=== PATIENT | female | born 1940 | race Caucasian/White ===

== ENCOUNTER → 2019-08-14 09:17 | Outpatient (BNVA) | payer MEDICARE, OTHER, SELFPAY | PROVIDERS: Family Provider Nurse Practitioner Family; PCP Nurse Practitioner; Visit Provider Nurse Practitioner | DX: I10 Essential (primary) hypertension (principal); E11.9 Type 2 diabetes mellitus without complications | CPT/HCPCS: 80053; 80061; 81000; 83036; 84443 ==

== ENCOUNTER 2019-10-26 10:35 | Outpatient (CLI) | payer MEDICARE, OTHER, SELFPAY ==
--- NOTE | 2019-10-26 10:43 | MM_ITS ---
WS: [id number] BILATERAL DIAGNOSTIC DIGITAL MAMMOGRAM WITH CAD HISTORY: HX OF BREAST CA COMPARISON: 10/24/2018 and 08/14/2017 Bilateral CC and MLO views submitted. Computer aided detection analyzed. Breast composition: There are scattered areas of fibroglandular density. Mild volume loss in the RIGH T breast from prior surgery. Distortion at the axillary tail is stable from the prior surgery. Benign calcifications in each breast. MM/[place] [id number] IMPRESSION: BI-RADS: 2-Benign FOLLOW UP: 1 Year Follow-up
[2019-10-26 11:23] LABS: Basophils # 0.1 10^3/uL (0.0-0.1); Eosinophils # 0.4 10^3/uL (0.0-0.8); Eosinophils % 4.5 %; Hematocrit 41.9 % (37.0-47.0); Hemoglobin 13.5 g/dL (11.5-15.3); Lymphocytes # 2.9 10^3/uL (0.8-4.8); Mean Corpuscular HGB Conc 32.2 g/dL (30.0-36.0); Mean Corpuscular Hemoglobin 28.4 pg (28.0-34.0); Mean Platelet Volume 10.6 fL (7.4-10.4); Monocytes # 0.7 10^3/uL (0.2-0.9); Monocytes % 8.5 %; Neutrophils # 4.1 10^3/uL (1.8-7.7); Neutrophils % 49.6 %; Nucleated Red Blood Cells % 0 %; Platelet Count 282 10^3/cmm (130-400); Red Blood Count 4.76 10^6/uL (4.1-5.3); White Blood Count 8.2 10^3/uL (4.0-10.0)
[2019-10-26 12:01] LABS: 25 Hydroxy Vitamin D 52 ng/mL (30-100); Alanine Aminotransferase 19 U/L (0-33); Albumin Level 4.3 g/dL (3.5-5.2); Alkaline Phosphatase 95 IU/L (35-105); Anion Gap 20.3 (5-19); Aspartate Amino Transferase 21 U/L (0-32); Blood Urea Nitrogen 10 mg/dL (8-23); Calcium 10.8 mg/dL (8.5-10.5); Carbon Dioxide 23 mmol/L (22-29); Chloride 97 mmol/L (98-107); Globulin 3.5 g/dL (1.3-4.6); Glucose 314 mg/dL (65-115); Osmolality Calculated 290 mOsm/kg (285-295); Potassium 4.3 mmol/L (3.5-5.1); Sodium 136 mmol/L (136-145); Total Bilirubin 0.2 mg/dL (0.15-1.2); Total Protein 7.8 g/dL (6.6-8.7)
[2019-10-26 12:29] LABS: Estmated Average Glucose 217; Hemoglobin A1C 9.2 % (4.0-6.0)
--- NOTE | 2019-11-02 09:25 | ONC FU_ITS ---
Dr. 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 She first became aware of a right breast lump in the summer of 2011. On 01/10/2012 her mammogram showed a 2.5 cm right breast mass at 12 o'clock position corresponding to 1.76 cm on ultrasound. On 02/08/2012 she underwent an excisional biopsy. The pathology revealed a 2.2 cm poorly differentiated invasive ductal carcinoma with irregular extensions into the stromal connective tissue. Microscopically, an invasive carcinoma came within 0.5 mm of the posterior margin. The associated DCIS was less than 1 mm from the inferior margin. Prognostic markers included ER positive at 96%and MS positive at99%. HER-2/jennifer was nonamplified, 1+ by IHC, FISH at 1.0. On 03/03/2012 she underwent re-excision of the breast and axillary sentinel lymph node biopsy. Surgical pathology showed a residual microscopic focus of DCIS measuring 2 mm, with negative margins. Two sentinel lymph nodes were negative for metastatic disease. Her chest x-ray on 04/08/12 had no evidence of metastatic disease. Her Oncotype DX score was 10, low risk, corresponding to 7% chance of distant recurrence following hormonal treatment. She completed 60.4 Gy of adjuvant radiation therapy on 06/12/2012. Adjuvant hormonal therapy with anastrozole 1 mg daily started on 08/14/2012. DEXA scan on 08/21/2012 showed severe osteopenia, T score -2.1 in lumbar spine. I had seen her for a followup visit on 02/13/2017. At that point her joint pain seemed to be getting worse, and I did have her stop the anastrozole. As of her follow-up visit in July 2017 she was feeling better, though at that point she had also stopped gabapentin. As she had completed 4-1/2 years of treatment, I opted not to attempt any further adjuvant hormonal therapy. Her other medical illnesses include hypertension, type II diabetes, GERD, hypothyroidism, degenerative arthritis, gout, obstructive sleep apnea, and chronic anxiety. In February 2018 she was admitted to the hospital with diastolic congestive heart failure. Her echocardiogram at that point showed normal left ventricular ejection fraction at 62%. There was no significant valvular disease reported. She also has peripheral arterial disease. Her surgical history also includes hysterectomy bilateral salpingo-oophorectomy in 1991. She is a nonsmoker. She is seen for a follow-up visit. She has been feeling pretty good generally, though she says she does not have much energy. She thinks some of that may just be related to depression, which she attributes [place]. Her ECOG score is 1. She has good appetite. She has not had fever or hot flashes. She does have sweating with the hot weather. She has occasional cough. She does not complain of shortness of breath. She reports occasional aching in the left chest. She has no GI complaints other than occasional heartburn, which she manages with medication as needed. Bowel function has been okay. She says she lost control of her bladder a long time ago. She has generalized joint pain, particularly in the hands. She thinks it is getting a little worse. She occasionally has headache. She does not have good balance. She does not have any focal neurologic symptoms. She does complain that she is getting pain in her calf muscles when she is walking. The pain is relieved by rest. Medications: AmLODIPine Besylate 1 (10 mg) Tablet Oral daily, Aspirin 1 (81 mg) Tablet Oral daily, Cholecalciferol 1 (2000 Units) Capsule Oral daily, Furosemide 1 (20 mg) Tablet Oral daily PRN, GlipiZIDE 1 (10 mg) Tablet SR 24 HR Oral b.i.d., hydrALAZINE HCl 1 Tablet (of 10 mg) Oral t.i.d., Ibuprofen 200 mg - Take 2 - 3 Tablet Oral at bedtime, Janumet XR Tablet SR 24 HR Oral daily, Levothroid 1 (88 mcg) Tablet Oral daily, Losartan Potassium 1 Tablet (of 25 mg) Oral daily, MetFORMIN HCl 1 Tablet (of 500 mg) Oral b.i.d., Metoprolol Tartrate 1 (50 mg) Tablet Oral b.i.d., Micro-K 1 (10 meq) Capsule, controlled release Oral daily PRN, PriLOSEC OTC Tablet, enteric coated Oral PRN, Valsartan-Hydrochlorothiazide 1 (320-12.5 mg) Tablet Oral daily, Venlafaxine HCl ER 1 Tablet (of 37.5 mg) Tablet SR 24 HR Oral daily Allergies: Adhesive, Narcotics, and Steri Strips. Review of Systems: Constitutional - She does not have much energy, but some of that she attributes to depression. Appetite is good and weight is stable. No fever or hot flashes. She has a lot of sweating with the hot weather. ECOG score is 1, ENMT - No sinus congestion/drainage. No mouth sores. No sore throat or difficulty swallowing, Hematologic/Lymphatic - She has easy bruising, Respiratory - No shortness of breath. She occasionally has cough. No pleuritic pain or hemoptysis, Cardiovascular - She has occasionally aching in the left chest. No palpitations, Gastrointestinal - No nausea or vomiting. She occasionally has heartburn. No diarrhea or constipation. No blood in the stool or black stools, Genitourinary (F) - No dysuria or hematuria. She has chronic bladder incontinence, Musculoskeletal - She has pain in all her joints, especially her hands. She says it is a little worse, Integumentary - No skin rash, Neurologic - She occasionally has headache. Balance is not good. No numbness or tingling. No other focal neurologic symptoms, Psychiatric - She has depression. Much of that is attributable to [place]. She has difficulty sleeping. Vital Signs: Performed on Oct 26, 2019 12:23 Height - 59.00 in Weight - 169.0 lbs (LOW) BSA - 1.72 sq.m BMI - 34.13 (HIGH) Temperature - 98.0 F (LOW) Pulse - 71 /min Respiration - 24 /min BP - 167/63 mm(hg) (HIGH) O2 Sat - 97 % Pain - 2 Physical Examination: Constitutional - She looks pretty good generally, Eyes - Sclerae nonicteric. Conjunctivae clear, ENMT - No lesions noted in the oral cavity, Hematologic/Lymphatic - No cervical or clavicular adenopathy, Respiratory - Lungs sound clear, Cardiovascular - Heart rhythm is regular. There is a II/ systolic murmur. There is no gallop or rub noted, Breasts - There is mild induration at the lumpectomy site in the right breast. There are no breast masses noted. There is no axillary adenopathy, Abdomen - Moderately distended. Liver and spleen are not enlarged. There is no abdominal mass or ascites noted and there is no inguinal adenopathy, Extremities - There is currently no edema. I am not able to palpate pedal pulses, but both feet are warm to touch, Neurologic - No focal neurologic deficits noted. Lab/Imaging: Test performed on Oct 26, 2019 10:52 Sodium 136 mmol/L TSH 0.30 uIU/mL Vitamin D (25-Hydroxy), Total 52 ng/mL Potassium 4.3 mmol/L Chloride 97 mmol/L CO2 23 mmol/L Anion Gap 20.3 BUN 10 mg/dL Creatinine 0.9 mg/dL Cr Clearance (Est) 63.35 mL/min Glucose 314 mg/dL Calcium 10.8 mg/dL Protein, Total 7.8 g/dL Albumin 4.3 g/dL Globulin 3.5 g/dL Bilirubin, Total 0.2 mg/dL ALT (SGPT) 19 U/L AST (SGOT) 21 U/L Alkaline Phosphatase 95 IU/L Hemoglobin A1C % 9.2 % WBC 8.2 10 3/uL RBC 4.76 10 6/uL HGB 13.5 g/dL HCT 41.9 % MCV 88.0 fL MCH 28.4 pg MCHC 32.2 g/dL RDW 13.0 % Platelet Count 282 10 3/cmm MPV 10.6 fL Neutrophils 4.1 10 3/uL Lymphocytes 2.9 10 3/uL Monocytes 0.7 10 3/uL Eosinophils 0.4 10 3/uL Basophils 0.1 10 3/uL Neutrophil % 49.6 % Lymphocyte % 36.0 % Monocyte % 8.5 % Eosinophil % 4.5 % Basophils % 1.0 % NRBC 0.0 /100WBC NRBC % 0 % Impression: 1. Patient with grade 3 invasive ductal carcinoma of the right breast, stage IIa, ER/MS positive and HER-2/jennifer nonamplified. 2. Her treatment included excisional biopsy in January 2012 followed by reexcision lumpectomy/axillary sentinel lymph node biopsy in February 2012. Her Oncotype DX score was 10, low risk. Adjuvant chemotherapy was not recommended. 3. She was given radiation to the right breast, completed on 06/12/2012 to a total dose of 6040 cGy. 4. Adjuvant hormonal therapy with anastrozole 1 mg daily began on 08/14/2012. Her other medical illnesses include: 5. Hypertension. 6. Type II diabetes. 7. Diastolic congestive heart failure. 8. Peripheral arterial disease. 9. Hypothyroidism. 10. GERD. 11. Degenerative arthritis. 12. Gout. 13. Obstructive sleep apnea. 12. Osteoporosis. 13. Chronic anxiety. As of her followup visit in January 2017 she was having significant fatigue and her musculoskeletal pain seemed to be getting worse. I did have her stop the anastrozole. As of her follow-up visit in July 2017 she was feeling better, though at that point she had also stopped taking gabapentin. As she had completed 4 years of treatment, I opted not to attempt any further adjuvant hormonal therapy. In February 2018 she had been admitted to the hospital with diastolic congestive heart failure. Since then she has continued to have somewhat marginal performance status, but there has been no evidence of recurrence of the breast cancer. Plan: She remains on observation/expectant management for her breast cancer. She will be scheduled for a followup visit with Dr. Mena for the claudication pain. She will be scheduled for a follow-up visit here in one year. Signed By: Humphrey Zuniga M.D. <<Signature on File>>
== END 2019-10-26 10:36 | disposition home or self-care (01) ==
LOC: RADSHAW 10:41
PROVIDERS: PCP Nurse Practitioner; Visit Provider Internal Medicine Medical Oncology
DX: Z08 Encounter for follow-up examination after completed treatment for malignant neoplasm (principal); Z85.3 Personal history of malignant neoplasm of breast; M81.0 Age-related osteoporosis without current pathological fracture; E11.51 Type 2 diabetes mellitus with diabetic peripheral angiopathy without gangrene; I11.0 Hypertensive heart disease with heart failure; I50.30 Unspecified diastolic (congestive) heart failure; E03.9 Hypothyroidism, unspecified; K21.9 Gastro-esophageal reflux disease without esophagitis; M19.90 Unspecified osteoarthritis, unspecified site; G47.33 Obstructive sleep apnea (adult) (pediatric); F41.9 Anxiety disorder, unspecified; M10.9 Gout, unspecified; Z79.84 Long term (current) use of oral hypoglycemic drugs
CPT/HCPCS: 36415; 77066; 80053; 82306; 83036; 84443; 85025; 99214

== ENCOUNTER → 2019-12-30 09:39 | Outpatient (BNVA) | payer MEDICARE, OTHER, SELFPAY | PROVIDERS: PCP Nurse Practitioner; Visit Provider Nurse Practitioner | DX: E11.65 Type 2 diabetes mellitus with hyperglycemia (principal); I10 Essential (primary) hypertension | CPT/HCPCS: 80053; 80061; 81000; 83036; 84443 ==

== ENCOUNTER → 2020-01-14 10:46 | Outpatient (BNVA) | payer MEDICARE, OTHER, SELFPAY | PROVIDERS: PCP Nurse Practitioner; Visit Provider Nurse Practitioner | DX: I10 Essential (primary) hypertension (principal); I50.9 Heart failure, unspecified; E11.65 Type 2 diabetes mellitus with hyperglycemia; E55.9 Vitamin D deficiency, unspecified | CPT/HCPCS: 80048 ==

== ENCOUNTER → 2020-03-07 14:51 | Outpatient (BNVA) | payer MEDICARE, OTHER, SELFPAY | PROVIDERS: PCP Nurse Practitioner; Visit Provider Nurse Practitioner | DX: I10 Essential (primary) hypertension (principal); E55.9 Vitamin D deficiency, unspecified | CPT/HCPCS: 80053 ==

== ENCOUNTER 2020-03-16 07:55 | Outpatient (CLI) | payer MEDICARE, OTHER, SELFPAY ==
--- NOTE | 2020-03-16 08:30 | CT_ITS ---
WS: [id number] CT HEAD TECHNIQUE: Noncontrast CT of the head obtained from the skullbase to the vertex. CLINICAL INFORMATION: headache and dizzy COMPARISON: CT 11 DLP: 925.[address] scans at [facility] use at least one of these dose optimization techniques: automat ed exposure control; mA and/or kV adjustment per patient size (includes targeted exams where dose is matched to clinical indication); or iterative reconstruction. FINDINGS: No evidence of intracranial hemorrhage or mass effect. Ventricular system and basal cisterns are harley nt. Mild small vessel changes with mild parenchymal volume loss. No extra-axial fluid collections. No evidence of mass or mass effect. Normal chery-white differentiation. Fluid within the left sphenoid sinus. Paranasal sinuses are otherwise well aerated. Mastoid air cells are well aerated. Normal visualized soft tissues. CT/CT head wo con* [id number] IMPRESSION: 1. No evidence of intracranial hemorrhage or mass effect. 2. Mild small vessel changes. Mild right volume loss. 3. Chronic lacunar infarct left basal ganglia. 4. Left sphenoid sinusitis 5. No acute intracranial findings.
== END 2020-03-16 07:56 | disposition home or self-care (01) ==
LOC: RADWPI 08:00
PROVIDERS: Family Provider Nurse Practitioner; PCP Nurse Practitioner; Visit Provider Nurse Practitioner
DX: R51.9 Headache, unspecified (principal); R42 Dizziness and giddiness; J32.3 Chronic sphenoidal sinusitis; I63.81 Other cerebral infarction due to occlusion or stenosis of small artery
CPT/HCPCS: 70450

== ENCOUNTER → 2020-05-16 14:59 | Outpatient (BNVA) | payer MEDICARE, OTHER, SELFPAY | PROVIDERS: Family Provider Nurse Practitioner; PCP Nurse Practitioner; Visit Provider Nurse Practitioner Family | DX: I50.9 Heart failure, unspecified (principal); I10 Essential (primary) hypertension | CPT/HCPCS: 80053; 83880; 85025 ==

== ENCOUNTER 2020-05-17 15:43 | Inpatient (IN) | payer MEDICARE, OTHER, SELFPAY ==
[2020-05-17] VITALS (9 sets, daily range): BP systolic 150–192; BP diastolic 75–92; PULSE 72–104; RESP 18–25; TEMP 36.8–36.9; O2SAT 87–100; BMI 33.1
--- NOTE | 2020-05-17 16:06 | ECG_ITS ---
[facility] Test Date: 2020-05-17 Pat Name: Raine Glover Department: Room: Gender: Female Under Trimmer: : 1940 Requested By: Wilber Kelley Order Number: [id number] Hakeem MD: Cecelia Araya M.D. Measurements Intervals [place] Rate: 91 P: 53 GA: 187 QRS: 99 QRSD: 105 T: -19 QT: 364 QTc: 449 Interpretive Statements SINUS RHYTHM BORDERLINE RIGHT AXIS DEVIATION [QRS AXIS > 90] ST DEVIATION AND MODERATE T-WAVE ABNORMALITY, CONSIDER LATERAL ISCHEMIA [-0.1+ mV T WAVE IN I/aVL/V5/V6]& inferior wall ischemia Compared to ECG 03/03/2018 23:53:05 Possible ischemia now present Sinus arrhythmia no longer present T-wave abnormality still present Electronically Signed On 05-17-2020 23:52:41 [employer] by Cecelia Araya M.D. [id number] f
--- NOTE | 2020-05-17 16:06 | XR_ITS ---
WS: [id number] Exam: XR chest 1V portable [id number] Date/Time of Exam: 05/17/2020 4:32 PM Reason For Exam: chest pain Comparison 03/03/2018 and 04/08/2012. Chronic interstitial changes are noted bilaterally. No consolidating infiltrates or pneumothorax. No pleural effusions. Normal cardiomediastinal structures and bony elements. Monitoring leads superimpos e the chest. XR/XR chest 1V portable [id number] IMPRESSION: 1. Chronic interstitial changes. No acute process noted.
[2020-05-17 16:44] LABS: Basophils # 0.1 10^3/uL (0.0-0.1); Basophils % 0.7 %; Eosinophils # 0.2 10^3/uL (0.0-0.8); Eosinophils % 2.2 %; Hematocrit 40.7 % (37.0-47.0); Hemoglobin 13.2 g/dL (11.5-15.3); Lymphocytes # 1.5 10^3/uL (0.8-4.8); Lymphocytes % 20.8 %; Mean Corpuscular HGB Conc 32.4 g/dL (30.0-36.0); Mean Corpuscular Hemoglobin 27.4 pg (28.0-34.0); Mean Corpuscular Volume 84.4 fL (81-99); Mean Platelet Volume 11.1 fL (7.4-10.4); Monocytes # 0.4 10^3/uL (0.2-0.9); Monocytes % 6.1 %; Neutrophils % 69.9 %; Nucleated Red Blood Cells % 0 %; Platelet Count 223 10^3/cmm (130-400); Red Blood Count 4.82 10^6/uL (4.1-5.3); Red Cell Distribution Width 13.5 % (12.1-15.1); White Blood Count 7.2 10^3/uL (4.0-10.0)
[2020-05-17 16:58] LABS: INR 1.02 (0.8-1.2)
[2020-05-17 17:01] LABS: D Dimer 1.32 ug/mIFEU (0-0.59)
[2020-05-17 17:12] LABS: Add Urine Microscopic? YES; Bilirubin Urine Neg (Negative); Blood Urine Neg (Negative); Glucose Urine UA 4+ (Normal); Ketones Urine Negative (Negative); Leukocyte Esterase Urine Negative (Negative); Nitrate Urine Negative (Negative); Protein Urine 2+ (Negative); Urine Appearance Clear (CLEAR); Urine Color Yellow (Yellow); Urobilinogen Urine 1 mg/dL (Negative)
[2020-05-17 17:12] LABS: Alanine Aminotransferase 21 U/L (0-33); Albumin Level 3.7 g/dL (3.5-5.2); Alkaline Phosphatase 93 IU/L (35-105); Aspartate Amino Transferase 24 U/L (0-32); Blood Urea Nitrogen 9 mg/dL (8-23); Calcium 9.5 mg/dL (8.5-10.5); Carbon Dioxide 30 mmol/L (22-29); Chloride 97 mmol/L (98-107); Globulin 2.4 g/dL (1.3-4.6); Glucose 330 mg/dL (65-115); NT Pro B Type Natriuretic Pept 1550 pg/mL (0-450); Osmolality Calculated 298 mOsm/kg (285-295); Sodium 138 mmol/L (136-145); Total Bilirubin 0.7 mg/dL (0.15-1.2); Total Protein 6.1 g/dL (6.6-8.7); Troponin(5th) Baseline 43 ng/L (0-10)
[2020-05-17 17:13] LABS: Anion Gap 13.9 (5-19)
[2020-05-17 17:14] LABS: Add Urine Culture? No; Bacteria Urine TRACE /hpf; RBC Urine 0-4 /hpf (0-2); Squamous Epithelial Cell Urine 0-4 /hpf (0-5); WBC Urine 0-4 /hpf (0-5)
[2020-05-17 17:16] LABS: Potassium 2.9 mmol/L (3.5-5.1)
--- NOTE | 2020-05-17 18:03 | CTR_ITS ---
PROCEDURE INFORMATION: Exam: CT Angiography Chest With Contrast Exam date and time: 05/17/2020 6:38 PM Age: 79 years old Clinical indication: Abnormal findings; Abnormal diagnostic tests; Elevated d-dimer; Shortness of breath; Prior surgery; Surgery type: RT lumpectomy; Additional info: Chest pain/dyspnea. Elevated d dimer. R/O pe TECHNIQUE: Imaging protocol: Computed tomographic angiography of the chest with intravenous contrast. 3D rendering (Not supervised by radiologist): MIP and/or 3D reconstructed images were created by the technologist. Radiation optimization: All CT scans at this facility use at least one of these dose optimization techniques: automated exposure control; mA and/or kV adjustment per patient size (includes targeted exams where dose is matched to clinical indication); or iterative reconstruction. Contrast material: OMNI 350; Contrast volume: 73 ml; Contrast route: INTRAVENOUS (IV); COMPARISON: CTA Chest-Pulmonary Emb [id number] 03/03/2018 6:34 PM RADIATION DOSE METRICS: Total DLP (mGy-cm): 522.32 FINDINGS: Pulmonary arteries: There is no pulmonary embolus. Aorta: Unremarkable. No aortic aneurysm. No aortic dissection. Lungs: There is diffuse interstitial and ground-glass opacity in the lungs compatible with pneumonitis versus CHF. More prominent bibasilar opacity is present, consistent with superimposed atelectasis, edema, or pneumonia. There is unchanged rounded ground-glass opacity right upper lobe measuring 11 mm in size series 3, image 15. No new or enlarging pulmonary nodule. Pleural space: There are small bilateral pleural effusions. Heart: The heart is enlarged. There is a small pericardial fluid collection present. Mediastinal space: A small hiatal hernia is present. Lymph nodes: Unremarkable. No enlarged lymph nodes. Spleen: The spleen is normal. An accessory splenule is present. Bones/joints: Old rib fracture deformities are noted. No acute bony abnormality is identified. Soft tissues: Unremarkable. CT/CT angio chest PE protcl [id number] IMPRESSION: 1. There is no pulmonary embolus. 2. There is diffuse interstitial and ground-glass opacity in the lungs compatible with pneumonitis versus CHF. 3. More prominent bibasilar opacity is present, consistent with superimposed atelectasis, edema, or pneumonia. Radiation Dose CTDIVOL = (mGy): DLP = 522.32 (mGy-cm)
--- NOTE | 2020-05-17 18:06 | ECG_ITS ---
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 Measurements Intervals [facility] Rate: 67 P: 20 WA: 162 QRS: 96 QRSD: 102 T: 251 QT: 402 QTc: 427 Interpretive Statements SINUS RHYTHM BORDERLINE RIGHT AXIS DEVIATION [QRS AXIS > 90] ST DEVIATION AND MODERATE T-WAVE ABNORMALITY, CONSIDER LATERAL ISCHEMIA [-0.1+ mV T WAVE IN I/aVL/V5/V6] ST DEVIATION AND MODERATE T-WAVE ABNORMALITY, CONSIDER INFERIOR ISCHEMIA [-0.1+ mV T WAVE IN II/aVF] Compared to ECG 05/17/2020 16:50:22 No significant changes Electronically Signed On 05-18-2020 0:11:38 [employer] by Cecelia Araya M.D. [id number]
[2020-05-17] MEDS: potassium chloride ER 20 mEq Tablet 40 MEQ PO (18:12)
--- NOTE | 2020-05-17 19:02 | ED_ITS ---
HPI - Chest Pain General: Chief Complaint: Chest Pain Stated Complaint: CHEST PAIN Time Seen by Provider: 05/17/20 16:06 History of Present Illness: HPI narrative: The patient is a 79-year-old female with past medical history CHF, diabetes, hypertension, XIOMARA. She comes to the ER after she felt midsternal chest pain at home. EMS arrived and gave her aspirin and sublingual nitroglycerin. She says the pain was worse with exertion but relieved itself after 10 minutes after taking the nitroglycerin sublingually. She has never had an WI she knows of but says she has been told she probably has had 1 and missed it. Denies any symptoms in the ER at present MD complaint: chest pain and chest heaviness Pertinent past history: prior WI Onset: during exertion Pain location: substernal Pain radiation: none Severity: moderate Quality: heaviness Associated symptoms: Reports no associated symptoms; Deny abdominal pain, dyspnea or palpitations Treatment prior to arrival: aspirin, nitroglycerin and oxygen Review of Systems General: Reports: 10 or more systems reviewed and unremarkable except in HPI and below Const: Denies: fatigue Eyes: Denies: change in vision, blurry vision or eye redness ENMT: Denies: throat pain, swelling of lips/tongue, ear or mastoid pain or nasal congestion Card: Reports: chest pain (Since resolved); Denies: palpitations, irregular heart rhythm, edema, dyspnea on exertion or orthopnea Resp: Denies: dyspnea, productive cough or non-productive cough GI: Denies: abdominal pain, diarrhea or GI cramping : Denies: flank pain, difficulty voiding, urinary frequency or urinary urgency Musc: Denies: neck pain, back pain, extremity pain, joint pain, joint redness, limited range of motion or muscle weakness Skin/Breast: Denies: rash, pruritus, erythema, skin pain or skin tenderness Neuro: Denies: headache(s), numbness in extremities, weakness in extremities, sensory changes, difficulty walking, dizziness, confusion or Slurred speech present Psych: Denies: anxiety or depression Endo: Denies: polyuria All/Imm: Denies: urticaria, throat swelling or tongue swelling PFSH ED PFSH: Medical History (Updated 05/17/20 @ 22:57 by Wilber Kelley MD) Adult onset hypothyroidism CHF (congestive heart failure) Controlled diabetes mellitus with hyperglycemia GERD (gastroesophageal reflux disease) Gout Hearing loss right ear History of breast cancer HTN (hypertension) Non compliance w medication regimen XIOMARA (obstructive sleep apnea) PAD (peripheral artery disease) Status post angioplasty of lower extremities bilaterally as per the patient Urinary bladder disorder wears attends Vitamin D deficiency Surgical History S/P cataract extraction S/P hysterectomy S/P lumpectomy of breast Right Family History Grandmother Cancer BREAST Social History Smoking and tobacco status: never smoked Second hand smoke exposure: No Smoking risk assessment/counseling performed?: No Alcohol intake: never Desire information about alcohol rehabilitation?: No Counseling given: No Desire information about substance/drug rehabilitation?: No Counseling given: No Adopted: No Caregiver/support person: No Lives independently: Yes Household members: none Housing: House Marital status: / Number of children: 1 Number of grandchildren: 1 Highest education level completed: High School Graduate service: No Current occupational status: retired Pets and animals: Yes Pets & animals: dog(s) History of recent travel: No Current gender identity: Female Special sydnie needs: No Physical Exam Const: COMMON NORMALS: no acute distress, average body habitus, patient oriented x3, no limitations, healthy appearing, alert and well nourished GENERAL APPEARANCE: cooperative, comfortable, well kempt and well developed ORIENTATION/CONSCIOUSNESS: Yes awake, Yes oriented to person, Yes oriented to place and Yes oriented to time HENMT: COMMON NORMALS: normocephalic, external ears normal and Normal external nose present HEAD & SCALP: normal to inspection and normocephalic NOSE: Normal external nose present EXTERNAL EAR: Yes external ears normal MOUTH: Normal oral and palatal mucosa present THROAT: posterior oropharynx normal Eye: COMMON NORMALS: Equal, round and reactive pupils present and EOMs intact bilaterally GENERAL EYE: appearance normal, both eyes and all related structures PUPIL: Yes Equal, round and reactive pupils present Neck/C-Spine: COMMON NORMALS: full ROM, no lymphadenopathy, no meningeal signs and no JVD GENERAL: Yes normal visual inspection Lymph: LYMPHATIC: no lymphadenopathy noted Chest: COMMONS NORMALS: normal inspection of the chest and normal palpation of entire chest wall Resp: COMMON NORMALS: normal respiratory effort, No retractions, No use of accessory muscles, clear to auscultation bilaterally and percussion normal EF FORT & INSPECTION: Yes able to speak in complete sentences AUSCULTATION: clear to auscultation bilaterally PERCUSSION: percussion normal Cardio: COMMON NORMALS: no JVD, regular rate, regular rhythm, S1 normal heart sound present, S2 normal heart sound present and Peripheral pulses 2+ throughout RATE: regular rate RHYTHM: regular rhythm HEART SOUNDS: S1 normal heart sound present and S2 normal heart sound present PERIPHERAL PULSES: Peripheral pulses 2+ throughout GI: COMMON NORMALS: Normal to inspection, nondistended, normoactive bowel sounds present, Soft to palpation, non-tender and no masses INSPECTION: Yes normal to inspection PALPATION: Yes Soft to palpation : COMMON NORMALS: Yes no CVA tenderness BLADDER/KIDNEY EXAM: Yes no CVA tenderness Back/Pelvis: COMMON NORMALS: no CVA tenderness, thoracic and lumbar spine normal to inspection, no thoracic nor lumbar tenderness and thoraco-lumbar ROM normal Extremity: COMMON NORMALS: normal to inspection, full ROM, capillary refill normal, no joint enlargement and no pedal edema GENERAL: Yes normal exam except as noted Neuro: COMMON NORMALS: patient oriented x3, CN's II-XII intact bilaterally, moves all extremities, no focal motor deficits, no sensory deficits noted and gait normal SENSORIUM/ORIENTATION: Yes alert, Yes oriented to person, Yes oriented to place and Yes oriented to time MENINGEAL SIGNS: Yes no meningeal signs Psych: COMMON NORMALS: mental status grossly normal, Normal thought process present, cooperative, normal affect and speech normal APPEARANCE: Yes well kempt ATTITUDE: Yes calm SPEECH: Yes normal speech THOUGHT PROCESS: Normal thought process present Skin: COMMON NORMALS: no rashes or lesions noted GENERAL SKIN EXAM: no rashes or lesions noted Course Vital Signs: Vital signs: Vital Signs Temperature 98.3 F 05/17/20 15:48 Pulse Rate 77 05/17/20 21:45 Respiratory Rate 25 H 05/17/20 21:45 Blood Pressure 154/82 05/17/20 20:42 Pulse Oximetry 100 05/17/20 21:45 MDM - Chest Pain MDM Narrative: Medical decision making narrative: The patient came in for midsternal chest pain suspicious for true angina. Symptoms were relieved by nitroglycerin in the field and she was also given aspirin in the field. She did not have any more chest pain in the ER. Her first troponin was relatively normal however her delta troponin in 2 hours was increased 40. This is suspicious and discussed with Dr. Chatman who recommended diagnosis NSTEMI and that she be admitted. Discussed with Dr. Nicole who accepts to inpatient. Lab Data: Labs: Lab Results 05/17/20 05/17/20 05/17/20 Range/Units 16:20 16:20 16:20 WBC 7.2 (4.0-10.0) 10^3/ uL RBC 4.82 (4.1-5.3) 10^6/u L Hgb 13.2 (11.5-15.3) g/dL Hct 40.7 (37.0-47.0) % MCV 84.4 (81-99) fL MCH 27.4 L (28.0-34.0) pg MCHC 32.4 (30.0-36.0) g/dL RDW 13.5 (12.1-15.1) % Plt Count 223 (130-400) 10^3/c mm MPV 11.1 H (7.4-10.4) fL Neut % (Auto) 69.9 % Lymph % (Auto) 20.8 % [place] % (Auto) 6.1 % Eos % (Auto) 2.2 % Baso % (Auto) 0.7 % Neut # (Auto) 5.00 (1.8-7.7) 10^3/u L Lymph # (Auto) 1.5 (0.8-4.8) 10^3/u L [place] # (Auto) 0.4 (0.2-0.9) 10^3/u L Eos # (Auto) 0.2 (0.0-0.8) 10^3/u L Baso # (Auto) 0.1 (0.0-0.1) 10^3/u L Nucleated RBC % (a uto) 0 % Nucleated RBCs # 0.0 /100WBC PT 13.70 (12.1-14.9) SECO NDS INR 1.02 (0.8-1.2) D-Dimer 1.32 H (0-0.59) ug/mIFE U Sodium 138 (136-145) mmol/L Potassium 2.9 L (3.5-5.1) mmol/L Chloride 97 L (98-107) mmol/L Carbon Dioxide 30 H (22-29) mmol/L Anion Gap 13.9 (5-19) BUN 9 (8-23) mg/dL Creatinine 0.6 (0.5-0.9) mg/dL GFR Calculation Not Reportable Glucose 330 H (65-115) mg/dL Calculated Osmolal ity 298 H (285-295) mOsm/k g Calcium 9.5 (8.5-10.5) mg/dL Total Bilirubin 0.7 (0.15-1.2) mg/dL AST 24 (0-32) U/L ALT 21 (0-33) U/L Alkaline Phosphata se 93 (35-105) IU/L Troponin T Baselin e (0-10) ng/L Troponin T 120 Min kolton (0-10) ng/L Delta Troponin T (0-10) ABS# NT-Pro-B Natriuret Pep 1550 H (0-450) pg/mL Total Protein 6.1 L (6.6-8.7) g/dL Albumin 3.7 (3.5-5.2) g/dL Globulin 2.4 (1.3-4.6) g/dL Urine Color (Yellow) Urine Appearance (CLEAR) Urine pH (5-7) Ur Specific Gravit y (1.005-1.030) Urine Protein (Negative) Urine Glucose (UA) (Normal) Urine Ketones (Negative) Urine Blood (Negative) Urine Nitrate (Negative) Urine Bilirubin (Negative) Urine Urobilinogen (Negative) mg/dL Ur Leukocyte Jocelyn ase (Negative) Urine RBC (0-2) /hpf Urine WBC (0-5) /hpf Ur Squamous Epith Cells (0-5) /hpf Amorphous Sediment Urine Bacteria (NONE) /hpf 05/17/20 05/17/20 05/17/20 Range/Units 16:20 16:42 18:40 WBC (4.0-10.0) 10^3/ uL RBC (4.1-5.3) 10^6/u L Hgb (11.5-15.3) g/dL Hct (37.0-47.0) % MCV (81-99) fL MCH (28.0-34.0) pg MCHC (30.0-36.0) g/dL RDW (12.1-15.1) % Plt Count (130-400) 10^3/c mm MPV (7.4-10.4) fL Neut % (Auto) % Lymph % (Auto) % [place] % (Auto) % Eos % (Auto) % Baso % (Auto) % Neut # (Auto) (1.8-7.7) 10^3/u L Lymph # (Auto) (0.8-4.8) 10^3/u L [place] # (Auto) (0.2-0.9) 10^3/u L Eos # (Auto) (0.0-0.8) 10^3/u L Baso # (Auto) (0.0-0.1) 10^3/u L Nucleated RBC % (a uto) % Nucleated RBCs # /100WBC PT (12.1-14.9) SECO NDS INR (0.8-1.2) D-Dimer (0-0.59) ug/mIFE U Sodium (136-145) mmol/L Potassium (3.5-5.1) mmol/L Chloride (98-107) mmol/L Carbon Dioxide (22-29) mmol/L Anion Gap (5-19) BUN (8-23) mg/dL Creatinine (0.5-0.9) mg/dL GFR Calculation Glucose (65-115) mg/dL Calculated Osmolal ity (285-295) mOsm/k g Calcium (8.5-10.5) mg/dL Total Bilirubin (0.15-1.2) mg/dL AST (0-32) U/L ALT (0-33) U/L Alkaline Phosphata se (35-105) IU/L Troponin T Baselin e 43 H (0-10) ng/L Troponin T 120 Min [place] 86.15 H (0-10) ng/L Delta Troponin T 43.15 H* (0-10) ABS# NT-Pro-B Natriuret Pep (0-450) pg/mL Total Protein (6.6-8.7) g/dL Albumin (3.5-5.2) g/dL Globulin (1.3-4.6) g/dL Urine Color Yellow (Yellow) Urine Appearance Clear (CLEAR) Urine pH 7.0 (5-7) Ur Specific Gravit y 1.010 (1.005-1.030) Urine Protein 2+ H (Negative) Urine Glucose (UA) 4+ H (Normal) Urine Ketones Negative (Negative) Urine Blood Neg (Negative) Urine Nitrate Negative (Negative) Urine Bilirubin Neg (Negative) Urine Urobilinogen 1 H (Negative) mg/dL Ur Leukocyte Jocelyn ase Negative (Negative) Urine RBC 0-4 H (0-2) /hpf Urine WBC 0-4 H (0-5) /hpf Ur Squamous Epith Cells 0-4 H (0-5) /hpf Amorphous Sediment Not Reportable Urine Bacteria Trace (NONE) /hpf Discharge Plan Discharge Patient Disposition: Admitted As Inpatient Admit Provider: Anabela Nicole Clinical Impression: NSTEMI (non-ST elevated myocardial infarction) Condition: Stable Coding Level of Care Code ED Auto Roller for g Fwd Exam Comprehensive
[2020-05-17 19:04] LABS: Troponin 5 2HR 86.15 ng/L (0-10)
[2020-05-17 19:18] LABS: Troponin 5 2HR Delta 43.15 ABS# (0-10)
--- NOTE | 2020-05-17 19:45 | PM.HP ---
Providers/Chief Complaint Primary Care Provider: Jamie Brock, METER READER INSPECTOR-C Chief Complaint: CHEST PAIN History of Present Illness Raine Glover is a 79 year old female no known previous history of coronary artery disease presented today with chief complaint of midsternal chest pain. Patient is stating that for last 3 to 4 days she has been having shortness of breath on exertion, she was seen at [facility] for similar complaint and was recommended to go to the hospital for further evaluation but she was holding off. She went for grocery shopping at [facility] today and when she was unloading her shopping cart in her car she started experiencing substernal chest heaviness, her friend took her to the clinic, time where EKG was obtained it showed some concerning changes she was told that he was having a mini heart attack hence was directed towards our ER. Patient is stating that her chest pain persisted until she received aspirin and sublingual nitroglycerin which was given by EMS. She is describing this pain as heaviness nonradiating not associated with nausea or vomiting or diaphoresis. No recent orthopnea or PND she has been compliant with her Lasix for congestive heart failure. She is endorsing losing 5 to 10 pounds. Patient is stating that about 3 to 4 years ago she underwent balloon angioplasty of bilateral lower extremities which significantly improved her leg pains. She is also endorsing a fall after tripping over her dog but she was told to get carotid Doppler for a possible TIA. At the time of my evaluation she was hypertensive no active chest pain sinus rhythm, was saturating well on room air. Significant delta troponin noted ST depression 1 mm V4 V5 V6, inferior lateral T wave inversions Chest x-ray did not reveal any pneumonia, potassium 2.9, glucose 330 without signs of DKA, D-dimer 1.3 CT chest did not reveal PE findings consistent with CHF She has been given therapeutic dose of Lovenox in the ER Dr. Chatman has been notified as well. Review of Systems Const: Reports: fatigue and malaise; Denies: fever(s), chills or body aches Eyes: Denies: change in vision ENMT: Denies: throat pain Card: Reports: chest pain and dyspnea on exertion; Denies: orthopnea or leg pain with exertion Resp: Reports: dyspnea GI: Denies: abdominal pain : Denies: flank pain or urinary frequency Musc: Denies: neck pain or extremity swelling Skin/Breast: Reports: lesions; Denies: rash or new lesions Neuro: Denies: headache(s) Psych: Denies: anxiety Endo: Denies: polyuria Kade/Lymph: Denies: easy bruising All/Imm: Denies: urticaria Medications/Allergies Home Medications Medication Instructions Recorded Confirmed Last Taken Type amlodipine 10 mg tablet 10 mg PO DAILY 07/17/19 05/17/20 Unknown History hydralazine 10 mg tablet 10 mg PO BID tab 07/21/19 05/17/20 Unknown History aspirin 81 mg tablet,delayed 81 mg PO DAILY 01/01/20 05/17/20 Unknown History release cholecalciferol (vitamin D3) 125 125 mcg PO DAILY #90 cap 01/01/20 05/17/20 Unknown Rx mcg (5,000 unit) capsule omeprazole 20 mg capsule,delayed 20 mg PO DAILY PRN 01/01/20 05/17/20 Unknown History release walker #1 each 03/07/20 05/17/20 Unknown Rx meclizine 25 mg tablet 25 mg PO .at bedtime #30 tab 03/10/20 05/17/20 Unknown Rx insulin detemir U-100 100 unit/mL 20 unit SUBCUT DAILY #15 ml 03/29/20 05/17/20 Unknown Rx (3 mL) subcutaneous pen liraglutide 0.6 mg/0.1 mL (18 mg/3 1.2 mg SUBCUT DAILY #9 ml 03/29/20 05/17/20 Unknown Rx mL) subcutaneous pen injector pen needle, diabetic 33 gauge x #100 ea 03/29/20 05/17/20 Unknown Rx /32 atorvastatin 20 mg tablet 20 mg PO DAILY #90 tab 04/13/20 05/17/20 Unknown Rx glipizide 10 mg tablet 10 mg PO BID #180 tab 04/13/20 05/17/20 Unknown Rx levothyroxine 88 mcg tablet 88 mcg PO DAILY #90 tab 04/13/20 05/17/20 Unknown Rx losartan 100 mg tablet 100 mg PO DAILY #90 tab 04/13/20 05/17/20 Unknown Rx metformin 500 mg tablet,extended 500 mg PO BID #180 tab 04/13/20 05/17/20 Unknown Rx release 24 hr metoprolol tartrate 50 mg tablet 50 mg PO BID #180 tab 04/13/20 05/17/20 Unknown Rx potassium citrate 5 mEq (540 mg) 5 meq PO BID #180 tab 04/13/20 05/17/20 Unknown Rx tablet,extended release venlafaxine 37.5 mg 37.5 mg PO DAILY #90 cap 04/13/20 05/17/20 Unknown Rx capsule,extended release 24 hr amoxicillin 875 mg-potassium 1 tab PO BID 10 Days #20 tab 05/16/20 05/17/20 Unknown Rx clavulanate 125 mg tablet furosemide 20 mg tablet See Rx Instructions PO DAILY 30 05/16/20 05/17/20 Unknown Rx Days #33 tab nystatin 100,000 unit/gram topical 1 applic TOPICAL TID 30 Days #60 g 05/16/20 05/17/20 Unknown Rx powder Allergies Allergy/AdvReac Type Severity Reaction Status Date / Time adhesive tape Allergy Unknown ALGY-Rash Verified 05/17/20 09:38 codeine Allergy Unknown ALGY-Rash Verified 05/17/20 09:38 morphine Allergy Unknown Verified 05/17/20 09:38 acetaminophen AdvReac Unknown ADR-Nausea Verified 05/17/20 09:38 propoxyphene AdvReac Unknown ADR-Nausea Verified 05/17/20 09:38 PFSH Acute PFSH: Medical History (Updated 05/17/20 @ 21:31 by Anabela Nicole MD) Adult onset hypothyroidism CHF (congestive heart failure) Controlled diabetes mellitus with hyperglycemia GERD (gastroesophageal reflux disease) Gout Hearing loss right ear History of breast cancer HTN (hypertension) Non compliance w medication regimen XIOMAAR (obstructive sleep apnea) PAD (peripheral artery disease) Status post angioplasty of lower extremities bilaterally as per the patient Urinary bladder disorder wears attends Vitamin D deficiency Surgical History S/P cataract extraction S/P hysterectomy S/P lumpectomy of breast Right Family History Grandmother Cancer BREAST Social History Smoking and tobacco status: never smoked Second hand smoke exposure: No Smoking risk assessment/counseling performed?: No Alcohol intake: never Desire information about alcohol rehabilitation?: No Counseling given: No Desire information about substance/drug rehabilitation?: No Counseling given: No Adopted: No Caregiver/support person: No Lives independently: Yes Household members: none Housing: House Marital status: / Number of children: 1 Number of grandchildren: 1 Highest education level completed: High School Graduate service: No Current occupational status: retired Pets and animals: Yes Pets & animals: dog(s) History of recent travel: No Current gender identity: Female Special sydnie needs: No Vitals/I&O/Wt Last Vital Signs Temp 98.3 F 05/17/20 15:48 Pulse 82 05/17/20 19:10 Resp 19 H 05/17/20 19:10 BP 150/92 05/17/20 18:06 Pulse Ox 100 05/17/20 19:10 Weight last 48 hrs Weight 74.389 kg Physical Exam Narrative: EXAM NARRATIVE: This is a very pleasant elderly female who is currently sitting comfortably in semi-Franco position saturating well on room air Not complaining of active chest pain or acute respite distress Appears stated age S1, S2 no tachycardia or signs of heart failure, systolic murmur right second intercostal space grade 2/6 No carotid bruit noted Abdomen soft nontender bowel sound present Lower extremity no edema noted Awake alert oriented x3 GCS 15 No neurological deficit Bilateral breath sounds without adventitious rhonchi or wheezing, findings would be consistent with CHF bibasilar crackles Appropriate mood and affect Patient endorsing joint pain but no active swelling or redness Appropriate mood and affect Data : 05/17/20 16:20 05/17/20 16:20 A&P Assessment and plan (1) NSTEMI (non-ST elevated myocardial infarction): Status: Acute (2) Hyperglycemia: Status: Acute (3) Hypokalemia: Status: Acute Additional A&P Information NSTEMI Typical chest pain relieved with nitro lasting more than 30 minutes Significant delta troponin with ischemic changes in inferior lateral leads Dr. Deras consulted Started aspirin Plavix loading dose, start ACS protocol therapeutic dose of Lovenox initiated in the ER No active chest pain, CTA rule out PE Serial troponin and EKG Echo in the morning She has history of peripheral vascular disease status post balloon angioplasty no active exacerbation of pain, most likely she will benefit from an angiogram Hyperglycemia without DKA: I will keep her on consistent carb moderate sliding scale and reduce her detemir to Lantus 15 units for now Hypokalemia most likely secondary to Lasix use No active vomiting or diarrhea Check magnesium level, potassium repleted She is euvolemic Congestive heart failure without acute exacerbation Patient looks euvolemic Hold her Lasix for tonight replete potassium Hypothyroidism: Check TSH, continue levothyroxine Full code Consistent carb cardiac diet DVT prophylaxis therapeutic Lovenox Attestations Medical Necessity Statement*: Anticipating stay cross more than 2 midnights for management for NSTEMI and hyperglycemia Time Spent in Patient Care: (>than 50% of time spent in counselling and/or direct pt care on unit). 50mins Coding Level of Care Code Acute Cost And Risk Analysis Manager for Kenny Dominguezd Diagnoses NSTEMI (non-ST elevated myocardial infarction) I21.4 Hyperglycemia R73.9 Hypokalemia E87.6
[2020-05-17] MEDS: enoxaparin 80 mg/0.8 mL Syringe 70 MG SUBCUT (19:55)
--- NOTE | 2020-05-17 22:06 | ECG_ITS ---
[facility] Test Date: 2020-05-17 Pat Name: Raine Glover Department: Room: 279 Gender: Female Portal Administrator: : 1940 Requested By: Wilber Kelley Order Number: [id number] Hakeem MD: Cecelia Araya M.D. Measurements Intervals [place] Rate: 80 P: 41 WV: 170 QRS: 70 QRSD: 106 T: 210 QT: 361 QTc: 419 Interpretive Statements SINUS RHYTHM ST DEVIATION AND MODERATE T-WAVE ABNORMALITY, CONSIDER LATERAL ISCHEMIA [-0.1+ mV T WAVE IN I/aVL/V5/V6] Compared to ECG 05/17/2020 18:40:20 No significant changes Electronically Signed On 05-18-2020 0:14:27 FIRE WATCHER by Cecelia Araya M.D. [id number]
[2020-05-17 23:10] LABS: Troponin 5 6HR 135.5 ng/L (0-10)
[2020-05-17 23:11] LABS: Troponin 5 6HR Delta 92.5 ng/L (0-12)
[2020-05-18] VITALS (12 sets, daily range): BP systolic 163–192; BP diastolic 60–83; PULSE 71–93; RESP 11–23; TEMP 36.6–37.2; O2SAT 92–97
[2020-05-18] MEDS: aspirin 325 mg EC Tablet PO (00:07)
[2020-05-18] MEDS: clopidogrel 300 mg Tablet PO (00:08)
[2020-05-18] MEDS: metoprolol tartrate 25 mg Tablet 12.5 MG PO (00:09)
[2020-05-18] MEDS: hyDRALAzine 10 mg Tablet PO ×2 (00:09→10:02)
[2020-05-18 05:25] LABS: Basophils % 0.6 %; Eosinophils # 0.3 10^3/uL (0.0-0.8); Eosinophils % 4.8 %; Hematocrit 37.3 % (37.0-47.0); Hemoglobin 11.7 g/dL (11.5-15.3); Lymphocytes # 2.1 10^3/uL (0.8-4.8); Lymphocytes % 30.7 %; Mean Corpuscular HGB Conc 31.4 g/dL (30.0-36.0); Mean Corpuscular Hemoglobin 27.7 pg (28.0-34.0); Mean Corpuscular Volume 88.4 fL (81-99); Mean Platelet Volume 11.4 fL (7.4-10.4); Monocytes # 0.5 10^3/uL (0.2-0.9); Monocytes % 7.5 %; Neutrophils # 3.77 10^3/uL (1.8-7.7); Neutrophils % 56.1 %; Nucleated Red Blood Cells % 0 %; Platelet Count 194 10^3/cmm (130-400); Red Blood Count 4.22 10^6/uL (4.1-5.3); Red Cell Distribution Width 13.7 % (12.1-15.1); White Blood Count 6.7 10^3/uL (4.0-10.0)
[2020-05-18 06:14] LABS: Glucose Point of Care 289 mg/dL (70-110)
[2020-05-18 06:38] LABS: Anion Gap 14.9 (5-19); Blood Urea Nitrogen 10 mg/dL (8-23); Calcium 10.1 mg/dL (8.5-10.5); Carbon Dioxide 30 mmol/L (22-29); Chloride 99 mmol/L (98-107); Glucose 297 mg/dL (65-115); Osmolality Calculated 302 mOsm/kg (285-295); Sodium 141 mmol/L (136-145)
[2020-05-18 06:45] LABS: Potassium 2.9 mmol/L (3.5-5.1)
--- NOTE | 2020-05-18 09:10 | PC.CHAP ---
Pastoral Care Encounter/Spiritual Assessment Type of Contact [] Declined civil preparedness coordinator visit [] Patient/Family/Request visit [] Outpatient visit [] Follow-up visit [] Physician referral [] Code/Alert [X] Routine visit [] Staff referral [] Actively dying [] Patient sleeping [] Family support [] [] Out of room [] Palliative care [] [] Receiving care in room [] Pre-surgical visit [] Trauma [] Long length of stay [] ICU visit [] Other: Relational/Emotional Strength [] Patient feels connected with others/family/visitors/staff [] Distress [] Loneliness/isolation [] Abandonment Spirituality of Patient [] Person of Katelynn [] Attends Mormon of their Katelynn [] Believes in Prayer [] Reads Bible or Quaker materials [] There are Spiritual issues to be addressed Director Of Land Interventions [] Prayer [] Active listening [] Non-anxious presence [] Spiritual/emotional support [] Crisis/trauma care [] Spiritual counseling [] Bereavement support [] Provided bereavement packet [] Provided Bible/devotional materials [] Provided toy/stuffed animal, coloring book to patient or family member [] Provided Communion [] Anointing/[facility] [] Salvation [] Completed spiritual assessment [] Other: Impact on Illness or Injury [] Angry [] Fearful [] Anxious [] Often cries [] Exhaustion [] Unable to work [] Unable to attend zoroastrianism [] Unable to walk/stand [] Unable to read [] Unable to drive [] Unable to eat/drink [] Unable to sleep [] Unable to be with family [] Patient intubated [] Other: Summary Time spent with patient
[2020-05-18] MEDS: amlodipine 10 mg Tablet PO (10:00)
[2020-05-18] MEDS: metoprolol succinate ER (24 HR) 25 mg Tablet 12.5 MG PO (10:01)
[2020-05-18] MEDS: atorvastatin 40 mg Tablet 80 MG PO (10:02)
[2020-05-18] MEDS: levothyroxine 88 mcg Tablet PO (10:02)
[2020-05-18] MEDS: losartan 50 mg Tablet 100 MG PO (10:02)
[2020-05-18] MEDS: aspirin 81 mg EC Tablet PO (10:03)
--- NOTE | 2020-05-18 10:23 | XACV_ITS ---
Exam Room: Pending sale to [facility] Ht: 150 cm Wt: 74 kg BSA: 1.79 m2 Gender: Female : 1940 Any Known Allergies: Other Exam Priority: Routine Procedure(s): Procedure Description: Diagnostic procedure Procedure Description: Coronary Angiography Procedure Description: Pressure Wire Diagnostic Cath Status: Urgent Diagnostic Findings * mLAD to dLAD: Moderate 60% stenosis, ABEL: 3 flow. Apical LAD supplies collateral flow to distal RCA.. * Proximal to mid circumflex Coronary Artery: Moderate 50% stenosis, ABEL: 3 flow. * There is a subtotal occlusion of * ostial RCA. pRCA: Severe 99% stenosis, ABEL: 3 flow. RCA has chronic total occlusion. This territory supplied by collaterals from apical LAD.. * LM has 0% stenosis. * dRCA: Severe 100% stenosis, ABEL: 3 flow. * Coronary angiography shows right dominance. 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 A JR4 guide catheter was used to engage the RCA. A 0.014 run-through guidewire was used initially to cross the ostial RCA lesion and then attempted to cross chronic total occlusion of distal RCA. After several attempts, this was unsuccessful. As patient had collaterals from LAD, we stopped further attempts. Then we engaged left main artery using XB guide catheter. Pressure wire was used to perform FFR of proximal to mid left circumflex artery. FFR value of 0.95 was obtained. This was nonischemic. At this time pressure wire was removed. Final angiogram was performed and guide catheter was removed. Patient left the Health Unit Supervisor in stable condition.. Conclusions 1. Severe ostial RCA subtotal occlusion 2. and distal RCA chronic total occlusion. 3. RCA territory supplied via collaterals from LAD. Mid LAD has moderate stenosis. Left circumflex artery has proximal to mid moderate stenosis. FFR was nonischemic. Attempt at revascularization of chronic total occlusion of RCA was unsuccessful. Medical therapy will be advised as patient is asymptomatic now and has good collaterals supplied from LAD. Recommendations * Aggressive medical management. * Continue aspirin and Plavix for at least 1 year. * High intensity statin therapy. * Continue metoprolol. Add Imdur. * In case patient continues having chest pain as outpatient, will consider stress test to rule out ischemia in LAD territory. Interventional RX Recommendation: medical therapy and/or counseling Diagnostic RX Recommendation: medical therapy and/or counseling Pressures Phase:Rest AO : 174 / 71 ( 105 ) @ 10:13:00 AM 179 / 66 ( 103 ) @ 10:24:00 AM Clinical Evaluation EBL: 5mL-10mL Procedural Details Procedure Consent Obtained. Pre-Procedure Time Out. Identified patient by full name and date of as verbalized by the patient/guarantor. Does the consent match the physician's order: Yes. Accurate & Complete Informed Consent: Yes. Inpatient/Outpatient History & Physical on Chart: Yes. If H&P is completed, is and addenduem needed: No; If yes, is the addendum complete: N/A. Visualize and Verify Site with Patient/Guarantor: N/A. Relevant Radiology Images available: N/A. Pre-op teaching completed and patient verbalized understanding. The risks, benefits, and alternatives of sedation and/or procedure were discussed by physician. The patient agrees to continue. Procedure started. [facility] Clinical Fraility Score: 4: Vulnerable. Health Unit Supervisor Indications: ACS <= 24 hours. Chest Pain Symptom Assessment: Typical Angina Symptoms. Cardiovascular Instability: No. Correct patient, site and procedure confirmed by cath team. PERRLA. 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 Lungs clear x 5 lobes. IV Site on Arrival: 20 gauge in the left forearm. IV Fluids: 0.9% NaCl at KVO. 0 mL infused prior to medical laboratory technologist. Pre Procedural Pulses: bilateral dorsalis pedis was Doppled. Pre Procedural Pulses: bilateral posterior tibial was Doppled. Pre Procedural Pulses: bilateral radial was 3+. Oxygen started at 2liters/min via nasal canula. bilateral groins was prepped with chloroprep then draped in the usual sterile fashion. Physician arrived. Equipment: 6F - Radial. Cardiac Cath Pack. ACIST Manifold Kit Model BT 2000. Heparinized Saline (2 units/mL), 1000 mL bag. Baseline sample Acquired. HR: 72 BPM. Physician scrubbed in. Immediate Pre-Procedure Time Out. Correct Patient: Yes; Correct Procedure: Yes; Correct Site: Yes; Correct Patient Position: Yes; Correct Supplies: Yes; Dried Flammable Prep: Yes; Blood Products Available: N/A;. Lidocaine 1% infiltrated to the right radial. Arterial access obtained. A 5 belgian TIG catheter in over wire. Catheter redirected to the RCA. Catheter out. Inventory is TR 180cm Runthrough NS extra floppy 0.014 wire. Inventory is CRD 6FR JR 4 GUIDE 100cm. 6 belgian JR 4 guide catheter was inserted over the wire. Runthrough guidewire was advanced through the guide catheter to lesion in the prox RCA. Wire out. Guide catheter out. Inventory is CRD 6 FR XB 3.5 GUIDE. 6 belgian XB 3.5 guide catheter was inserted over the wire. Guide catheter out. 6 belgian XB 3 guide catheter was inserted over the wire. Inventory is CRD 6FR XB 3 GUIDE. FFR guidewire was advanced through the guide catheter to lesion in the mid Circ. An FFR value of 0.95 was obtained for a lesion located at Prox CX. Wire out. Guide catheter out. Physician scrubbed out. A TR Band was successful obtaining hemostatsis at the Right Radial artery insertion site. TR band placed. Hemostasis obtained. Post Procedure: Pulses reassessed and unchanged. PERRLA. 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 No VTE prophylaxis required. Medication's Wasted: Lidocaine 1% = 18 mL. Medication's Wasted: Heparin = 1000 units. Medication's Wasted: Nitro = 49.6 mg. Medication's Wasted: Other = adenosine 69 mg. Medication's Wasted: Other = fentanyl 50 mcg. Medication's Wasted: Other = versed 1 mg. Total IV fluids: 75 mL. Contrast type used: Omnipaque 300 mgI/mL, 500 mL bottle. Post-op diagnosis: moderate CAD. Complications: none. Estimated blood loss: 5mL-10mL. Procedure completed. Patient transferred by wheelchair to 1st floor. Vital chart was stopped. Access Site Site: Right Radial artery Sheath Size: 6 Fr Hemostasis Method: TR Band Hemostasis Success: Successful Procedure Medications Start: 3:57 PM Stop: 3:57 PM Medication: Versed Amount: 1 mg Route: I.V. Start: 3:57 PM Stop: 3:57 PM Medication: Fentanyl Amount: 50 mcg Route: I.V. Start: 4:10 PM Stop: 4:10 PM Medication: Nitrogylcerin Amount: 200 mcg Route: I.A. Start: 4:49 PM Stop: 4:49 PM Medication: Hydralazine Amount: 10 mg Route: I.V. Start: 4:50 PM Stop: 4:50 PM Medication: Nitrogylcerin Amount: 200 mcg Route: I.C. Start: 5:01 PM Stop: 5:01 PM Medication: Hydralazine Amount: 10 mg Route: I.V. I, the attending physician, have reviewed and verified all procedure medications. Yes, all medications given per verbal order History/Risk Factors Hypertension: Yes Dyslipidemia: Yes Peripheral Arterial Disease (PAD): Yes Myocardial Infarction ([place]): No Obesity: No Renal Disease: No Tobacco Use: Never Prior Interventions PCI: No CABG: No Valve Surgery: No Report Signatures Finalized by Compa Conley MD on 05/28/2020 05:51 PM
--- NOTE | 2020-05-18 10:45 | PM.CONSULT ---
Providers/Reason For Consult Consulting Physican/Specialty*: Dr. 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 Zuniga). She also has degenerative arthritis, gout, gastroesophageal reflux disease hypothyroidism and history of anxiety she presented for evaluation of shortness of breath and chest pain. She has been having shortness of breath on laying down as well as with exertion for last couple of days. Yesterday she was at a grocery store and later on developed chest heaviness that lasted for some time about 20-30 minutes and then got relieved. On her way back from the store she went back to her primary care physician an EKG was performed and eventually she was sent to the ER for further evaluation by EMS she denies having any lower extremity swelling, fever, chills, diarrhea nausea or vomiting. She has been pain-free overnight and this morning. Chest x-ray did not show any acute abnormality. CT scan did not show any findings of PE. EKG with ST depression and T wave inversion in 1 aVL and V4 to V6. Some ST depression also noted in inferior leads. She received aspirin and therapeutic Lovenox in the ER and was admitted to the floor for further management. Labs showed baseline troponin T of 43, at 120 minutes of 86 and at 6 hours of 136. She denies having any fever, chills or contact with any known Covid positive patients. She lives by herself and her grandson lives in [place]. She used to follow-up with Dr. Mena and last saw him back in October. EKG on arrival showed sinus rhythm borderline right axis deviation, ST depression and T wave inversion in lead II, III, aVF,V5 to V6 with ST depression in V4. Follow-up EKG with more than new ST depression and T wave inversion in inferior leads. ST depression noted in V3 and V4 with more pronounced ST depression and T wave inversion V5 and V6. Third EKG with ST depression T wave inversion in 1 aVL V4 to V6. And ST depression in inferior leads. When compared to old EKG from February 2018 ST T wave changes seems to be more pronounced in inferolateral leads. Review of Systems Const: Reports: fatigue and malaise; Denies: fever(s), chills or body aches Eyes: Denies: change in vision ENMT: Denies: throat pain or epistaxis Card: Reports: chest pain and dyspnea on exertion; Denies: orthopnea or leg pain with exertion Resp: Reports: dyspnea; Denies: productive cough, non-productive cough or wheezing GI: Denies: abdominal pain, hematochezia or melena : Denies: flank pain, urinary frequency or hematuria Musc: Reports: extremity pain; Denies: neck pain or extremity swelling Skin/Breast: Reports: lesions; Denies: rash or new lesions Neuro: Denies: headache(s) Psych: Denies: anxiety Endo: Denies: polyuria Kade/Lymph: Denies: easy bruising All/Imm: Denies: urticaria Meds/Allergies Home Medications and Allergies Home Medications Medication Instructions Recorded Confirmed Last Taken Type hydralazine 10 mg tablet 10 mg PO BID tab 07/21/19 05/18/20 Unknown History cholecalciferol (vitamin D3) 125 125 mcg PO DAILY #90 cap 01/01/20 05/18/20 Unknown Rx mcg (5,000 unit) capsule omeprazole 20 mg capsule,delayed 20 mg PO DAILY PRN 01/01/20 05/18/20 Unknown History release meclizine 25 mg tablet 25 mg PO .at bedtime #30 tab 03/10/20 05/18/20 Unknown Rx atorvastatin 20 mg tablet 20 mg PO DAILY #90 tab 04/13/20 05/18/20 Unknown Rx glipizide 10 mg tablet 10 mg PO BID #180 tab 04/13/20 05/18/20 Unknown Rx levothyroxine 88 mcg tablet 88 mcg PO DAILY #90 tab 04/13/20 05/18/20 Unknown Rx losartan 100 mg tablet 100 mg PO DAILY #90 tab 04/13/20 05/18/20 Unknown Rx metoprolol tartrate 50 mg tablet 50 mg PO BID #180 tab 04/13/20 05/18/20 Unknown Rx venlafaxine 37.5 mg 37.5 mg PO DAILY #90 cap 04/13/20 05/18/20 Unknown Rx capsule,extended release 24 hr amoxicillin 875 mg-potassium 1 tab PO BID 10 Days #20 tab 05/16/20 05/18/20 Unknown Rx clavulanate 125 mg tablet furosemide 20 mg tablet See Rx Instructions PO DAILY 30 05/16/20 05/18/20 Unknown Rx Days #33 tab nystatin 100,000 unit/gram topical 1 applic TOPICAL TID 30 Days #60 g 05/16/20 05/18/20 Unknown Rx powder aspirin 81 mg PO DAILY 05/18/20 05/18/20 Unknown History potassium chloride 10 meq PO DAILY 05/18/20 05/18/20 Unknown History Allergies Allergy/AdvReac Type Severity Reaction Status Date / Time adhesive tape Allergy Unknown ALGY-Rash Verified 05/17/20 09:38 codeine Allergy Unknown ALGY-Rash Verified 05/17/20 09:38 morphine Allergy Unknown Verified 05/17/20 09:38 acetaminophen AdvReac Unknown ADR-Nausea Verified 05/17/20 09:38 propoxyphene AdvReac Unknown ADR-Nausea Verified 05/17/20 09:38 Current Medications Current Medications Generic Name Dose Route Start Last Admin Trade Name Freq PRN Reason Stop Dose Admin Amlodipine Besylate 10 mg 05/18/20 09:00 05/18/20 10:00 Amlodipine 10 Mg Tablet PO 10 mg DAILY ALEJANDRA Administration Aspirin 81 mg 05/18/20 09:00 05/18/20 10:03 Aspirin 81 Mg Ec Tablet PO 81 mg DAILY ALEJANDRA Administration Atorvastatin Calcium 80 mg 05/18/20 09:00 05/18/20 10:02 Atorvastatin 40 Mg Tablet PO 80 mg DAILY ALEJANDRA Administration Hydralazine HCl 10 mg 05/18/20 09:00 05/18/20 10:02 Hydralazine 10 Mg Tablet PO 10 mg BID ALEJANDRA Administration Insulin Aspart 0 unit 05/18/20 08:00 05/18/20 10:00 Insulin Aspart 100 Unit/1 Ml SUBCUT 10 unit WM&BEDTIME ALEJANDRA Administration Protocol Levothyroxine Sodium 88 mcg 05/18/20 09:00 05/18/20 10:02 Levothyroxine 88 Mcg Tablet PO 88 mcg DAILY ALEJANDRA Administration Losartan Potassium 100 mg 05/18/20 09:00 05/18/20 10:02 Losartan 50 Mg Tablet PO 100 mg DAILY ALEJANDRA Administration PFSH Acute PFSH: Medical History Adult onset hypothyroidism CHF (congestive heart failure) Controlled diabetes mellitus with hyperglycemia GERD (gastroesophageal reflux disease) Gout Hearing loss right ear History of breast cancer HTN (hypertension) Non compliance w medication regimen XIOMARA (obstructive sleep apnea) PAD (peripheral artery disease) Status post angioplasty of lower extremities bilaterally as per the patient Urinary bladder disorder wears attends Vitamin D deficiency Surgical History S/P cataract extraction S/P hysterectomy S/P lumpectomy of breast Right Family History Grandmother Cancer BREAST Social History Smoking and tobacco status: never smoked Second hand smoke exposure: No Smoking risk assessment/counseling performed?: No Alcohol intake: never Desire information about alcohol rehabilitation?: No Counseling given: No Desire information about substance/drug rehabilitation?: No Counseling given: No Adopted: No Caregiver/support person: No Lives independently: Yes Household members: none Housing: House Marital status: / Number of children: 1 Number of grandchildren: 1 Highest education level completed: High School Graduate service: No Current occupational status: retired Pets and animals: Yes Pets & animals: dog(s) History of recent travel: No Current gender identity: Female Special sydnie needs: No Vitals/I&O/Wt Last Vital Signs Temp 98.9 F 05/18/20 08:00 Pulse 72 05/18/20 08:00 Resp 20 H 05/18/20 08:00 BP 185/73 05/18/20 10:02 Pulse Ox 97 05/18/20 04:00 05/17/20 05/18/20 05/18/20 22:59 06:59 14:59 Intake Total 200 / 200 Balance 200 / 200 Weight last 48 hrs Weight 164 lb Physical Exam Const: COMMON NORMALS: no acute distress, patient oriented x3 and alert GENERAL APPEARANCE: cooperative, comfortable, well kempt and well hydrated NUTRITIONAL APPEARANCE: obese HENMT: COMMON NORMALS: normocephalic, atraumatic, hearing grossly normal bilaterally, external ears normal and Normal external nose present HEAD & SCALP: normocephalic and atraumatic FACE & SINUS: normal facial exam NOSE: Normal external nose present; no Epistaxis present EXTERNAL EAR: Yes external ears normal MOUTH: lip normal and tongue normal; no drooling Eye: COMMON NORMALS: Equal, round and reactive pupils present, EOMs intact bilaterally, conjunctivae normal and no scleral icterus GENERAL EYE: appearance normal, both eyes and all related structures ALIGNMENT: Yes alignment normal PERIORBITAL: periorbital findings normal EYELID: eyelids normal CONJUNCTIVA: Yes conjunctivae normal SCLERA: sclerae normal PUPIL: Yes Equal, round and reactive pupils present Neck/C-Spine: COMMON NORMALS: no lymphadenopathy, supple, no JVD and Thyroid normal GENERAL: Yes normal visual inspection, Yes trachea midline and No Mass present (neck) THYROID: Thyroid normal CAROTIDS: Yes normal carotid upstroke CERVICAL SPINE: Yes cervical ROM normal Chest: COMMONS NORMALS: normal inspection of the chest and normal palpation of entire chest wall CHEST: Yes Symmetrical chest wall rise, No mass, No tenderness, No Surgical scars present (Chest) and No rash Resp: COMMON NORMALS: clear to auscultation bilaterally EFFORT & INSPECTION: Yes able to speak in complete sentences and No respiratory distress AUSCULTATION: clear to auscultation bilaterally, no crackles, no rales, no rhonchi, no wheezes and vesicular breath sounds Cardio: COMMON NORMALS: no JVD, regular rate, regular rhythm, S1 normal heart sound present, S2 normal heart sound present and Peripheral pulses 2+ throughout PALPATION: normal PMI RATE: regular rate RHYTHM: regular rhythm HEART SOUNDS: S1 normal heart sound present, S2 normal heart sound present, no gallops and Murmur heart sound present systolic Location: right sternal border Radiation: to the neck Intensity: III/ Characteristics: harsh Timing: early BRUITS: no carotid bruits and no femoral bruits PERIPHERAL PULSES: Peripheral pulses 2+ throughout, radial pulses present, posterior tibial pulses present and dorsalis pedis present GI: COMMON NORMALS: Soft to palpation AUSCULTATION: Yes normoactive bowel sounds PALPATION: Yes Soft to palpation, No Tenderness to palpation present (GI), No Guarding due to palpation present (GI), No Rigid due to palpation and No Ascites present Extremity: GENERAL: No calf tenderness, No clubbing, No cyanosis, Yes edema and No pallor Neuro: COMMON NORMALS: patient oriented x3, CN's II-XII intact bilaterally, no focal motor deficits, no sensory deficits noted and gait normal SENSORIUM/ORIENTATION: Yes alert Psych: COMMON NORMALS: Normal thought process present and speech normal APPEARANCE: Yes well kempt SPEECH: Yes normal speech MOOD & AFFECT: Yes euthymic mood THOUGHT PROCESS: Normal thought process present THOUGHT CONTENT: Yes Normal thought content present Skin: HAIR: normal NAILS: normal and no clubbing Data Imaging^: Other Imaging: I personally reviewed and interpreted this imaging study as follows: My impression: # TTE 02/2018 CONCLUSIONS Normal left ventricular size and systolic function, EF 62 %. No regional wall motion abnormalities. Features of the aortic valve sclerosis. Thickened aortic and mitral valves. Mildly increased left atrial size. There is no pericardial effusion. There are no intracardiac masses. Compared to the study from 04/29/2013, there may not be a significant change # TTE (05/18/20)\ CONCLUSIONS 1. Normal left ventricular cavity size. Moderate concentric left ventricular hypertrophy. Left ventricular ejection fraction is estimated at 55-60 %. There is possibly mild hypokinesis of entire anteroseptal, inferoseptal and anterior velez. Grade 2 diastolic dysfunction with mildly elevated filling pressure. 2. Mildly increased left atrial size. 3. Moderate aortic valve stenosis, peak velocity 2.9 m/s, peak gradient 32 mmHg, mean gradient 19.5 mmHg, AVELINO 1.3 cm squared (LVOT=20 mm). 4. Normal pulmonary artery pressure. 5. When compared to previous echocardiogram dated 03/04/2018, there is moderate aortic valve stenosis and possibly some regional wall motion abnormality as well. Radiologist's impression: Perpheral angiogram (09/2016) Peripheral Cath Diagnostic Procedure:Abdominal aortic angiography, Lower extremities' angiography Conclusions Peripheral Procedure Description Patient with symptoms classic for claudication. Noninvasive study and CT angiogram were abnormal suggesting popliteal disease and infrapopliteal disease. The patient is [place] grade I, category 3; Krish stage II. Procedure Summary Lower abdominal angiography and bilateral lower extremity angiography were performed from the right common femoral artery. There is very minimal aneurysmal dilatation of the distal abdominal aorta. Pelvic vessels are essentially normal bilaterally. The proximal aspect of the femoral vessels are also normal. The distal superficial femoral arteries bilaterally contain mild to moderate diffuse disease but no significant stenoses. The popliteal arteries are likewise mildly diffusely diseased. There is two-vessel runoff below both knees. Both posterior tibial arteries are occluded. Patient has small vessel disease especially below the knees. No intervention is possible or necessary. Recommendations Optimize medical management is the recommended treatment at this time. One could consider adding cilostazol if symptoms persist. Angiographic Findings Peripheral Arteries and Lesion Findings Aorta: Diffuse irregularity and Aneurismal.There is very minimal aneurysmal dilatation of the distal abdominal aorta. Common Iliac, Left: Normal. Common Iliac, Right: Normal. Internal Iliac, Left: Normal. Internal Iliac, Right: Normal. External Iliac, Left: Normal. External Iliac, Right: Normal. Femoral, Left: Normal. Femoral, Right: Normal. Common Femoral, Left: Normal. Common Femoral, Right: Normal. Profunda FA, Left: Diffuse irregularity. Superficial Femoral, Left: Diffuse irregularity. Popliteal, Left: Diffuse irregularity. Anterior Tibial, Left: Diffuse irregularity. Tibial Peroneal Trunk, Left: Diffuse irregularity. Posterior Tibial, Left: Chronic occlusion. Peroneal, Left: Diffuse irregularity. Profunda FA, Right: Normal. Superficial Femoral, Right: Diffuse irregularity.Mild to moderate diffuse irregularities especially distally Popliteal, Right: Diffuse irregularity. Anterior Tibial, Right: Diffuse irregularity. Tibial Peroneal Trunk, Right: Diffuse irregularity. Posterior Tibial, Right: Chronic occlusion. Peroneal, Right: Diffuse irregularity. A&P Assessment and plan (1) NSTEMI (non-ST elevated myocardial infarction): Aspirin and Lovenox as well as loading dose of Plavix. -Continue aspirin Plavix, statin (changed to high intensity statin on admission). I will increase her dose of metoprolol tartrate to 25 mg twice a day. She was on metoprolol tartrate 50 mg twice a day at home plan to uptitrate as tolerated. -Case was discussed with Dr. Conley and decision was made to proceed with coronary angiogram given her EKG changes and troponin elevation. -Risks and benefits were discussed with the patients. Alternate management options were discussed with the patient as well. Possible complications were reviewed with the patient as well. Plan is to proceed for the procedure at the earliest likely later this afternoon. Status: Acute (2) HTN (hypertension): Blood pressure elevated. Continue to monitor blood pressure and heart rate closely. Status: Chronic Qualifiers: Hypertension type: essential hypertension Qualified Code(s): I10 - Essential (primary) hypertension (3) CHF (congestive heart failure): Status: Acute Qualifiers: Heart failure chronicity: chronic Heart failure type: unspecified Qualified Code(s): I50.9 - Heart failure, unspecified (4) PAD (peripheral artery disease): Monophasic Doppler pulses right DP and PT and biphasic left DP and PT. Difficult to palpate pulses bilaterally. -Continue to manage medically. Status: Acute (5) Controlled diabetes mellitus with hyperglycemia: poorly controlled with last A1c of >10. Status: Chronic Qualifiers: Diabetes mellitus predatory animal exterminator insulin use: without retirement use Diabetes mellitus type: type 2 Qualified Code(s): E11.65 - Type 2 diabetes mellitus with hyperglycemia Additional A&P Information Moderate aortic stenosis Hypokalemia : Currently being replaced Mixed hyperlipidemia: Lipid panel from December 2019 with total cholesterol 214, triglyceride 217, LDL 130 and HDL 41. Agree with increasing Lipitor dose. Thank you for allowing me to participate in patient's care. Please feel free to call with questions or concerns. Consult Attestations Medical Necessity Statement: Patient needs hospital stay for management of non-ST elevation WA Time Spent in Patient Care: Greater than 35 minutes (>than 50% of time spent in counselling and/or direct pt care on unit). Coding Level of Care Code New Pt Acute [facility] Nurse for [facility]ley Patient Type New History Comprehensive Exam Comprehensive Medical Decision Making Moderate Complexity Diagnoses NSTEMI (non-ST elevated myocardial infarction) I21.4 HTN (hypertension) I10 Hypertension type: essential hypertension CHF (congestive heart failure) I50.9 Heart failure chronicity: chronic Heart failure type: unspecified PAD (peripheral artery disease) I73.9 Controlled diabetes mellitus with hyperglycemia E11.65 Diabetes mellitus retirement insulin use: without predatory animal exterminator use Diabetes mellitus type: type 2 Time Spent (min) 40
[2020-05-18 11:09] LABS: Glucose Point of Care 275 mg/dL (70-110)
[2020-05-18] MEDS: enoxaparin 80 mg/0.8 mL Syringe 70 MG SUBCUT (11:37)
[2020-05-18] MEDS: metoprolol tartrate 25 mg Tablet PO ×2 (11:38→21:50)
[2020-05-18] MEDS: clopidogrel 75 mg Tablet PO (11:39)
[2020-05-18] MEDS: sodium chloride 0.9% 1,000 ML 50 ML IV (11:40)
[2020-05-18] MEDS: lidocaine 1% 5 ML in potassium chloride premix 100 ML 25 ML IV (11:49)
[2020-05-18 12:48] LABS: SARS Covid-2 Antigen Negative (Negative)
--- NOTE | 2020-05-18 13:40 | P.PN_ITS ---
Subjective Subjective: Interval history: Overnight labs and H&P reviewed. Patient is planned for angiogram today. Medications: Reviewed: Yes Vitals/I&O/Wt Last Vital Signs Temp 98.0 F 05/18/20 11:41 Pulse 77 05/18/20 11:41 Resp 18 05/18/20 11:41 BP 185/73 05/18/20 10:02 Pulse Ox 93 05/18/20 11:41 05/17/20 05/18/20 05/18/20 22:59 06:59 14:59 Intake Total 200 / 200 Balance 200 / 200 Weight last 48 hrs Weight 74.389 kg Physical Exam Narrative: EXAM NARRATIVE: GEN: Awake, alert and oriented, no acute distress CVS: S1S2 N RS: CTA B/L Abd: Soft, nt/nd , bs+ INFORMATION SECURITY CONSULTANT: no focal neuro deficits Data : 05/18/20 04:33 05/18/20 04:33 A&P Assessment and plan (1) NSTEMI (non-ST elevated myocardial infarction): Status: Acute (2) Hyperglycemia: Status: Acute (3) Hypokalemia: Status: Acute Additional A&P Information NSTEMI Significant delta troponin with ischemic changes in inferior lateral leads Apprecaite cardiology recommendations, planned for cath today continue ASA, plavix, metoprolol, losartan Echo with Left ventricular ejection fraction is estimated at 55-60 %. There is possibly mild hypokinesis of entire anteroseptal, inferoseptal and anterior velez. Grade 2 diastolic dysfunction Hyperglycemia without DKA: insulin lantus 15 U and insulin sliding scale Hypokalemia : repleted overnight Congestive heart failure, diastolic : lasix on hold currently Hypothyroidism: continue levothyroxine 88mcg daily Full code Consistent carb cardiac diet DVT prophylaxis therapeutic Lovenox Attestations Medical Necessity Statement*: cardiac cath planned for today Coding Level of Care Code Acute Exchange Administrator for Chg Fwd Diagnoses NSTEMI (non-ST elevated myocardial infarction) I21.4 Hyperglycemia R73.9 Hypokalemia E87.6
--- NOTE | 2020-05-18 16:01 | W.PM.OPSUD ---
Surgery/Procedure H&P Update DATE OF PROCEDURE: May 18, 2020 DATE H&P PERFORMED: 05/18/20 H&P UPDATE INFORMATION: I have reviewed H&P completed within last 30 days, I have examined patient prior to procedure and No changes to prior documentation PREOP DIAGNOSIS: NSTEMI PRIMARY INDICATION FOR PROCEDURE: NSTEMI PLANNED PROCEDURE: Left heart/coronary angiography/ Possible percutaneous coronary intervention PATIENT REASSESSED PRIOR TO SEDATION, WITH NO CHANGE NOTED: Yes PHYSICAL EXAM: alert, oriented x 3 and clear to auscultation bilaterally AIRWAY EVAL/ANESTHESIA PLAN: normal airway, see other exam findings, ASA III, Risks, benefits & alternatives of sedation and/or procedure discussed and Patient agrees to continue as planned
--- NOTE | 2020-05-18 16:36 | PC.NURSE ---
Patient report called to Eugenia DAILEY in [facility]
--- NOTE | 2020-05-18 19:29 | PC.NURSE ---
PT IS RESTING IN BED. PT DENIES PAIN AT THIS TIME. PULSE IS PALPABLE DISTAL TO TR BAND. BOOK CRITIC NURSE REMOVING AIR FROM TR BAND. WILL CONTINUE TO MONITOR.
[2020-05-18 21:29] LABS: Glucose Point of Care 219 mg/dL (70-110)
[2020-05-18] MEDS: insulin glargine 100 units/1 mL 15 UNIT SUBCUT (21:47)
--- NOTE | 2020-05-18 22:59 | USCV_ITS ---
Raine Glover Age: 79 Gender: F : 1940 Exam Date: 05/18/2020 05:53 Ordering Phys: Anabela Nicole MD Technologist: Linda Carter Exam Location: [facility] [place] Indication: NSTEMI BP: 192 / 83 HR: 71 Rhythm: Sinus Technical Quality: Adequate MEASUREMENTS (Male / Female) Normal Values 2D ECHO LV Diastolic Diameter PLAX 4.7 cm 4.2 - 5.9 / 3.9 - 5.3 cm LV Systolic Diameter PLAX 2.7 cm LV Chamber Size 4.8 cm IVS Diastolic Thickness 1.8 cm 0.6 - 1.0 / 0.6 - 0.9 cm IVS Systolic Thickness 2.2 cm LVPW Diastolic Thickness 1.7 cm 0.6 - 1.0 / 0.6 - 0.9 cm LVPW Systolic Thickness 1.8 cm RV Chamber Size 3.2 cm LVOT Diameter 2.0 cm LV Ejection Fraction 2D Teich 74.0 % LV Ejection Fraction MOD 2C 42.8 % LV Ejection Fraction 2C AL 44.9 % LA Diameter 3.4 cm LA Width 3.6 cm LA Height 4.4 cm RA Width 3.7 cm RA Height 3.8 cm Aorta at Sinotubular Diameter 2.1 cm M-MODE LV Diastolic Diameter MM 5.3 cm 4.2 - 5.9 / 3.9 - 5.3 cm LV Systolic Diameter MM 3.4 cm LV Ejection Fraction MM Teich 65.2 % IVS Diastolic Thickness MM 1.4 cm 0.6 - 1.0 / 0.6 - 0.9 cm IVS Systolic Thickness MM 2.1 cm LVPW Diastolic Thickness MM 1.4 cm 0.6 - 1.0 / 0.6 - 0.9 cm LVPW Systolic Thickness MM 2.0 cm Aortic Annulus Diameter 2.6 cm LA Ao Ratio MM 1.3 MV E Point Septal Separation 0.9 cm DOPPLER AV Peak Velocity 285.0 cm/s LVOT Peak Velocity 116.0 cm/s AV Area Cont Eq vti 1.3 cm squared AV Area Cont Eq pk 1.3 cm squared MV Area PHT 3.7 cm squared Mitral E to A Ratio 0.8 MV E' Velocity 51.5 cm/s Mitral E to MV E' Ratio 11.7 Mitral E to LV E' Lateral Ratio 12.2 Mitral E to LV E' Septal Ratio 11.3 TR Peak Velocity 212.8 cm/s TR Peak Gradient 18.1 mmHg TR Mean Velocity 163.3 cm/s TR Mean Gradient 10.8 mmHg TR Velocity Time Integral 49.0 cm TV Peak E Velocity 74.0 cm/s Right Atrial Pressure 3.0 mmHg Pulmonary Artery Systolic Pressu 21.1 mmHg PV Peak Velocity 106.0 cm/s RV Acceleration Time 0.1 s RV Ejection Time 0.4 s RV AcT/ET 0.2 FINDINGS Left Ventricle Normal left ventricular cavity size. Increased left ventricular wall thickness. Moderate concentric left ventricular hypertrophy. Left ventricular ejection fraction is estimated at 55-60 %. There is possibly mild hypokinesis of anteroseptal, inferoseptal and anterior velez. Grade 2 diastolic dysfunction with mildly elevated filling pressure. Right Ventricle Normal right ventricular size and systolic function, RVSP 26 mmHg. Right Atrium Normal right atrial size. Right atrial pressure estimated at 3 mmHg. Left Atrium Mildly increased left atrial size. Mitral Valve Mild mitral annular calcification. Structurally normal mitral valve. No mitral valve stenosis. No mitral valve regurgitation. Aortic Valve Moderately thickened and calcified aortic valve. Moderate aortic valve stenosis, peak velocity 2.9 m/s, peak gradient 32 mmHg, mean gradient 19.5 mmHg, AVELINO 1.3 cm squared (LVOT=20 mm). Tricuspid Valve Structurally normal tricuspid valve. No tricuspid valve stenosis. Trace tricuspid valve regurgitation. Pulmonic Valve Pulmonic valve not well visualized. No pulmonary valve stenosis. Trace pulmonary valve regurgitation. Pericardium No pericardial effusion. Aorta Normal size aortic root and proximal ascending aorta. Normal- sized inferior vena cava with normal respiratory variation. CONCLUSIONS 1. Normal left ventricular cavity size. Moderate concentric left ventricular hypertrophy. Left ventricular ejection fraction is estimated at 55-60 %. There is possibly mild hypokinesis of entire anteroseptal, inferoseptal and anterior velez. Grade 2 diastolic dysfunction with mildly elevated filling pressure. 2. Mildly increased left atrial size. 3. Moderate aortic valve stenosis, peak velocity 2.9 m/s, peak gradient 32 mmHg, mean gradient 19.5 mmHg, AVELINO 1.3 cm squared (LVOT=20 mm). 4. Normal pulmonary artery pressure. 5. When compared to previous echocardiogram dated 03/04/2018, there is moderate aortic valve stenosis and possibly some regional wall motion abnormality as well. Meliza Chatman MD (Electronically Signed) Final Date: 18 May 2020 12:23 S
--- NOTE | 2020-05-18 23:14 | PC.NURSE ---
PT IS RESTING IN BED. RN NURSE REMOVED AIR OUT OF TR BAND. PRESSURE DRESSING IN PLACE. PT DENIES PAIN. PT AMBULATED TO BATHROOM. BED LINEN WERE REPLACED. WILL CONTINUE TO MONITOR.
[2020-05-19 05:50] VITALS: PULSE 70
[2020-05-19 06:37] LABS: Glucose Point of Care 156 mg/dL (70-110)
[2020-05-19 07:53] VITALS: BP 121/81; PULSE 83; RESP 22; TEMP 36; O2SAT 94
[2020-05-19] MEDS: aspirin 81 mg EC Tablet PO (09:49)
[2020-05-19] MEDS: levothyroxine 88 mcg Tablet PO (09:49)
[2020-05-19] MEDS: amlodipine 10 mg Tablet PO (09:49)
[2020-05-19 09:50] VITALS: BP 121/81
[2020-05-19] MEDS: losartan 50 mg Tablet 100 MG PO (09:50)
[2020-05-19] MEDS: clopidogrel 75 mg Tablet PO (09:50)
[2020-05-19] MEDS: atorvastatin 40 mg Tablet 80 MG PO (09:50)
[2020-05-19] MEDS: hyDRALAzine 10 mg Tablet PO (09:50)
[2020-05-19] MEDS: metoprolol tartrate 25 mg Tablet PO (09:55)
--- NOTE | 2020-05-19 09:57 | P.PN_ITS ---
Subjective Subjective: Interval history: Patient is doing well. She denies any chest pain, shortness of breath or palpitations. 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 There is subtotal occlusion of ostial RCA. Proximal LCx has moderate 50% stenosis (FFR non ischemic). Mid LAD has a moderate 50-60%. 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 Wire cross the ostial RCA stenosis but wire could not cross the distal RCA total occlusion and as patient is chest pain free without any significant wall motion abnormalities, we aborted further attempts. Vitals/I&O/Wt Last Vital Signs Temp 96.8 F L 05/19/20 07:53 Pulse 83 05/19/20 07:53 Resp 22 H 05/19/20 07:53 BP 121/81 05/19/20 09:50 Pulse Ox 94 05/19/20 07:53 05/18/20 05/19/20 05/19/20 22:59 06:59 14:59 Intake Total 120 / 120 956.667 / 1076.667 360 / 360 Output Total 150 / 150 Balance -30 / -30 956.667 / 926.667 360 / 360 Weight last 48 hrs Weight 164 lb Physical Exam Const: COMMON NORMALS: no acute distress, patient oriented x3 and alert GENERAL APPEARANCE: cooperative, comfortable, well kempt and well hydrated NUTRITIONAL APPEARANCE: obese HENMT: COMMON NORMALS: normocephalic, atraumatic, hearing grossly normal bilaterally, external ears normal and Normal external nose present HEAD & SCALP: normocephalic and atraumatic FACE & SINUS: normal facial exam NOSE: Normal external nose present; no Epistaxis present EXTERNAL EAR: Yes external ears normal MOUTH: lip normal and tongue normal; no drooling Eye: COMMON NORMALS: Equal, round and reactive pupils present, EOMs intact bilaterally, conjunctivae normal and no scleral icterus GENERAL EYE: appearance normal, both eyes and all related structures ALIGNMENT: Yes alignment normal PERIORBITAL: periorbital findings normal EYELID: eyelids normal CONJUNCTIVA: Yes conjunctivae normal SCLERA: sclerae normal PUPIL: Yes Equal, round and reactive pupils present Neck/C-Spine: COMMON NORMALS: no lymphadenopathy, supple, no JVD and Thyroid normal GENERAL: Yes normal visual inspection, Yes trachea midline and No Mass present (neck) THYROID: Thyroid normal CAROTIDS: Yes normal carotid upstroke CERVICAL SPINE: Yes cervical ROM normal Chest: COMMONS NORMALS: normal inspection of the chest and normal palpation of entire chest wall CHEST: Yes Symmetrical chest wall rise, No mass, No tenderness, No Surgical scars present (Chest) and No rash Resp: COMMON NORMALS: clear to auscultation bilaterally EFFORT & INSPECTION: Yes able to speak in complete sentences and No respiratory distress AUSCULTATION: clear to auscultation bilaterally, no crackles, no rales, no rhonchi, no wheezes and vesicular breath sounds Cardio: COMMON NORMALS: no JVD, regular rate, regular rhythm, S1 normal heart sound present, S2 normal heart sound present and Peripheral pulses 2+ throughout PALPATION: normal PMI RATE: regular rate RHYTHM: regular rhythm HEART SOUNDS: S1 normal heart sound present, S2 normal heart sound present, no gallops and Murmur heart sound present systolic Location: right sternal border Radiation: to the neck Intensity: III/ Characteristics: harsh Timing: early BRUITS: no carotid bruits and no femoral bruits PERIPHERAL PULSES: Peripheral pulses 2+ throughout, radial pulses present, posterior tibial pulses present and dorsalis pedis present GI: COMMON NORMALS: Soft to palpation AUSCULTATION: Yes normoactive bowel sounds PALPATION: Yes Soft to palpation, No Tenderness to palpation present (GI), No Guarding due to palpation present (GI), No Rigid due to palpation and No Ascites present Extremity: GENERAL: No calf tenderness, No clubbing, No cyanosis, Yes edema and No pallor Neuro: COMMON NORMALS: patient oriented x3, CN's II-XII intact bilaterally, no focal motor deficits, no sensory deficits noted and gait normal SENSORIUM/ORIENTATION: Yes alert Psych: COMMON NORMALS: Normal thought process present and speech normal APPEARANCE: Yes well kempt SPEECH: Yes normal speech MOOD & AFFECT: Yes euthymic mood THOUGHT PROCESS: Normal thought process present THOUGHT CONTENT: Yes Normal thought content present Skin: HAIR: normal NAILS: normal and no clubbing Data : 05/18/20 04:33 05/18/20 04:33 A&P Assessment and plan (1) NSTEMI (non-ST elevated myocardial infarction): Patient has GUM ROLLING MACHINE TENDER of the RCA, attempt for PCI unsuccessful. Patient had FFR of moderate LCx stenosis that did not show ischemia. In case patient continues having chest pain as outpatient, will consider stress test to rule out ischemia in the LAD territory which also has a moderate stenosis and proceed with PCI if abnormal. Continue Aspirin and Plavix High intensity statin/metoprolol. Add Imdur EF is preserved. Patient is OK to be discharged from cardiology standpoint. Follow Up with cardiology office in 4 weeks. Status: Acute (2) HTN (hypertension): Blood pressure elevated. Continue to monitor blood pressure and heart rate closely. Status: Chronic Qualifiers: Hypertension type: essential hypertension Qualified Code(s): I10 - Essential (primary) hypertension (3) CHF (congestive heart failure): Status: Acute Qualifiers: Heart failure type: unspecified Heart failure chronicity: chronic Qualified Code(s): I50.9 - Heart failure, unspecified (4) PAD (peripheral artery disease): Monophasic Doppler pulses right DP and PT and biphasic left DP and PT. Difficult to palpate pulses bilaterally. -Continue to manage medically. Status: Acute (5) Controlled diabetes mellitus with hyperglycemia: poorly controlled with last A1c of >10. Status: Chronic Qualifiers: Diabetes mellitus type: type 2 Diabetes mellitus alf insulin use: without terminal carman use Qualified Code(s): E11.65 - Type 2 diabetes mellitus with hyperglycemia Additional A&P Information Moderate aortic stenosis Hypokalemia : Currently being replaced Mixed hyperlipidemia: Lipid panel from December 2019 with total cholesterol 214, triglyceride 217, LDL 130 and HDL 41. Agree with increasing Lipitor dose. Thank you for allowing me to participate in patient's care. Please feel free to call with questions or concerns. Attestations Medical Necessity Statement*: Care expected to cross 2 midnights. 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
[2020-05-19 11:46] VITALS: BP 169/72; PULSE 74; RESP 18; TEMP 36; O2SAT 96
[2020-05-19 11:56] LABS: Glucose Point of Care 314 mg/dL (70-110)
[2020-05-19 12:43] VITALS: BP 169/72; PULSE 74; RESP 18; TEMP 36; O2SAT 96
[2020-05-19 15:55] VITALS: BP 166/83; PULSE 75; RESP 18; TEMP 36.4; O2SAT 98
--- NOTE | 2020-05-28 16:40 | P.DS_ITS ---
Discharge Providers Date of Admission: 05/17/20 19:48 Date of Discharge: 05/19/202020 Attending Provider at Admission: Anabela Nicole MD Attending Provider at Discharge: Padma Wasserman MD Primary Care Provider: ALEJANDRO Vera Diagnoses at Discharge Discharge Diagnosis (1) NSTEMI (non-ST elevated myocardial infarction): Status: Acute (2) HTN (hypertension): Status: Chronic Qualifiers: Hypertension type: essential hypertension Qualified Code(s): I10 - Essential (primary) hypertension (3) CHF (congestive heart failure): Status: Acute Qualifiers: Heart failure type: unspecified Heart failure chronicity: chronic Qualified Code(s): I50.9 - Heart failure, unspecified (4) PAD (peripheral artery disease): Status: Acute Permanent problem details: Status post angioplasty of lower extremities bilaterally as per the patient (5) Controlled diabetes mellitus with hyperglycemia: Status: Chronic Qualifiers: Diabetes mellitus type: type 2 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 Echo with Left ventricular ejection fraction is estimated at 55-60 %. There is possibly mild hypokinesis of entire anteroseptal, inferoseptal and anterior velez. Grade 2 diastolic dysfunction. 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 There is subtotal occlusion of ostial RCA. Proximal LCx has moderate 50% stenosis (FFR non ischemic). Mid LAD has a moderate 50-60%. RCA HYDROPULPER PCI was attempted. Wire cross the ostial RCA stenosis but wire could not cross the distal RCA total occlusion and as patient is chest pain free without any significant wall motion abnormalities, further attempts were aborted. She is being medically managed. She was discharged on ASA, Plavix, b blockers and statins. 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: no focal neuro deficits Discharge Data 2 Data Completed and Pending: Completed Studies During Hospitalization Category Date Time Status CT angio chest PE protcl [id number] Urge nt Cat Scan 05/17/20 18:03 Completed XR chest 1V jordan ble [id number] Stat Exams 05/17/20 16:06 Completed CV echo complete* [id number] Routine Ultrasound 05/18/20 22:59 Completed Pending at discharge Category Date Time Status COMB WINDER request for service Routin e Exams 05/18/20 10:23 Taken Vitals: Last Vital Signs Temp 97.6 F 05/19/20 15:55 Pulse 75 05/19/20 15:55 Resp 18 05/19/20 15:55 BP 166/83 05/19/20 15:55 Pulse Ox 98 05/19/20 15:55 Discharge Plan Discharge Patient Disposition: Home Condition: Stable Prescriptions: New atorvastatin 40 mg Tablet 80 mg PO DAILY 30 Days Qty: 30 RF: 0 clopidogrel 75 mg Tablet 75 mg PO DAILY 30 Days Qty: 30 RF: 0 isosorbide mononitrate 30 mg tablet extended release 24 hr 15 mg PO DAILY 30 Days Qty: 30 RF: 0 nitroglycerin 0.4 mg Tablet, Sublingual 0.4 mg sublingual Q5M PRN (Reason: Chest Pain) 30 Days Qty: 30 RF: 0 Continued omeprazole 20 mg capsule,delayed release(DR/EC) 20 mg PO DAILY PRN (Reason: Heartburn) RF: 0 cholecalciferol (vitamin D3) 125 mcg (5,000 unit) capsule 125 mcg PO DAILY Qty: 90 RF: 0 nystatin 100,000 unit/gram powder 1 applic topical TID 30 Days Qty: 60 RF: 5 meclizine 25 mg tablet 25 mg PO .at bedtime Qty: 30 RF: 0 aspirin 81 mg Tablet,Chewable 81 mg PO DAILY RF: 0 Changed metoprolol tartrate 50 mg tablet 25 mg PO BID Qty: 180 RF: 0 Discontinued amoxicillin-pot clavulanate [Augmentin] 875-125 mg tablet 1 tab PO BID 10 Days Qty: 20 RF: 0 hydralazine 10 mg tablet 10 mg PO BID RF: 0 atorvastatin [Lipitor] 20 mg tablet 20 mg PO DAILY Qty: 90 RF: 0 No Action venlafaxine 37.5 mg capsule,extended release 24hr 37.5 mg PO DAILY Qty: 90 RF: 0 potassium chloride 10 mEq tablet,ER particles/crystals 10 meq PO DAILY Qty: 90 RF: 0 losartan 100 mg tablet 100 mg PO DAILY Qty: 90 RF: 0 levothyroxine 88 mcg tablet 88 mcg PO DAILY Qty: 90 RF: 0 glipizide 10 mg tablet 10 mg PO BID Qty: 180 RF: 0 furosemide 20 mg tablet See Rx Instructions PO DAILY 90 Days Qty: 100 RF: 0 hydralazine 10 mg tablet 10 mg PO BID Qty: 180 RF: 0 Discharge Orders: Discharge Order (Routine); Ordered 05/19/20 Ordered By: Padma Wasserman Referrals: Compa Conley M.D [Physician] - 1 month (YOU WILL HAVE AN APPOINTMENT WITH DR. CONLEY ON SaturdayJUNE 15 AT 2:00 PM AT THE [facility]. IF YOU HAVE ANY QUESTIONS PLEASE CALL [phone]. ) Alley Richards FNP [Nurse Practitioner] - 7-10 days (YOU WILL HAVE AN APPOINTMENT WITH ANKUR VALIENTE AT THE [facility] ON SaturdayMAY 25 AT 1:45 PM. ) Discharge Diet: Usual diet, Cardiac and Diabetic Discharge Activity: Resume usual activity Patient Instructions: Amlodipine (By mouth), Nitroglycerin, Rapid Release (By mouth), Isosorbide Mononitrate (By mouth), Atorvastatin (By mouth), Clopidogrel (By mouth), Left Heart Catheterization (DC) Discharge Attestations Time Spent in Discharge Care*: greater than 30 min Specific Discharge Activities: educating patient, documenting/other paperwork and evaluating patient/reviewing data Quality Metrics Clinical Quality Measures During this hospital stay, did patient experience: AMI Clinical Trial Participant: No Contraindication to aspirin (AMI): Aspirin given Contraindication to statin: Statin prescribed Contraindication to PCI: PCI performed Coding Level of Care Code Acute 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
== END 2020-05-19 16:25 | disposition home or self-care (01) | DRG 281 ==
LOC: ER 16:37 → MEDSURG 22:57 → CSU 05-18 17:54
PROVIDERS: Internal Medicine; Internal Medicine Cardiovascular Disease; Admitting Provider Internal Medicine; Emergency Provider Family Medicine; PCP Nurse Practitioner; Visit Provider Student in an Organized Health Care Education/Training Program
PROC: B2111ZZ Fluoroscopy of Multiple Coronary Arteries using Low Osmolar Contrast (ICD-10-PCS; principal; 2020-05-18 15:00)
DX: I21.4 Non-ST elevation (NSTEMI) myocardial infarction (principal); I50.32 Chronic diastolic (congestive) heart failure; I25.10 Atherosclerotic heart disease of native coronary artery without angina pectoris; I73.9 Peripheral vascular disease, unspecified; Z98.62 Peripheral vascular angioplasty status; I11.0 Hypertensive heart disease with heart failure; E03.9 Hypothyroidism, unspecified; E11.65 Type 2 diabetes mellitus with hyperglycemia; K21.9 Gastro-esophageal reflux disease without esophagitis; M10.9 Gout, unspecified; H91.91 Unspecified hearing loss, right ear; Z85.3 Personal history of malignant neoplasm of breast; G47.33 Obstructive sleep apnea (adult) (pediatric); E55.9 Vitamin D deficiency, unspecified; E87.6 Hypokalemia; Z92.3 Personal history of irradiation; Z92.23 Personal history of estrogen therapy; M19.90 Unspecified osteoarthritis, unspecified site; I35.0 Nonrheumatic aortic (valve) stenosis; E78.2 Mixed hyperlipidemia; Z79.82 Long term (current) use of aspirin
CPT/HCPCS: 12345; 36415; 36416; 71045; 71275; 80048; 80053; 81001; 82962; 83735; 83880; 84484; 85025; 85378; 85610; 87426; 93005; 93306; 93454; 93571; 96372; 99283; C1769; C1887; C1894; J0153; J0360; J1644; J1650; J1815 ×2; J2250; J3010; J3480; J3490; J7030; Q9967

== ENCOUNTER → 2020-05-27 10:35 | Outpatient (BNVA) | payer MEDICARE, OTHER, SELFPAY | PROVIDERS: PCP Nurse Practitioner; Visit Provider Nurse Practitioner | DX: E11.65 Type 2 diabetes mellitus with hyperglycemia (principal); I50.9 Heart failure, unspecified; F41.1 Generalized anxiety disorder; I10 Essential (primary) hypertension; E03.8 Other specified hypothyroidism | CPT/HCPCS: 80053; 83036 ==

== ENCOUNTER → 2020-06-06 10:08 | Outpatient (BNVA) | payer MEDICARE, OTHER, SELFPAY | PROVIDERS: PCP Nurse Practitioner; Visit Provider Nurse Practitioner | DX: E87.6 Hypokalemia (principal) | CPT/HCPCS: 80048 ==

== ENCOUNTER → 2020-07-15 10:58 | Outpatient (BNVA) | payer MEDICARE, OTHER, SELFPAY | PROVIDERS: PCP Nurse Practitioner; Visit Provider Nurse Practitioner | DX: E87.6 Hypokalemia (principal); E11.65 Type 2 diabetes mellitus with hyperglycemia; E03.8 Other specified hypothyroidism | CPT/HCPCS: 80048; 80061; 83036; 84443 ==

== ENCOUNTER → 2020-08-25 10:09 | Outpatient (BNVA) | payer MEDICARE, OTHER, SELFPAY | PROVIDERS: PCP Nurse Practitioner; Visit Provider Nurse Practitioner | DX: E87.6 Hypokalemia (principal) | CPT/HCPCS: 80048 ==

== ENCOUNTER → 2020-10-11 09:24 | Outpatient (BNVA) | payer MEDICARE, OTHER, SELFPAY | PROVIDERS: PCP Nurse Practitioner; Visit Provider Nurse Practitioner | DX: E11.65 Type 2 diabetes mellitus with hyperglycemia (principal); I10 Essential (primary) hypertension; I50.9 Heart failure, unspecified; E03.8 Other specified hypothyroidism; F41.1 Generalized anxiety disorder | CPT/HCPCS: 71046 ==

== ENCOUNTER → 2020-10-12 09:27 | Outpatient (BNVA) | payer MEDICARE, OTHER, SELFPAY | PROVIDERS: PCP Nurse Practitioner; Visit Provider Nurse Practitioner | DX: E11.65 Type 2 diabetes mellitus with hyperglycemia (principal); E03.8 Other specified hypothyroidism; E55.9 Vitamin D deficiency, unspecified; I10 Essential (primary) hypertension | CPT/HCPCS: 80053; 82043; 83036; 85025 ==

== ENCOUNTER 2020-10-26 09:25 | Outpatient (CLI) | payer MEDICARE, OTHER, SELFPAY ==
--- NOTE | 2020-10-26 09:32 | MM_ITS ---
WS: [id number] BILATERAL DIGITAL DIAGNOSTIC MAMMOGRAM MAMMOGRAPHY WITH CAD CLINICAL INFORMATION: HX OF BREAST CA COMPARISON: October 26, 2019 TECHNIQUE: Bilateral CC, MLO, and ML views. FINDINGS: Scattered fibroglandular densities bilaterally. Punctate and lucent centered calcifications. Vascular calcification. Clustered calcifications. Mild volume loss right breast from prior lumpectomy. Increa sed benign appearing punctate calcifications upper outer left breast. No suspicious focal mass, asymmetry, calcifications, or architectural distortion. No evidence of sharmin gnancy. MM/[place] [id number] IMPRESSION: BI-RADS: 2-Benign FOLLOW UP: 1 Year Follow-up Recommend return to annual diagnostic mammography.
[2020-10-26 10:26] LABS: Basophils # 0.1 10^3/uL (0.0-0.1); Basophils % 0.8 %; Eosinophils # 0.3 10^3/uL (0.0-0.8); Eosinophils % 3.6 %; Hematocrit 48.7 % (37.0-47.0); Hemoglobin 15.7 g/dL (11.5-15.3); Lymphocytes # 2.6 10^3/uL (0.8-4.8); Lymphocytes % 34.4 %; Mean Corpuscular HGB Conc 32.2 g/dL (30.0-36.0); Mean Corpuscular Hemoglobin 26.9 pg (28.0-34.0); Mean Corpuscular Volume 83.5 fL (81-99); Mean Platelet Volume 10.9 fL (7.4-10.4); Monocytes # 0.6 10^3/uL (0.2-0.9); Monocytes % 7.4 %; Neutrophils # 3.98 10^3/uL (1.8-7.7); Neutrophils % 53.5 %; Nucleated Red Blood Cells % 0 %; Platelet Count 194 10^3/cmm (130-400); Red Blood Count 5.83 10^6/uL (4.1-5.3); Red Cell Distribution Width 14.9 % (12.1-15.1); White Blood Count 7.4 10^3/uL (4.0-10.0)
[2020-10-26 10:49] LABS: Alanine Aminotransferase 11 U/L (0-33); Alkaline Phosphatase 84 IU/L (35-105); Anion Gap 12.6 (5-19); Aspartate Amino Transferase 18 U/L (0-32); Blood Urea Nitrogen 11 mg/dL (8-23); Calcium 9.5 mg/dL (8.5-10.5); Carbon Dioxide 29 mmol/L (22-29); Chloride 97 mmol/L (98-107); Globulin 3.6 g/dL (1.3-4.6); Glucose 258 mg/dL (65-115); Osmolality Calculated 286 mOsm/kg (285-295); Potassium 4.6 mmol/L (3.5-5.1); Sodium 134 mmol/L (136-145); Total Bilirubin 0.4 mg/dL (0.15-1.2); Total Protein 7.6 g/dL (6.6-8.7)
--- NOTE | 2020-10-28 15:42 | ONC FU_ITS ---
Dr. 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 She first became aware of a right breast lump in the summer of 2011. On 01/10/2012 her mammogram showed a 2.5 cm right breast mass at 12 o'clock position corresponding to 1.76 cm on ultrasound. On 02/08/2012 she underwent an excisional biopsy. The pathology revealed a 2.2 cm poorly differentiated invasive ductal carcinoma with irregular extensions into the stromal connective tissue. Microscopically, an invasive carcinoma came within 0.5 mm of the posterior margin. The associated DCIS was less than 1 mm from the inferior margin. Prognostic markers included ER positive at 96%and MD positive at99%. HER-2/jennifer was nonamplified, 1+ by IHC, FISH at 1.0. On 03/03/2012 she underwent re-excision of the breast and axillary sentinel lymph node biopsy. Surgical pathology showed a residual microscopic focus of DCIS measuring 2 mm, with negative margins. Two sentinel lymph nodes were negative for metastatic disease. Her chest x-ray on 04/08/12 had no evidence of metastatic disease. Her Oncotype DX score was 10, low risk, corresponding to 7% chance of distant recurrence following hormonal treatment. She completed 60.4 Gy of adjuvant radiation therapy on 06/12/2012. Adjuvant hormonal therapy with anastrozole 1 mg daily started on 08/14/2012. DEXA scan on 08/21/2012 showed severe osteopenia, T score -2.1 in lumbar spine. I had seen her for a followup visit on 02/13/2017. At that point her joint pain seemed to be getting worse, and I did have her stop the anastrozole. As of her follow-up visit in July 2017 she was feeling better, though at that point she had also stopped gabapentin. As she had completed 4-1/2 years of treatment, I opted not to attempt any further adjuvant hormonal therapy. Her other medical illnesses include hypertension, type II diabetes, GERD, hypothyroidism, degenerative arthritis, gout, obstructive sleep apnea, and chronic anxiety. In February 2018 she was admitted to the hospital with diastolic congestive heart failure. Her echocardiogram at that point showed normal left ventricular ejection fraction at 62%. There was no significant valvular disease reported. She also has peripheral arterial disease. Her surgical history also includes hysterectomy bilateral salpingo-oophorectomy in 1991. She is a nonsmoker. She is seen for a follow-up visit. She says her energy is not good and that she has been sleeping more. She is still doing light housework. ECOG score is 1. She has good appetite. She admits to drinking too many Pepsi's. In fact, she describes her self as a Pepsi-holic. She has not been checking her blood sugars. She does not have fever, night sweats, or hot flashes. She has just occasional cough. She is not having shortness of breath or chest pain, but she says she had a mini heart attack in April. She has no GI complaints other than constipation, which is chronic. She has urinary frequency and some bladder incontinence. She has chronic joint pain, which she attributes to gouty arthritis. She does not complain of headache. She says she is always dizzy/off balance. She complains that her left hand and left foot are always cold. She sometimes has depression. She has been taking venlafaxine 37.5 mg twice daily. Medications: Aspirin 1 (81 mg) Tablet Oral daily, Cholecalciferol 1 (2000 Units) Capsule Oral daily, Furosemide 1 (20 mg) Tablet Oral daily PRN, GlipiZIDE 1 (10 mg) Tablet SR 24 HR Oral b.i.d., hydrALAZINE HCl 1 Tablet (of 10 mg) Oral t.i.d., Ibuprofen 200 mg - Take 2 - 3 Tablet Oral at bedtime, Levothroid 1 (88 mcg) Tablet Oral daily, Losartan Potassium 1 Tablet (of 25 mg) Oral daily, Metoprolol Tartrate 1 (50 mg) Tablet Oral b.i.d., Micro-K 1 (10 meq) Capsule, controlled release Oral daily PRN, Valsartan-Hydrochlorothiazide 1 (320-12.5 mg) Tablet Oral daily, Venlafaxine HCl ER 1 Tablet (of 37.5 mg) Tablet SR 24 HR Oral daily Allergies: Adhesive, Narcotics, and Steri Strips. Vital Signs: Performed on Oct 26, 2020 10:50 Height - 59.00 in Weight - 151 lbs (LOW) BSA - 1.64 sq.m BMI - 30.50 (HIGH) Temperature - 98.1 F (LOW) Pulse - 70 /min Respiration - 18 /min BP - 224/82 mm(hg) (HIGH) O2 Sat - 98 % Pain - 3 Physical Examination: Constitutional - She looks pretty good generally, Eyes - Sclerae nonicteric. Conjunctivae clear, ENMT - No lesions noted in the oral cavity, Hematologic/Lymphatic - No cervical or clavicular adenopathy, Respiratory - Lungs sound clear, Cardiovascular - Heart rhythm is regular. There is a II/ systolic murmur. There is no gallop or rub noted, Breasts - There is mild induration at the lumpectomy site in the right breast. There are no breast masses noted. There is no axillary adenopathy, Abdomen - Moderately distended. Liver and spleen are not enlarged. There is no abdominal mass or ascites noted and there is no inguinal adenopathy, Extremities - Slight edema, which appears chronic, Integumentary - There is a small actinic lesion on the left cheek, Neurologic - No focal neurologic deficits noted. Lab/Imaging: Test performed on Oct 26, 2020 10:05 Sodium 134 mmol/L Potassium 4.6 mmol/L Chloride 97 mmol/L CO2 29 mmol/L Anion Gap 12.6 BUN 11 mg/dL Creatinine 0.7 mg/dL Cr Clearance (Est) 71.62 mL/min Glucose 258 mg/dL Osmolality - Calculated 286 mOsm/kg Calcium 9.5 mg/dL Protein, Total 7.6 g/dL Albumin 4.0 g/dL Globulin 3.6 g/dL Bilirubin, Total 0.4 mg/dL ALT (SGPT) 11 U/L AST (SGOT) 18 U/L Alkaline Phosphatase 84 IU/L WBC 7.4 10 3/uL RBC 5.83 10 6/uL HGB 15.7 g/dL HCT 48.7 % MCV 83.5 fL MCH 26.9 pg MCHC 32.2 g/dL RDW 14.9 % Platelet Count 194 10 3/cmm MPV 10.9 fL Neutrophils 3.98 10 3/uL Lymphocytes 2.6 10 3/uL Monocytes 0.6 10 3/uL Eosinophils 0.3 10 3/uL Basophils 0.1 10 3/uL Neutrophil % 53.5 % Lymphocyte % 34.4 % Monocyte % 7.4 % Eosinophil % 3.6 % Basophils % 0.8 % NRBC % 0 % Problem List: 1. Grade 3 invasive ductal carcinoma of the right breast, stage IB, ER/MD positive and HER-2/jennifer nonamplified. Her treatment included excisional biopsy in January 2012 followed by reexcision lumpectomy/axillary sentinel lymph node biopsy in February 2012. Her Oncotype DX score was 10, low risk. Adjuvant chemotherapy was not recommended. 2. Hypertension. 3. Type II diabetes. 4. Diastolic congestive heart failure. 5. Peripheral arterial disease. 6. Hypothyroidism. 7. GERD. 8. Degenerative arthritis. 9. Gout. 10. Obstructive sleep apnea. 11. Osteoporosis. 12. Anxiety/depression. 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 Her treatment included excisional biopsy in January 2012 followed by reexcision lumpectomy/axillary sentinel lymph node biopsy in February 2012. Her Oncotype DX score was 10, low risk, and adjuvant chemotherapy was not recommended. She was given radiation to the right breast, completed on 06/12/2012 to a total dose of 6040 cGy. Adjuvant hormonal therapy with anastrozole 1 mg daily began on 08/14/2012. As of her followup visit in January 2017 she was having significant fatigue and her musculoskeletal pain seemed to be getting worse. I did have her stop the anastrozole. As of her follow-up visit in July 2017 she was feeling better, though at that point she had also stopped taking gabapentin. As she had completed 4 years of treatment, I opted not to attempt any further adjuvant hormonal therapy. She has since then remained on expectant management. She has some ongoing issues related to her underlying cardiovascular disease. Her hypertension and diabetes are not well controlled, but that is largely due to poor compliance. Thus far there has been no evidence of recurrence of her breast cancer. She continues on expectant management. Her surveillance should include bilateral diagnostic mammogram yearly. She is advised now to just continue her regular follow-up at [facility]. I will plan to see her again only as needed. Signed By: Humphrey Zuniga M.D. <<Signature on File>>
== END 2020-10-26 09:26 | disposition home or self-care (01) ==
LOC: ONCMED 09:30
PROVIDERS: PCP Nurse Practitioner; Visit Provider Internal Medicine Medical Oncology
DX: Z08 Encounter for follow-up examination after completed treatment for malignant neoplasm (principal); Z85.3 Personal history of malignant neoplasm of breast; Z92.3 Personal history of irradiation; Z79.899 Other long term (current) drug therapy; E11.9 Type 2 diabetes mellitus without complications; I10 Essential (primary) hypertension; I50.30 Unspecified diastolic (congestive) heart failure; I70.209 Unspecified atherosclerosis of native arteries of extremities, unspecified extremity; E03.9 Hypothyroidism, unspecified; K21.9 Gastro-esophageal reflux disease without esophagitis; M19.90 Unspecified osteoarthritis, unspecified site; M10.9 Gout, unspecified; G47.33 Obstructive sleep apnea (adult) (pediatric); M81.0 Age-related osteoporosis without current pathological fracture; F41.9 Anxiety disorder, unspecified; F32.9 Major depressive disorder, single episode, unspecified
CPT/HCPCS: 36415; 77066; 80053; 85025; 99214

== ENCOUNTER → 2021-03-21 09:48 | Outpatient (BNVA) | payer MEDICARE, OTHER, SELFPAY | PROVIDERS: PCP Nurse Practitioner; Visit Provider Nurse Practitioner | DX: E55.9 Vitamin D deficiency, unspecified (principal); E11.65 Type 2 diabetes mellitus with hyperglycemia | CPT/HCPCS: 80053; 80061; 82306; 82607; 83036; 84443; 85025 ==

== ENCOUNTER 2021-05-31 22:28 | Inpatient (IN) | payer MEDICARE, OTHER, SELFPAY ==
[2021-05-31 22:37] VITALS: BP 161/81; PULSE 86; RESP 18; TEMP 36.8; O2SAT 95; BMI 29.5
--- NOTE | 2021-05-31 22:42 | W.ED.NEUROSD ---
HPI - Neuro Symptoms/Deficit General: Chief Complaint: Altered Mental Status Stated Complaint: Possible Stroke Time Seen by Provider: 05/31/21 22:41 Source: family and old records reviewed Limitations: altered mental status History of Present Illness: HPI Narrative: Ms. Glover is a 80-year-old lady with history of hypertension, hyperlipidemia, CHF, history of CO, diabetes, hypothyroidism, and reported dementia who presents to the emergency department due to confusion. Apparently the patient lives at home however does have people check on her. Approximately 2 days ago she was found on the ground at the morning after spending an unknown amount of time on the ground though likely less than 1 day. She denies pain associated with this but cannot provide clinical history regarding surrounding events. She was found today to be more confused after someone checked on her at the grandson's request. She does have some confusion at baseline however this is worse. The patient is unsure regarding her current symptoms. Denies other changes in health. No other specific exacerbating relieving factors identified. History limited by mental status. Onset (ago): day(s) Timing confirmed by: family member Severity: moderate Associated symptoms: Reports weakness Review of Systems General: Reports: 10 or more systems reviewed and unremarkable except in HPI and below and Other (limited history secondary to mental status, negative as responded) [facility] PFSH: Medical History Adult onset hypothyroidism CHF (congestive heart failure) Diabetes mellitus with hyperglycemia, with long-term current use of insulin GERD (gastroesophageal reflux disease) Gout Hearing loss right ear History of breast cancer HTN (hypertension) Non compliance w medication regimen XIOMARA (obstructive sleep apnea) PAD (peripheral artery disease) Status post angioplasty of lower extremities bilaterally as per the patient Urinary bladder disorder wears attends Vitamin D deficiency Surgical History S/P cataract extraction S/P hysterectomy S/P lumpectomy of breast Right Family History Grandmother Cancer BREAST Social History Smoking and tobacco status: never smoked Second hand smoke exposure: No Smoking risk assessment/counseling performed?: No Alcohol intake: never Desire information about alcohol rehabilitation?: No Counseling given: No Desire information about substance/drug rehabilitation?: No Counseling given: No Adopted: No Caregiver/support person: No Lives independently: Yes Household members: none Housing: House Marital status: / Number of children: 1 Number of grandchildren: 1 Highest education level completed: High School Graduate service: No Current occupational status: retired Pets and animals: Yes Pets & animals: dog(s) History of recent travel: No Current gender identity: Female Special sydnie needs: No Physical Exam Const: COMMON NORMALS: alert GENERAL APPEARANCE: cooperative and well developed ORIENTATION/CONSCIOUSNESS: Yes oriented to person and Yes oriented to place HENMT: COMMON NORMALS: normocephalic and atraumatic HEAD & SCALP: normocephalic and atraumatic THROAT: posterior oropharynx normal Eye: COMMON NORMALS: conjunctivae normal CONJUNCTIVA: Yes conjunctivae normal SCLERA: sclerae normal Neck/C-Spine: COMMON NORMALS: supple GENERAL: Yes trachea midline Resp: COMMON NORMALS: normal respiratory effort EFFORT & INSPECTION: Yes able to speak in complete sentences Cardio: COMMON NORMALS: regular rate and regular rhythm RATE: regular rate RHYTHM: regular rhythm GI: COMMON NORMALS: Soft to palpation PALPATION: Yes Soft to palpation and No Tenderness to palpation present (GI) PERCUSSION: normal to percussion Extremity: GENERAL: Yes normal exam except as noted and No edema Neuro: COMMON NORMALS: moves all extremities, no focal motor deficits and no sensory deficits noted; negative for CN's II-XII intact bilaterally (The patient is unable to/unsure how to protrude tongue, no obvious deviatio) SENSORIUM/ORIENTATION: Yes alert, Yes oriented to person, Yes oriented to place and No Orientation impaired Psych: COMMON NORMALS: cooperative MEMORY/COGNITION: Yes memory grossly impaired and Yes cognition grossly intact OTHER: Reports baseline dementia. Unsure of how to complete [id number] test despite demonstration and repeated explanation. Course ED course: - Patient was seen and evaluated by me at bedside - Patient placed on cardiac monitors, IV access obtained - Initial evaluation notable for exam as above, limited by patient understanding of instructions however no gross focal neurologic deficits appreciated. -IV fluids given - Labs notable for mild leukocytosis and relative hemoconcentration. Metabolic panel with evidence of dehydration, glucose is elevated however ketones negative and urine. Delta troponin negative. Urinalysis not concerning for urinary tract infection in the absence of pyuria or positive nitrate - Imaging notable for no acute finding on head CT or acute traumatic injury on CT to cervical spine. Negative chest x-ray. - Upon serial reexamination after treatment the patient was similar - Based on patient history, evaluation, labs, and imaging as interpreted the most likely cause of the patient's condition is altered mental status of unclear etiology, fall, dehydration. - The results of ED evaluation were discussed with the patient including plan for admission due to requirement for level of care not available if discharged to prevent significant worsening/deterioration. - Hospitalist service contacted and agreed to admit the patient. - Patient was admitted without further deterioration or significant events. Note: Click bubbles or prepopulated regalado in note writing are used for assistance with data collection and billing and are inherently more limited than narrative and other text portions of this note. Please use narrative for additional clinical history and defer to narrative/free test for any case of contradictory information. If information appears in only free text or click bubble it should be considered present or absent as reported. Please contact note poem writer for clarifications of clinical information or contradictory information. MDM is a brief summary, contradictory or erroneous seeming information should be clarified and full note should be reviewed. Vital Signs: Vital signs: Vital Signs Temperature 98.7 F 06/02/21 12:00 Pulse Rate 65 06/02/21 12:00 Respiratory Rate 18 06/02/21 12:00 Blood Pressure 155/61 06/02/21 12:00 Pulse Oximetry 99 06/02/21 12:00 MDM - Neuro Symptoms/Deficit MDM Narrative: Medical decision making narrative: 80-year-old lady with history of baseline dementia however typically lives independently presenting with falls and worsening mental status. Limited evaluation due to patient understanding of instructions however no focal neurologic deficits appreciated on clinical exam. Labs likely consistent with dehydration, no acute traumatic injury on CT imaging. Patient requires admission for further evaluation of alteration of mental status. Medical Records: Attestation: I reviewed the patient's medical records. Lab Data: Attestation: I reviewed the patient's lab results. Labs: Lab Results 05/31/21 05/31/21 05/31/21 22:52 23:18 23:43 WBC 11.8 10^3/uL H 10 ^3/uL (4.0-10.0) RBC 5.41 10^6/uL H 10 ^6/uL (4.1-5.3) Hgb 15.8 g/dL H g/dL (11.5-15.3) Hct 45.6 % % (37.0-47.0) MCV 84.3 fl fl (81-99) MCH 29.2 pg pg (28.0-34.0) MCHC 34.6 g/dL g/dL (30.0-36.0) RDW 13.2 % % (12.1-15.1) Plt Count 245 10^3/cmm 10^3 /cmm (130-400) MPV 10.5 fL H fL (7.4-10.4) Neut % (Auto) 58.9 % % Lymph % (Auto) 28.4 % % [place]alier % (Auto) 11.4 % % Eos % (Auto) 0.6 % % Baso % (Auto) 0.4 % % Neut # (Auto) 6.95 10^3/uL 10^3 /uL (1.8-7.7) Lymph # (Auto) 3.4 10^3/uL 10^3/ uL (0.8-4.8) Cavalier # (Auto) 1.3 10^3/uL H 10^ 3/uL (0.2-0.9) Eos # (Auto) 0.1 10^3/uL 10^3/ uL (0.0-0.8) Baso # (Auto) 0.1 10^3/uL 10^3/ uL (0.0-0.1) Nucleated RBC % (a uto) 0 % % Nucleated RBCs # 0.0 /100WBC /100W BC Specimen Type Arterial Sample Site Radial, left ABG pH 7.46 H (7.35-7.45) ABG pCO2 39.3 mmHg mmHg (35-45) ABG pO2 70.5 mmHg L mmHg (80.0-100.0) ABG HCO3 27.7 mmol/L H mmo l/L (22-26) ABG Base Excess 3.6 mmol/L H mmol /L (-2.0-2.0) Darwin Test Pos Hematocrit 50.5 % H % (37-47) O2 Delivery Device Room air Merchandise Collector ID [id number] Sodium Potassium Chloride Carbon Dioxide Anion Gap BUN Creatinine GFR Calculation Glucose POC Glucose 352 mg/dL H mg/dL (70-110) Estimat Average Gl ucose Hemoglobin A1c Calculated Osmolal ity Calcium Magnesium Total Bilirubin AST ALT Alkaline Phosphata se Creatine Kinase Troponin T Baselin e Troponin T 120 Min [place] Troponin T Total Protein Albumin Globulin TSH Urine Color Urine Appearance Urine pH Ur Specific Gravit y Urine Protein Urine Glucose (UA) Urine Ketones Urine Blood Urine Nitrate Urine Bilirubin Urine Urobilinogen Ur Leukocyte Jocelyn ase Urine RBC Urine WBC Ur Squamous Epith Cells Amorphous Sediment Urine Bacteria Hyaline Casts Urine Opiates Scre en Ur Barbiturates Sc reen Ur Phencyclidine S crn Ur Amphetamines Sc reen U Benzodiazepines Scrn Urine Cocaine Scre en U Marijuana (THC) Screen 05/31/21 05/31/21 05/31/21 23:43 23:43 23:43 WBC RBC Hgb Hct MCV MCH MCHC RDW Plt Count MPV Neut % (Auto) Lymph % (Auto) [place] % (Auto) Eos % (Auto) Baso % (Auto) Neut # (Auto) Lymph # (Auto) [place]ier # (Auto) Eos # (Auto) Baso # (Auto) Nucleated RBC % (a uto) Nucleated RBCs # Specimen Type Sample Site ABG pH ABG pCO2 ABG pO2 ABG HCO3 ABG Base Excess Darwin Test Hematocrit O2 Delivery Device Merchandise Collector ID Sodium 132 mmol/L L mmol /L (136-145) Potassium 4.1 mmol/L mmol/L (3.5-5.1) Chloride 94 mmol/L L mmol/ L (98-107) Carbon Dioxide 21 mmol/L L mmol/ L (22-29) Anion Gap 21.1 H (5-19) BUN 29 mg/dL H mg/dL (8-23) Creatinine 1.0 mg/dL H mg/dL (0.5-0.9) GFR Calculation Not Reportable Glucose 334 mg/dL H mg/dL (65-115) POC Glucose Estimat Average Gl ucose 235 Hemoglobin A1c 9.8 % H % (4.0-6.0) Calculated Osmolal ity 293 mOsm/kg mOsm/ kg (285-295) Calcium 9.4 mg/dL mg/dL (8.5-10.5) Magnesium 1.8 mg/dL mg/dL (1.7-2.3) Total Bilirubin 0.9 mg/dL mg/dL (0.15-1.2) AST 18 U/L U/L (0-32) ALT 15 U/L U/L (0-33) Alkaline Phosphata se 78 IU/L IU/L (35-105) Creatine Kinase 289 U/L H U/L (26-192) Troponin T Baselin e 59 ng/L H ng/L (0-10) Troponin T 120 Min [place] Troponin T Total Protein 6.6 g/dL g/dL (6.6-8.7) Albumin 4.2 g/dL g/dL (3.5-5.2) Globulin 2.4 g/dL g/dL (1.3-4.6) TSH 0.79 uIU/mL uIU/m L (0.27-4.20) Urine Color Urine Appearance Urine pH Ur Specific Gravit y Urine Protein Urine Glucose (UA) Urine Ketones Urine Blood Urine Nitrate Urine Bilirubin Urine Urobilinogen Ur Leukocyte Jocelyn ase Urine RBC Urine WBC Ur Squamous Epith Cells Amorphous Sediment Urine Bacteria Hyaline Casts Urine Opiates Scre en Ur Barbiturates Sc reen Ur Phencyclidine S crn Ur Amphetamines Sc reen U Benzodiazepines Scrn Urine Cocaine Scre en U Marijuana (THC) Screen 06/01/21 06/01/21 06/01/21 00:56 00:56 02:07 WBC RBC Hgb Hct MCV MCH MCHC RDW Plt Count MPV Neut % (Auto) Lymph % (Auto) [place]alier % (Auto) Eos % (Auto) Baso % (Auto) Neut # (Auto) Lymph # (Auto) [place]ier # (Auto) Eos # (Auto) Baso # (Auto) Nucleated RBC % (a uto) Nucleated RBCs # Specimen Type Sample Site ABG pH ABG pCO2 ABG pO2 ABG HCO3 ABG Base Excess Darwin Test Hematocrit O2 Delivery Device Merchandise Collector ID Sodium Potassium Chloride Carbon Dioxide Anion Gap BUN Creatinine GFR Calculation Glucose POC Glucose Estimat Average Gl ucose Hemoglobin A1c Calculated Osmolal ity Calcium Magnesium Total Bilirubin AST ALT Alkaline Phosphata se Creatine Kinase Troponin T Baselin e Troponin T 120 Min [place] 60.08 ng/L H ng/L (0-10) Delta Troponin T 1.08 ABS# ABS# (0-10) Total Protein Albumin Globulin TSH Urine Color Yellow (Yellow) Urine Appearance Hazy A (CLEAR) Urine pH 5 (5-7) Ur Specific Gravit y 1.020 (1.005-1.030) Urine Protein Neg (Negative) Urine Glucose (UA) 4+ H (Normal) Urine Ketones Negative (Negative) Urine Blood Neg (Negative) Urine Nitrate Negative (Negative) Urine Bilirubin Neg (Negative) Urine Urobilinogen Norm mg/dL mg/dL (Negative) Ur Leukocyte Jocelyn ase Negative (Negative) Urine RBC None /hpf /hpf (0-2) Urine WBC Rare /hpf /hpf (0-5) Ur Squamous Epith Cells None /hpf /hpf (0-5) Amorphous Sediment Not Reportable Urine Bacteria 1+ /hpf H /hpf (NONE) Hyaline Casts 0-4 /lpf H /lpf Urine Opiates Scre en Negative ng/mL ng /mL (Negative) Ur Barbiturates Sc reen Negative ng/mL ng /mL (Negative) Ur Phencyclidine S crn Negative ng/mL ng /mL (Negative) Ur Amphetamines Sc reen Negative ng/mL ng /mL (Negative) U Benzodiazepines Scrn Negative ng/mL ng /mL (Negative) Urine Cocaine Scre en Negative ng/mL ng /mL (Negative) U Marijuana (THC) Screen Negative ng/mL ng /mL (Negative) 06/01/21 02:40 WBC RBC Hgb Hct MCV MCH MCHC RDW Plt Count MPV Neut % (Auto) Lymph % (Auto) [place] % (Auto) Eos % (Auto) Baso % (Auto) Neut # (Auto) Lymph # (Auto) [place] # (Auto) Eos # (Auto) Baso # (Auto) Nucleated RBC % (a uto) Nucleated RBCs # Specimen Type Sample Site ABG pH ABG pCO2 ABG pO2 ABG HCO3 ABG Base Excess Darwin Test Hematocrit O2 Delivery Device Merchandise Collector ID Sodium Potassium Chloride Carbon Dioxide Anion Gap BUN Creatinine GFR Calculation Glucose POC Glucose 296 mg/dL H mg/dL (70-110) Estimat Average Gl ucose Hemoglobin A1c Calculated Osmolal ity Calcium Magnesium Total Bilirubin AST ALT Alkaline Phosphata se Creatine Kinase Troponin T Baselin e Troponin T 120 Min [place] Troponin T Total Protein Albumin Globulin TSH Urine Color Urine Appearance Urine pH Ur Specific Gravit y Urine Protein Urine Glucose (UA) Urine Ketones Urine Blood Urine Nitrate Urine Bilirubin Urine Urobilinogen Ur Leukocyte Jocelyn ase Urine RBC Urine WBC Ur Squamous Epith Cells Amorphous Sediment Urine Bacteria Hyaline Casts Urine Opiates Scre en Ur Barbiturates Sc reen Ur Phencyclidine S crn Ur Amphetamines Sc reen U Benzodiazepines Scrn Urine Cocaine Scre en U Marijuana (THC) Screen EKG Data^: EKG 1: Attestation: I personally reviewed and interpreted this EKG as follows: EKG interpretation date: 05/31/21 EKG interpretation time: 22:38 Interpretation: Twelve-lead EKG shows a regular rhythm at a rate of 87. AK interval grossly normal, QRS duration 107, QTc 413. Normal axis. Interpretation: Supraventricular rhythm, somewhat limited interpretation secondary to baseline EKG 2: Attestation: I personally reviewed and interpreted this EKG as follows: EKG interpretation date: 06/01/21 EKG interpretation time: 02:25 Interpretation: Twelve-lead EKG shows a regular rhythm at a rate of 89. AK interval 143, QRS duration 102, QTc 399. Normal axis. Interpretation: Sinus rhythm. LVH with nonspecific ST segment abnormalities. Discharge Plan Discharge Patient Disposition: Placed in Observation Admit Provider: Padma Wasserman Clinical Impression: Altered mental status, Dehydration Discharge Diet: Cardiac Discharge Activity: Increase activity as tolerated and Use walker/crutches as instructed Coding Level of Care Code ED [employer] for Chg Fwd Exam Comprehensive
--- NOTE | 2021-05-31 22:52 | XRR_ITS ---
PROCEDURE INFORMATION: Exam: XR Chest Exam date and time: 05/31/2021 10:52 PM Age: 80 years old Clinical indication: Other: Weakness; Prior surgery; Surgery type: RT breast; Additional info: AMS TECHNIQUE: Imaging protocol: XR of the chest. Views: 1 view. COMPARISON: CR XR chest 2V* [id number] 10/11/2020 9:25 AM FINDINGS: Lungs: Unremarkable. No consolidation. Pleural spaces: Unremarkable. No pleural effusion. No pneumothorax. Heart/Mediastinum: Unremarkable. No cardiomegaly. Bones/joints: Unremarkable. XR/XR chest 1V portable [id number] IMPRESSION: No change, unremarkable
--- NOTE | 2021-05-31 22:52 | CTR_ITS ---
PROCEDURE INFORMATION: Exam: CT Head Without Contrast Exam date and time: 05/31/2021 10:52 PM Age: 80 years old Clinical indication: Altered mental status/memory loss; Additional info: AMS TECHNIQUE: Imaging protocol: Computed tomography of the head without contrast. Radiation optimization: All CT scans at this facility use at least one of these dose optimization techniques: automated exposure control; mA and/or kV adjustment per patient size (includes targeted exams where dose is matched to clinical indication); or iterative reconstruction. COMPARISON: CT head wo con* [id number] 03/16/2020 8:30 AM RADIATION DOSE METRICS: Total DLP (mGy-cm): 684.52 FINDINGS: Brain: No CT evidence for acute ischemia, mass or hemorrhage. No extra-axial fluid collection, midline shift or hydrocephalus. Generalized sulcal widening is due to white matter volume loss. Small chronic lacune in the left basal ganglia. Cerebral ventricles: No ventriculomegaly. Paranasal sinuses: Mucoid fluid collects in the sphenoid sinus. Mastoid air cells: Visualized mastoid air cells are well aerated. Bones/joints: Chronic degenerative changes in both temporomandibular joints. Soft tissues: Unremarkable. CT/CT head wo con* [id number] IMPRESSION: 1. No acute findings. 2. Age related changes.
--- NOTE | 2021-05-31 22:53 | ECG_ITS ---
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
--- NOTE | 2021-05-31 22:58 | CTR_ITS ---
PROCEDURE INFORMATION: Exam: CT Cervical Spine Without Contrast Exam date and time: 05/31/2021 10:58 PM Age: 80 years old Clinical indication: Injury or trauma; Fall; Blunt trauma TECHNIQUE: Imaging protocol: Computed tomography images of the cervical spine without contrast. Radiation optimization: All CT scans at this facility use at least one of these dose optimization techniques: automated exposure control; mA and/or kV adjustment per patient size (includes targeted exams where dose is matched to clinical indication); or iterative reconstruction. COMPARISON: CT head wo con* [id number] 05/31/2021 11:09 PM RADIATION DOSE METRICS: Total DLP (mGy-cm): 535.89 FINDINGS: Bones/joints: At C3-C4 there is 1 mm of grade 1 degenerative subluxation. Discs/Spinal canal/Neural foramina: At C5-C6 there is a chronic disc spur complex lateralizing towards the left producing mild central stenosis. At C6-C7 a chronic disc spur complex produces mild central stenosis. Prevertebral Space: There is no cervical fracture or prevertebral swelling. Lungs: Lung apices are normal. Vasculature: There is heavy calcified plaque in both carotid bifurcations. Soft tissues: Unremarkable. CT/CT cervical spin wo con* [id number] IMPRESSION: 1. No acute findings. 2. Chronic lower cervical stenosis due to disc spur complexes. 3. Heavy calcified plaque in both carotid arteries
[2021-05-31 23:23] LABS: Glucose Point of Care 352 mg/dL (70-110)
[2021-05-31 23:48] LABS: ABG PCO2 39.3 mmHg (35-45); ABG PH Result 7.46 (7.35-7.45); Arterial Blood Gas Hematocrit 50.5 % (37-47); Base Excess ABG 3.6 mmol/L (-2.0-2.0); Blood Gas Allen Test Pos; Blood Gas Sample Site Radial, left; Blood Gas Sample Type Arterial; HCO3 ABG 27.7 mmol/L (22-26); Oxygen Device ROOM AIR; PO2 ABG 70.5 mmHg (80.0-100.0)
[2021-06-01] VITALS (7 sets, daily range): BP systolic 105–185; BP diastolic 20–79; PULSE 74–98; RESP 16–18; TEMP 36.6–37.6; O2SAT 91–97; BMI 32.4
[2021-06-01] LABS: Basophils # 0.1 10^3/uL (0.0-0.1); Basophils % 0.4 %; Eosinophils # 0.1 10^3/uL (0.0-0.8); Eosinophils % 0.6 %; Hematocrit 45.6 % (37.0-47.0); Hemoglobin 15.8 g/dL (11.5-15.3); Lymphocytes # 3.4 10^3/uL (0.8-4.8); Lymphocytes % 28.4 %; Mean Corpuscular HGB Conc 34.6 g/dL (30.0-36.0); Mean Corpuscular Hemoglobin 29.2 pg (28.0-34.0); Mean Corpuscular Volume 84.3 fl (81-99); Mean Platelet Volume 10.5 fL (7.4-10.4); Monocytes # 1.3 10^3/uL (0.2-0.9); Monocytes % 11.4 %; Neutrophils # 6.95 10^3/uL (1.8-7.7); Neutrophils % 58.9 %; Nucleated Red Blood Cells % 0 %; Platelet Count 245 10^3/cmm (130-400); Red Blood Count 5.41 10^6/uL (4.1-5.3); Red Cell Distribution Width 13.2 % (12.1-15.1); White Blood Count 11.8 10^3/uL (4.0-10.0)
[2021-06-01 00:25] LABS: Alanine Aminotransferase 15 U/L (0-33); Albumin Level 4.2 g/dL (3.5-5.2); Alkaline Phosphatase 78 IU/L (35-105); Anion Gap 21.1 (5-19); Aspartate Amino Transferase 18 U/L (0-32); Blood Urea Nitrogen 29 mg/dL (8-23); Calcium 9.4 mg/dL (8.5-10.5); Carbon Dioxide 21 mmol/L (22-29); Chloride 94 mmol/L (98-107); Creatine Phosphokinase 289 U/L (26-192); Globulin 2.4 g/dL (1.3-4.6); Glucose 334 mg/dL (65-115); Magnesium 1.8 mg/dL (1.7-2.3); Osmolality Calculated 293 mOsm/kg (285-295); Potassium 4.1 mmol/L (3.5-5.1); Sodium 132 mmol/L (136-145); Thyroid Stimulating Hormone 0.79 uIU/mL (0.27-4.20); Total Bilirubin 0.9 mg/dL (0.15-1.2); Total Protein 6.6 g/dL (6.6-8.7); Troponin(5th) Baseline 59 ng/L (0-10)
--- NOTE | 2021-06-01 00:53 | ECG_ITS ---
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1940 Requested By: Hany Vora Order Number: [id number] Reading MD: VIVIANA FRAZIER Measurements Intervals [place] Rate: 89 P: 5 NM: 143 QRS: 37 QRSD: 102 T: 215 QT: 352 QTc: 430 Interpretive Statements SINUS RHYTHM LEFT VENTRICULAR HYPERTROPHY AND ST-T CHANGE [VOLTAGE CRITERIA PLUS ST/T ABNORMALITY] Compared to ECG 05/31/2021 23:35:31 Supraventricular rhythm no longer present ST (T wave) deviation still present Electronically Signed On 06-02-2021 18:21:47 LOG CHIPPER by VIVIANA FRAZIER [id number]
[2021-06-01 01:12] LABS: Add Urine Microscopic? YES; Bacteria Urine 1+ /hpf; Bilirubin Urine Neg (Negative); Blood Urine Neg (Negative); Glucose Urine UA 4+ (Normal); Hyaline Casts Urine 0-4 /lpf; Ketones Urine Negative (Negative); Leukocyte Esterase Urine Negative (Negative); Nitrate Urine Negative (Negative); Protein Urine Neg (Negative); Urine Appearance Hazy (CLEAR); Urine Color Yellow (Yellow); Urobilinogen Urine Norm (Negative); WBC Urine RARE /hpf (0-5); pH Urine 5 (5-7)
[2021-06-01] MEDS: sodium chloride 0.9% 1,000 ML 999 ML IV (02:27)
[2021-06-01 02:45] LABS: Troponin 5 2HR 60.08 ng/L (0-10); Troponin 5 2HR Delta 1.08 ABS# (0-10)
[2021-06-01 02:45] LABS: Glucose Point of Care 296 mg/dL (70-110)
--- NOTE | 2021-06-01 04:53 | ECG_ITS ---
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1940 Requested By: Hany Vora Order Number: [id number] Reading MD: VIVIANA FRAZIER Measurements Intervals [place] Rate: 86 P: 44 MT: 162 QRS: 46 QRSD: 109 T: 195 QT: 359 QTc: 430 Interpretive Statements SINUS RHYTHM WITH OCCASIONAL SUPRAVENTRICULAR PREMATURE COMPLEXES ST DEVIATION AND MODERATE T-WAVE ABNORMALITY, CONSIDER LATERAL ISCHEMIA [-0.1+ mV T WAVE IN I/aVL/V5/V6] ST DEVIATION AND MODERATE T-WAVE ABNORMALITY, CONSIDER INFERIOR ISCHEMIA [-0.1+ mV T WAVE IN II/aVF] Compared to ECG 06/01/2021 02:19:49 T-wave abnormality now present Possible ischemia now present Left ventricular hypertrophy no longer present ST (T wave) deviation no longer present Electronically Signed On 06-02-2021 18:21:41 WIRE COMMUNICATIONS ENGINEER by VIVIANA FRAZIER [id number]
--- NOTE | 2021-06-01 05:33 | PM.HP ---
Providers/Chief Complaint Admitting Physician: Padma Wasserman MD Primary Care Provider: Jamie Brock, [facility] Chief Complaint: Possible Stroke History of Present Illness Raine Glover is a 80 year old female with history of hypertension, hyperlipidemia, CHF, history of NM, diabetes, hypothyroidism, and reported dementia brought to the ER today with AMS. no clear histiory available at this time as patient unable to participate. it appears patient lives alone, was found down at home 2 days ago, however waas subsequently able to get around. Some neighbors checked on her today at her grandon's request and found her to be confused. On presentation to the ER patient is lethargic, wakes up to calling name and tells me her name is raine but unable to participate any further. She moves her legs on command but unable to follow commands to move upper xtremities though she does this spontaneously in bed/. She appears to be dehydrated. Afebrile on arrival, saturating 91% on RA. CT head without acute abnormalities, blood sugar 350 on admission, now at 250. Review of Systems General: Reports: ROS unobtainable due to mental status Medications/Allergies Home Medications Medication Instructions Recorded Confirmed Last Taken Type cholecalciferol (vitamin D3) 125 125 mcg PO DAILY #90 cap 01/01/20 06/01/21 Unknown Rx mcg (5,000 unit) capsule omeprazole 20 mg capsule,delayed 20 mg PO DAILY PRN 01/01/20 05/25/21 Unknown History release meclizine 25 mg tablet 25 mg PO .at bedtime #30 tab 03/10/20 05/25/21 Unknown Rx aspirin 81 mg PO DAILY 05/18/20 06/01/21 Unknown History nystatin 100,000 unit/gram topical 1 applic TOPICAL TID 30 Days #60 g 03/24/21 06/01/21 Unknown Rx powder pen needle, diabetic 33 gauge x #100 ea 03/24/21 05/25/21 Unknown Rx 5/32 Diabetic shoes with inserts #1 ea 05/04/21 05/25/21 Unknown Rx glipizide 10 mg tablet 10 mg PO BID #180 tab 05/25/21 06/01/21 Unknown Rx hydralazine 10 mg tablet 10 mg PO BID #180 tab 05/25/21 06/01/21 Unknown Rx insulin glargine 100 unit/mL (3 30 unit SUBCUT QAM #15 ml 05/25/21 05/25/21 Unknown Rx mL) subcutaneous pen levothyroxine 88 mcg tablet 88 mcg PO DAILY #90 tab 05/25/21 06/01/21 Unknown Rx losartan 100 mg tablet 100 mg PO DAILY #90 tab 05/25/21 06/01/21 Unknown Rx metoprolol tartrate 50 mg tablet 50 mg PO BID #180 tab 05/25/21 06/01/21 Unknown Rx potassium chloride 10 mEq 10 meq PO BID #180 tab 05/25/21 06/01/21 Unknown Rx tablet,extended release(part/cryst) venlafaxine 37.5 mg 75 mg PO DAILY #180 cap 05/25/21 06/01/21 Unknown Rx capsule,extended release 24 hr Lipitor 20 mg PO BEDTIME 06/01/21 06/01/21 Unknown History furosemide [Lasix] See Rx Instructions .ROUTE .COMPLEX 06/01/21 06/01/21 Unknown History Allergies Allergy/AdvReac Type Severity Reaction Status Date / Time adhesive tape Allergy Unknown ALGY-Rash Verified 05/04/21 15:38 codeine Allergy Unknown ALGY-Rash Verified 05/04/21 15:38 morphine Allergy Unknown Verified 05/04/21 15:38 acetaminophen AdvReac Unknown ADR-Nausea Verified 05/04/21 15:38 propoxyphene AdvReac Unknown ADR-Nausea Verified 05/04/21 15:38 PFSH Acute PFSH: Medical History Adult onset hypothyroidism CHF (congestive heart failure) Diabetes mellitus with hyperglycemia, with long-term current use of insulin GERD (gastroesophageal reflux disease) Gout Hearing loss right ear History of breast cancer HTN (hypertension) Non compliance w medication regimen XIOMARA (obstructive sleep apnea) PAD (peripheral artery disease) Status post angioplasty of lower extremities bilaterally as per the patient Urinary bladder disorder wears attends Vitamin D deficiency Surgical History S/P cataract extraction S/P hysterectomy S/P lumpectomy of breast Right Family History Grandmother Cancer BREAST Social History Smoking and tobacco status: never smoked Second hand smoke exposure: No Smoking risk assessment/counseling performed?: No Alcohol intake: never Desire information about alcohol rehabilitation?: No Counseling given: No Desire information about substance/drug rehabilitation?: No Counseling given: No Adopted: No Caregiver/support person: No Lives independently: Yes Household members: none Housing: House Marital status: / Number of children: 1 Number of grandchildren: 1 Highest education level completed: High School Graduate service: No Current occupational status: retired Pets and animals: Yes Pets & animals: dog(s) History of recent travel: No Current gender identity: Female Special sydnie needs: No Vitals/I&O/Wt Last Vital Signs Temp 98.2 F 05/31/21 22:37 Pulse 91 06/01/21 04:58 Resp 18 06/01/21 04:58 BP 150/70 06/01/21 04:58 Pulse Ox 91 06/01/21 04:58 05/31/21 05/31/21 06/01/21 14:59 22:59 06:59 Intake Total 1000 / 1000 Balance 1000 / 1000 Weight last 48 hrs Weight 72.938 kg Weight 66.224 kg Physical Exam Narrative: EXAM NARRATIVE: General: No acute distress, AO x1 HEENT: PERRLA, pupils bilaterally equal and reactive, pallors not present Chest: Normal vesicular breath sounds, no added sounds, equal good air entry bilaterally CVS: S1-S2 regular, no murmurs, no tachycardia, no gallops, no rubs Abdomen: Soft, nontender, no organomegaly, bowel sounds present Neuro: moves all extremities in bed, however not to commands, able to opne eyes and tell me her name but otherwise lethargic Data : 05/31/21 23:43 05/31/21 23:43 A&P Assessment and plan (1) Altered mental status: Cause under evaluation , appears encephalopathic CT head without acute intracranial events TSH within range UA with ketonuria but no nitrates or leukocyte esterase Check ammonia level no consolidation on CXR Elevated blood glucose 350, down to 250 after being given insulin in the ER. Check CMP for anion gap after insulin and hydration, mildly elevated at 21 upon admission Iv hydration ABG without hypoxia or hypercapnea urine tox screen May need MRI &/Or LP if cause remains unclear with above assessment Status: Acute (2) Dehydration: Status: Acute (3) Diabetes mellitus with hyperglycemia, with long-term current use of insulin: Status: Chronic Qualifiers: Diabetes mellitus type: type 2 Qualified Code(s): E11.65 - Type 2 diabetes mellitus with hyperglycemia; Z79.4 - alf (current) use of insulin Attestations Medical Necessity Statement*: anticipate >2midnight admission for evaluation and management of altered mental status Coding Level of Care Code Acute Clerical Grader for [facility] Diagnoses Altered mental status R41.82 Dehydration E86.0 Diabetes mellitus with hyperglycemia, with long-term current use of insulin E11.65; Z79.4 Diabetes mellitus type: type 2
[2021-06-01] MEDS: sodium chloride 0.9% 1,000 ML 50 ML IV (06:21)
[2021-06-01] MEDS: enoxaparin 40 mg/0.4 mL Syringe SUBCUT (06:22)
[2021-06-01] MEDS: insulin glargine 100 units/1 mL 30 UNIT SUBCUT (06:22)
[2021-06-01 06:28] LABS: Glucose Point of Care 250 mg/dL (70-110)
[2021-06-01 06:44] LABS: Troponin 5 6HR 53.37 ng/L (0-10)
[2021-06-01 06:53] LABS: Troponin 5 6HR Delta -5.63 ng/L (0-12)
[2021-06-01 07:02] LABS: Adenovirus Not Detected (NOT DETECT); Chlamydia Pneumoniae Not Detected (NOT DETECT); Coronavirus 229E,HKU1,NL63,OC4 Not Detected (NOT DETECT); Human Metapneumovirus Not Detected (NOT DETECT); Human Rhinovirus/Enterovirus Not Detected (NOT DETECT); Influenza A Not Detected (NOT DETECT); Influenza A H1 Not Detected (NOT DETECT); Influenza A H1-2009 Not Detected (NOT DETECT); Influenza A H3 Not Detected (NOT DETECT); Influenza B Not Detected (NOT DETECT); Mycoplasma Pneumoniae Not Detected (NOT DETECT); Parainfluenza Virus Type 1 Not Detected (NOT DETECT); Parainfluenza Virus Type 2 Not Detected (NOT DETECT); Parainfluenza Virus Type 3 Not Detected (NOT DETECT); Parainfluenza Virus Type 4 Not Detected (NOT DETECT); Respiratory Syncytial Virus A Not Detected (NOT DETECT); Respiratory Syncytial Virus B Not Detected (NOT DETECT); SARS-COV-2 Not Detected (NOT DETECT)
[2021-06-01 07:38] LABS: NT Pro B Type Natriuretic Pept 604 pg/mL (0-450)
[2021-06-01 07:49] LABS: Amphetamines Screen Urine Negative (Negative); Barbiturates Screen Urine Negative (Negative); Benzodiazepines Screen Urine Negative (Negative); Cocaine Screen Urine Negative (Negative); Opiate Screen Urine Negative (Negative); PCP Screen Urine Negative (Negative); THC Screen Urine Negative (Negative)
[2021-06-01 08:02] LABS: Alanine Aminotransferase 13 U/L (0-33); Albumin Level 3.6 g/dL (3.5-5.2); Alkaline Phosphatase 65 IU/L (35-105); Anion Gap 18.7 (5-19); Aspartate Amino Transferase 18 U/L (0-32); Blood Urea Nitrogen 27 mg/dL (8-23); Calcium 8.7 mg/dL (8.5-10.5); Carbon Dioxide 22 mmol/L (22-29); Chloride 99 mmol/L (98-107); Globulin 2.3 g/dL (1.3-4.6); Glucose 263 mg/dL (65-115); Osmolality Calculated 296 mOsm/kg (285-295); Potassium 3.7 mmol/L (3.5-5.1); Sodium 136 mmol/L (136-145); Total Bilirubin 0.8 mg/dL (0.15-1.2); Total Protein 5.9 g/dL (6.6-8.7)
--- NOTE | 2021-06-01 09:18 | CT_ITS ---
WS: [id number] CT angio headneck* [id number] REASON FOR EXAM: confusion TECHNIQUE: Coronal and sagittal 2-D and MIP reformations. IV CONTRAST ADMINISTERED: 95 mL of Omnipaque 350 TOTAL EXAM DLP: 2116.[address] scans at [facility] use at least one of these dose optimization techniques: automat ed exposure control; mA and/or kV adjustment per patient size (includes targeted exams where dose is matched to clinical indication); or iterative reconstruction. FINDINGS: Difficult to evaluate stenoses due to the heavily calcified arterial plaque. ARCH/CERVICAL: No significant stenosis in the origin of the innominate or left subclavian arteries from the aortic a rch. The origins of the internal carotid arteries are unremarkable. There is approximately 40% stenosis by calcified plaque in the origins of the vertebral arteries. Cervical portions of the common carotid arteries are moderately tortuous. Extensive calcified plaque in the carotid bifurcations and origins of the internal carotid arteries. Bilaterally there are 50-60% stenoses in the origins of the internal carotid arteries. Cervical portions of the vertebral arteries are unremarkable. INTRACRANIAL: Calcified plaque in the siphon portion of the internal carotid arteries and terminus portions without significant stenosis. No thrombus identified. No aneurysm identified. The anterior and middle cerebr al arteries bilaterally are patent without high-grade stenosis or thrombus. No aneurysm identified. Basilar artery is somewhat small but patent. Difficult to evaluate the posterior cerebral arteries. They are patent. No thrombus or high-grade omar nosis identified. CT/CT angio headneck* [id number] IMPRESSION: Heavily calcified plaque makes stenosis evaluation difficult. There is approximately 40% stenosis in the origin of both vertebral arteries an d 50-60% stenosis in the origins of the internal carotid arteries. No thrombus was identified. No significant stenosis in the intracranial circulation. No intracranial aneurysm or arteriovenous malformation.
--- NOTE | 2021-06-01 10:34 | PC.CHAP ---
Pastoral Care Encounter/Spiritual Assessment Type of Contact [x] Declined psych therapist visit [] Patient/Family/Request visit [] Outpatient visit [] Follow-up visit [] Physician referral [] Code/Alert [] Routine visit [] Staff referral [] Actively dying [] Patient sleeping [] Family support [] [] Out of room [] Palliative care [] [] Receiving care in room [] Pre-surgical visit [] Trauma [] Long length of stay [] ICU visit [] Other: Relational/Emotional Strength [] Patient feels connected with others/family/visitors/staff [] Distress [] Loneliness/isolation [] Abandonment Spirituality of Patient [] Person of Katelynn [] Attends Lutheran of their Katelynn [] Believes in Prayer [] Reads Bible or Caodaism materials [] There are Spiritual issues to be addressed Shingle Carrier Interventions [] Prayer [] Active listening [] Non-anxious presence [] Spiritual/emotional support [] Crisis/trauma care [] Spiritual counseling [] Bereavement support [] Provided bereavement packet [] Provided Bible/devotional materials [] Provided toy/stuffed animal, coloring book to patient or family member [] Provided Communion [] Anointing/Yulan [] Salvation [] Completed spiritual assessment [] Other: Impact on Illness or Injury [] Angry [] Fearful [] Anxious [] Often cries [] Exhaustion [] Unable to work [] Unable to attend cheondoism [] Unable to walk/stand [] Unable to read [] Unable to drive [] Unable to eat/drink [] Unable to sleep [] Unable to be with family [] Patient intubated [] Other: Summary Declined psych therapist visit Time spent with patient 5 mins
--- NOTE | 2021-06-01 11:16 | PM.PN ---
Subjective Subjective: Interval history: This morning patient is awake, she is able to tell me her name, date of and name of her son, however she is not sure what happened at home, she is moving all of her extremities, able to follow commands, does not have typical neurological deficits Looks dehydrated Denying chest pain, shortness of breath, dysuria Vitals/I&O/Wt Last Vital Signs Temp 99.7 F H 06/01/21 08:00 Pulse 93 06/01/21 08:00 Resp 18 06/01/21 08:00 BP 179/79 06/01/21 08:00 Pulse Ox 95 06/01/21 08:00 05/31/21 06/01/21 06/01/21 22:59 06:59 14:59 Intake Total 1000 / 1000 Balance 1000 / 1000 Weight last 48 hrs Weight 72.938 kg Weight 66.224 kg Physical Exam Narrative: EXAM NARRATIVE: Elderly female Open her eyes to verbal command Following my commands Able to move upper and lower extremities Looks dehydrated Nontender EOMI, PERRLA Dry cracked lips S1, S2 Saturating well on room air Cooperative during my evaluation Data : 05/31/21 23:43 06/01/21 06:05 A&P Assessment and plan (1) Altered mental status: Status: Acute (2) Dehydration: Status: Acute (3) Diabetic feet: Status: Acute (4) Diabetes mellitus with hyperglycemia, with long-term current use of insulin: Status: Chronic Qualifiers: Diabetes mellitus type: type 2 Qualified Code(s): E11.65 - Type 2 diabetes mellitus with hyperglycemia; Z79.4 - parts counterman (current) use of insulin (5) Vitamin D deficiency: Status: Acute (6) Adult onset hypothyroidism: Status: Chronic (7) Generalized anxiety disorder: Status: Chronic (8) PAD (peripheral artery disease): Status: Acute (9) XIOMARA (obstructive sleep apnea): Status: Acute Additional A&P Information I was able to get in touch with her grandson who was stating that on 05/31 in the morning neighbors checked on her and she was found on the floor however at that time patient stated that she was sleepy and decided to sleep on the floor this made her grandson very concerned and he checked on her around 8 PM yesterday and she was very confused, her speech was slurred and she kept saying no repeatedly No signs of meningitis, she is afebrile, leukocytosis seems reactive to me no active sites of neurological deficit As per the ludin left-sided slight facial droop is old from previous stroke This morning I requested CTA head and neck which showed 50 to 60% stenosis of carotid vessels bilaterally Requested MRI head to rule out acute ischemic stroke Currently patient is awake and alert My suspicion is high for sleep apnea, when she woke up she was very groggy and drowsy however mentation improved after an hour when I reevaluated her We will keep her on dual antiplatelet therapy and high-dose statins Will need outpatient Dr. Calles's appointment for significant stenosis Continue levothyroxine We will get PT and speech eval For now continue p.o. 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
[2021-06-01 12:13] LABS: Ammonia 28 umol/L (11-51)
[2021-06-01 12:37] LABS: Estmated Average Glucose 235; Hemoglobin A1C 9.8 % (4.0-6.0)
[2021-06-01] MEDS: aspirin 81 mg EC Tablet PO (12:48)
[2021-06-01] MEDS: pantoprazole DR 40 mg Tablet PO (12:48)
[2021-06-01] MEDS: metoprolol tartrate 50 mg Tablet PO ×2 (12:48→21:23)
[2021-06-01 12:49] LABS: Chol HDL Ratio 4.24 mg/dL (0.0-4.40); Cholesterol 140 mg/dL (0-200); HDL Cholesterol 33 mg/dL (60-100); LDL Cholesterol Calculated 79 mg/dL (50-129); LDL HDL Ratio 2.39 RATIO (0.00-3.22); Triglycerides 139 mg/dL (0-150)
--- NOTE | 2021-06-01 14:30 | MR_ITS ---
WS: [id number] MRI HEAD WITHOUT CONTRAST TECHNIQUE: Sagittal T1, T2 axial, T2 axial FLAIR, axial and coronal T1 images, axial susceptibility w eighted imaging, axial diffusion weighted images, and coronal T2 images were obtained. CLINICAL INFORMATION: encephalopathy COMPARISON: CT head May 31, 2021 and CTA June 01, 2021 FINDINGS: A few tiny punctate foci of restricted diffusion involving the left hurt radiata and left frontal p eriventricular white matter near the caudate. Additional tiny punctate foci of restricted diffusion i nvolving the left parasagittal occipital and posterior temporal lobes. Findings are compatible with t iny punctate foci of acute ischemia. Consider embolic etiology No significant mass effect or midline shift. Mild small vessel changes with moderate parenchymal volu me loss. Small vessel changes in the kaye. Normal vascular flow voids at the skull base. No extra axi al fluid collections. 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 Paranasal sinuses and m astoid air cells are well aerated. No hemosiderin on susceptibly weighted images. Normal optic chiasm and pituitary infundibulum. Modera te symmetric atrophy temporal lobes and hippocampal formations. Normal cavernous sinuses and Meckel's cave. MR/MR head wo con* [id number] IMPRESSION: 1. Several tiny punctate foci of acute ischemia involving the left hurt radi irving and periventricular white matter. Additional punctate foci involving the le ft posterior parietal lobe, posterior occipital, and temporal lobeS with some i n a parasagittal distribution. Consider embolic etiologies. 2. No mass effect or midline shift. 3. Mild small vessel changes with moderate parenchymal volume loss. 4. Small vessel changes in the kaye. 5. Numerous tiny chronic lacunar infarcts in the cerebellum bilaterally. 6. No other acute findings Notified Anabela Nicole MD at 06/01/2021 4:12 PM.
[2021-06-01 17:22] LABS: Glucose Point of Care 354 mg/dL (70-110)
[2021-06-01] MEDS: insulin lispro 100 unit/1 mL SUBCUT (18:06)
[2021-06-01] MEDS: hyDRALAzine 10 mg Tablet PO (18:06)
[2021-06-01] MEDS: enoxaparin 80 mg/0.8 mL Syringe 70 MG SUBCUT (18:06)
[2021-06-01] MEDS: atorvastatin 40 mg Tablet 20 MG PO (21:23)
[2021-06-02] VITALS: BP 154/83; PULSE 65; RESP 18; TEMP 36.8; O2SAT 91
[2021-06-02 01:18] LABS: Glucose Point of Care 246 mg/dL (70-110)
[2021-06-02 01:18] LABS: Glucose Point of Care 269 mg/dL (70-110)
[2021-06-02 04:00] VITALS: BP 186/82; PULSE 64; RESP 16; TEMP 36.7; O2SAT 95
[2021-06-02 05:46] LABS: Basophils # 0.1 10^3/uL (0.0-0.1); Basophils % 0.8 %; Eosinophils # 0.5 10^3/uL (0.0-0.8); Eosinophils % 5.7 %; Hematocrit 49.6 % (37.0-47.0); Hemoglobin 16.2 g/dL (11.5-15.3); Lymphocytes # 3.1 10^3/uL (0.8-4.8); Lymphocytes % 36.3 %; Mean Corpuscular HGB Conc 32.7 g/dL (30.0-36.0); Mean Corpuscular Volume 88.9 fl (81-99); Mean Platelet Volume 10.2 fL (7.4-10.4); Monocytes # 0.8 10^3/uL (0.2-0.9); Monocytes % 9.5 %; Neutrophils # 3.96 10^3/uL (1.8-7.7); Neutrophils % 47.2 %; Nucleated Red Blood Cells % 0 %; Platelet Count 176 10^3/cmm (130-400); Red Blood Count 5.58 10^6/uL (4.1-5.3); Red Cell Distribution Width 13.2 % (12.1-15.1); White Blood Count 8.4 10^3/uL (4.0-10.0)
[2021-06-02] MEDS: enoxaparin 80 mg/0.8 mL Syringe 70 MG SUBCUT (06:09)
[2021-06-02] MEDS: levothyroxine 88 mcg Tablet PO (06:10)
[2021-06-02] MEDS: insulin glargine 100 units/1 mL 30 UNIT SUBCUT (06:10)
[2021-06-02 06:13] LABS: Alanine Aminotransferase 19 U/L (0-33); Albumin Level 3.4 g/dL (3.5-5.2); Alkaline Phosphatase 67 IU/L (35-105); Anion Gap 17.5 (5-19); Aspartate Amino Transferase 32 U/L (0-32); Blood Urea Nitrogen 16 mg/dL (8-23); Calcium 9.4 mg/dL (8.5-10.5); Carbon Dioxide 20 mmol/L (22-29); Chloride 104 mmol/L (98-107); Creatinine Clr Calc Pharmacy 66.7332; Globulin 2.9 g/dL (1.3-4.6); Glucose 159 mg/dL (65-115); Osmolality Calculated 289 mOsm/kg (285-295); Potassium 4.5 mmol/L (3.5-5.1); Sodium 137 mmol/L (136-145); Total Bilirubin 0.7 mg/dL (0.15-1.2); Total Protein 6.3 g/dL (6.6-8.7)
[2021-06-02 06:31] LABS: Glucose Point of Care 186 mg/dL (70-110)
[2021-06-02 08:00] VITALS: BP 160/57; PULSE 69; RESP 18; TEMP 37.2; O2SAT 98
[2021-06-02] MEDS: losartan 50 mg Tablet 100 MG PO (08:59)
[2021-06-02] MEDS: metoprolol tartrate 50 mg Tablet PO (08:59)
[2021-06-02] MEDS: hyDRALAzine 10 mg Tablet PO (08:59)
[2021-06-02] MEDS: aspirin 81 mg EC Tablet PO (08:59)
[2021-06-02] MEDS: pantoprazole DR 40 mg Tablet PO (08:59)
[2021-06-02] MEDS: insulin lispro 100 unit/1 mL SUBCUT (08:59)
--- NOTE | 2021-06-02 10:33 | PM.DCS ---
Discharge Providers Date of Admission: 06/01/21 03:32 Date of Discharge: June 02, 2021 Attending Provider at Admission: Padma Wasserman MD Attending Provider at Discharge: Padma Wasserman MD Primary Care Provider: ALEJANDRO Vera Diagnoses at Discharge Discharge Diagnosis (1) Altered mental status: Status: Acute (2) Dehydration: Status: Acute (3) Diabetic feet: Status: Acute (4) Diabetes mellitus with hyperglycemia, with long-term current use of insulin: Status: Chronic Qualifiers: Diabetes mellitus type: type 2 Qualified Code(s): E11.65 - Type 2 diabetes mellitus with hyperglycemia; Z79.4 - long term acute care registered nurse (current) use of insulin (5) Vitamin D deficiency: Status: Acute (6) Adult onset hypothyroidism: Status: Chronic (7) Generalized anxiety disorder: Status: Chronic (8) PAD (peripheral artery disease): Status: Acute Permanent problem details: Status post angioplasty of lower extremities bilaterally as per the patient (9) XIOMARA (obstructive sleep apnea): Status: Acute Reason for Visit Reason for Visit: Possible Stroke Hospital Course Hospital Course Patient was admitted for management and evaluation of encephalopathy, altered mental status. Patient was found on the floor by the neighbors on 05/31 in the morning, patient is stating that she was feeling weak, she fell on the floor on her hips, did not have enough energy to get up, she was feeling tired, grabbed a pillow and slept on the floor, grandson checked on her around 8:00PM, noticed slurring of speech, weakness, lethargy and brought her to the ER for further evaluation. Code stroke was not called at the time of admission. 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 UA unremarkable, CBC, BMP unremarkable. Blood culture most likely is a contaminant however final report is pending, she has been afebrile. Her telemetry showed sinus rhythm, EKG consistent with sinus rhythm as well no previous history of A. fib. I discussed with the patient the indication for anticoagulating agent. She is endorsing multiple falls, grandson is in the room who is also concerned about her recurrent falls at home. We decided against anticoagulating agent. Decision was made to discharge her on high-dose of aspirin and Plavix. She will take dual antiplatelet therapy for next 21 days and then continue high-dose of aspirin with atorvastatin. PT evaluated her and deemed her stable to go home with home health program. Home health services to be arranged. Family will be staying with her. She has 50 to 60% stenosis of carotid vessels, Dr. Calles not on-call over the weekend. We will give her referral for outpatient evaluation. She will be discharged with event monitor. Patient was recommended sleep study however she does not want to get CPAP or sleep study. This will put her at risk of recurrent falls and confusion especially in the morning. Physical Exam Narrative: EXAM NARRATIVE: Patient is awake and alert Nonfocal neuro exam Able to walk up to the bathroom with help of 1 nurse S1, S2 No audible stridor or wheezing Saturating well on room air Very pleasant and cooperative, immunoglobulin GCS 15 Distended abdomen, with obesity, nontender Discharge Data Data Completed and Pending: Completed Studies During Hospitalization Category Date Time Status CT angio headneck * [id number]/20612 Rout ine Cat Scan 06/01/21 09:[address] cervical spin wo con* [id number] Urge nt Cat Scan 05/31/21 22:[address] head wo con* 7 0450 Urgent Cat Scan 05/31/21 22:52 Completed XR chest 1V jordan ble [id number] Urgent Exams 05/31/21 22:52 Completed MR head wo con* 7 [id number] Routine MRI 06/01/21 14:30 Completed Pending at discharge Category Date Time Status Blood Culture Sta t Lab 06/01/21 11:48 Results Labs from last 24 hours 06/02/21 06/02/21 06/02/21 06:17 05:40 05:40 WBC 8.4 RBC 5.58 H Hgb 16.2 H Hct 49.6 H MCV 88.9 D MCH 29.0 MCHC 32.7 D RDW 13.2 Plt Count 176 MPV 10.2 Neut % (Auto) 47.2 Lymph % (Auto) 36.3 Shannon % (Auto) 9.5 Eos % (Auto) 5.7 Baso % (Auto) 0.8 Neut # (Auto) 3.96 Lymph # (Auto) 3.1 Shannon # (Auto) 0.8 Eos # (Auto) 0.5 Baso # (Auto) 0.1 Nucleated RBC % (a uto) 0 Nucleated RBCs # 0.0 Sodium 137 Potassium 4.5 Chloride 104 Carbon Dioxide 20 L Anion Gap 17.5 BUN 16 Creatinine 0.7 GFR Calculation Not Reportable Glucose 159 H POC Glucose 186 H Estimat Average Gl ucose Hemoglobin A1c Calculated Osmolal ity 289 Calcium 9.4 Total Bilirubin 0.7 AST 32 ALT 19 Alkaline Phosphata se 67 Ammonia Total Protein 6.3 L Albumin 3.4 L Globulin 2.9 Triglycerides Cholesterol LDL Cholesterol, C alc HDL Cholesterol LDL/HDL Ratio Cholesterol/HDL Ra silvestre 06/01/21 06/01/21 06/01/21 20:35 16:54 11:48 WBC RBC Hgb Hct MCV MCH MCHC RDW Plt Count MPV Neut % (Auto) Lymph % (Auto) Shannon % (Auto) Eos % (Auto) Baso % (Auto) Neut # (Auto) Lymph # (Auto) Shannon # (Auto) Eos # (Auto) Baso # (Auto) Nucleated RBC % (a uto) Nucleated RBCs # Sodium Potassium Chloride Carbon Dioxide Anion Gap BUN Creatinine GFR Calculation Glucose POC Glucose 269 H 354 H Estimat Average Gl ucose Hemoglobin A1c Calculated Osmolal ity Calcium Total Bilirubin AST ALT Alkaline Phosphata se Ammonia 28 Total Protein Albumin Globulin Triglycerides Cholesterol LDL Cholesterol, C alc HDL Cholesterol LDL/HDL Ratio Cholesterol/HDL Ra silvestre 06/01/21 06/01/21 05/31/21 11:46 06:05 23:43 WBC RBC Hgb Hct MCV MCH MCHC RDW Plt Count MPV Neut % (Auto) Lymph % (Auto) Shannon % (Auto) Eos % (Auto) Baso % (Auto) Neut # (Auto) Lymph # (Auto) Shannon # (Auto) Eos # (Auto) Baso # (Auto) Nucleated RBC % (a uto) Nucleated RBCs # Sodium Potassium Chloride Carbon Dioxide Anion Gap BUN Creatinine GFR Calculation Glucose POC Glucose 246 H Estimat Average Gl ucose 235 Hemoglobin A1c 9.8 H Calculated Osmolal ity Calcium Total Bilirubin AST ALT Alkaline Phosphata se Ammonia Total Protein Albumin Globulin Triglycerides 139 Cholesterol 140 LDL Cholesterol, C alc 79 HDL Cholesterol 33 L LDL/HDL Ratio 2.39 Cholesterol/HDL Ra silvestre 4.24 Vitals: Last Vital Signs Temp 98.1 F 06/02/21 04:00 Pulse 64 06/02/21 04:00 Resp 16 06/02/21 04:00 BP 186/82 06/02/21 04:00 Pulse Ox 95 06/02/21 04:00 Discharge Plan Discharge Patient Disposition: Home Condition: Stable Prescriptions: New aspirin 325 mg tablet 325 mg PO DAILY Qty: 90 RF: 3 atorvastatin 40 mg tablet 40 mg PO DAILY Qty: 90 RF: 2 Plavix 75 mg tablet 75 mg PO DAILY Qty: 20 RF: 0 Continued omeprazole 20 mg capsule,delayed release(DR/EC) 20 mg PO DAILY PRN (Reason: Heartburn) RF: 0 cholecalciferol (vitamin D3) 125 mcg (5,000 unit) capsule 125 mcg PO DAILY Qty: 90 RF: 0 nystatin 100,000 unit/gram powder 1 applic topical TID 30 Days Qty: 60 RF: 5 (DME) pen needle, diabetic 33 gauge x 5/32 needle See Rx Instructions .ROUTE .MEDSUPPLY Qty: 100 RF: 5 (DME) Diabetic shoes with inserts See Rx Instructions .Route .MEDSUPPLY Qty: 1 RF: 0 meclizine 25 mg tablet 25 mg PO .at bedtime Qty: 30 RF: 0 glipizide 10 mg tablet 10 mg PO BID Qty: 180 RF: 0 hydralazine 10 mg tablet 10 mg PO BID Qty: 180 RF: 0 Lantus Solostar U-100 Insulin 100 unit/mL (3 mL) insulin pen 30 unit SUBCUT QAM Qty: 15 RF: 2 levothyroxine 88 mcg tablet 88 mcg PO DAILY Qty: 90 RF: 0 losartan 100 mg tablet 100 mg PO DAILY Qty: 90 RF: 0 metoprolol tartrate 50 mg tablet 50 mg PO BID Qty: 180 RF: 0 potassium chloride 10 mEq tablet,ER particles/crystals 10 meq PO BID Qty: 180 RF: 0 venlafaxine 37.5 mg capsule,extended release 24hr 75 mg PO DAILY Qty: 180 RF: 0 Lasix 20 mg tablet See Rx Instructions .ROUTE .COMPLEX RF: 0 Discontinued atorvastatin [Lipitor] 20 mg tablet 20 mg PO BEDTIME RF: 0 aspirin 81 mg Tablet,Chewable 81 mg PO DAILY RF: 0 Discharge Orders: Discharge Order (Routine); Ordered 06/02/21 Ordered By: Anablea Nicole Other Ambulatory Orders: CA cardiac event monitor (Routine) Timeframe: 21 Days Facility: [facility] - Location: Cardiac Diagnostic Laboratory Ordered By: Anabela Nicole DME: Walker (Order) Location: None Selected Ordered By: Anabela Nicole Referrals: Jamie Brock FNP-C [Primary Care Provider] - 4-7 days Judson Calles MD [Physician] - 1 week Discharge Diet: Cardiac Discharge Activity: Increase activity as tolerated and Use walker/crutches as instructed Patient Instructions: Opioid Safety Discharge Attestations Time Spent in Discharge Care*: less than 30 min Quality Metrics Clinical Quality Measures During this hospital stay, did patient experience: Stroke Contraindication to Antithrombotic: Medical contraindication Contraindication to Anticoagulation: Anticoagulation prescribed Contraindication to Statin: Statin prescribed Contraindication to antithrombotic day 2: Medical contraindication Contraindication to tPA: Treatment not indicated Coding Level of Care Code Acute [facility] note Diagnoses Altered mental status R41.82 Dehydration E86.0 Diabetic feet E11.8 Diabetes mellitus with hyperglycemia, with long-term current use of insulin E11.65; Z79.4 Diabetes mellitus type: type 2 Vitamin D deficiency E55.9 Adult onset hypothyroidism E03.8 Generalized anxiety disorder F41.1 PAD (peripheral artery disease) I73.9 XIOMARA (obstructive sleep apnea) G47.33
[2021-06-02 11:14] LABS: Glucose Point of Care 277 mg/dL (70-110)
[2021-06-02 12:00] VITALS: BP 155/61; PULSE 65; RESP 18; TEMP 37.1; O2SAT 99
== END 2021-06-02 13:37 | disposition home health service (06) | DRG 65 ==
LOC: ER 06-01 03:40 → MEDSURG 06-01 03:43
PROVIDERS: Internal Medicine; Admitting Provider Student in an Organized Health Care Education/Training Program; Emergency Provider Emergency Medicine; PCP Nurse Practitioner; Visit Provider Student in an Organized Health Care Education/Training Program
DX: I63.40 Cerebral infarction due to embolism of unspecified cerebral artery (principal); G93.49 Other encephalopathy; R47.81 Slurred speech; R53.1 Weakness; I50.9 Heart failure, unspecified; I11.0 Hypertensive heart disease with heart failure; E78.5 Hyperlipidemia, unspecified; I25.2 Old myocardial infarction; E11.65 Type 2 diabetes mellitus with hyperglycemia; E11.51 Type 2 diabetes mellitus with diabetic peripheral angiopathy without gangrene; Z98.62 Peripheral vascular angioplasty status; E03.9 Hypothyroidism, unspecified; F03.90 Unspecified dementia, unspecified severity, without behavioral disturbance, psychotic disturbance, mood disturbance, and anxiety; K21.9 Gastro-esophageal reflux disease without esophagitis; M10.9 Gout, unspecified; H91.91 Unspecified hearing loss, right ear; Z85.3 Personal history of malignant neoplasm of breast; G47.33 Obstructive sleep apnea (adult) (pediatric); E55.9 Vitamin D deficiency, unspecified; E86.0 Dehydration; F41.1 Generalized anxiety disorder; R29.6 Repeated falls; Z79.4 Long term (current) use of insulin; Z79.84 Long term (current) use of oral hypoglycemic drugs
CPT/HCPCS: 36415; 36416; 36600; 70450; 70496; 70498; 70551; 71045; 72125; 80053; 80061; 80306; 81001; 82140; 82550; 82803; 82962; 83036; 83735; 83880; 84443; 84484; 85025; 87040; 87205; 87635; 92523; 92610; 93005; 96372; 97116; 97161; 99285; J1650; J1815 ×2; J7030; Q9967

== ENCOUNTER 2021-07-10 08:17 | Outpatient (CLI) | payer MEDICARE, OTHER, SELFPAY | END 2021-07-10 08:18 | disposition home or self-care (01) | LOC: WOUND 08:18 | PROVIDERS: PCP Nurse Practitioner; Visit Provider Thoracic Surgery (Cardiothoracic Vascular Surgery) | DX: I96 Gangrene, not elsewhere classified (principal); E11.621 Type 2 diabetes mellitus with foot ulcer; L97.422 Non-pressure chronic ulcer of left heel and midfoot with fat layer exposed | CPT/HCPCS: 11042; 99214 ==

== ENCOUNTER 2021-07-17 09:27 | Outpatient (CLI) | payer MEDICARE, OTHER, SELFPAY | END 2021-07-17 09:28 | disposition home or self-care (01) | PROVIDERS: PCP Nurse Practitioner; Visit Provider Thoracic Surgery (Cardiothoracic Vascular Surgery) | DX: E11.621 Type 2 diabetes mellitus with foot ulcer (principal); L97.422 Non-pressure chronic ulcer of left heel and midfoot with fat layer exposed | CPT/HCPCS: 11042 ==

== ENCOUNTER 2021-07-24 09:03 | Outpatient (CLI) | payer MEDICARE, OTHER, SELFPAY | END 2021-07-24 09:04 | disposition home or self-care (01) | LOC: WOUND 09:07 | PROVIDERS: PCP Nurse Practitioner; Visit Provider Thoracic Surgery (Cardiothoracic Vascular Surgery) | DX: E11.621 Type 2 diabetes mellitus with foot ulcer (principal); L97.422 Non-pressure chronic ulcer of left heel and midfoot with fat layer exposed | CPT/HCPCS: 97597 ==

== ENCOUNTER 2021-07-31 09:22 | Outpatient (CLI) | payer MEDICARE, OTHER, SELFPAY | END 2021-07-31 09:23 | disposition home or self-care (01) | LOC: WOUND 09:23 | PROVIDERS: PCP Nurse Practitioner; Visit Provider Thoracic Surgery (Cardiothoracic Vascular Surgery) | DX: E11.621 Type 2 diabetes mellitus with foot ulcer (principal); L97.422 Non-pressure chronic ulcer of left heel and midfoot with fat layer exposed; I96 Gangrene, not elsewhere classified | CPT/HCPCS: 97597 ==

== ENCOUNTER 2021-08-07 09:13 | Outpatient (CLI) | payer MEDICARE, OTHER, SELFPAY | END 2021-08-07 09:14 | disposition home or self-care (01) | LOC: WOUND 09:14 | PROVIDERS: PCP Nurse Practitioner; Visit Provider Thoracic Surgery (Cardiothoracic Vascular Surgery) | DX: E11.621 Type 2 diabetes mellitus with foot ulcer (principal); L97.522 Non-pressure chronic ulcer of other part of left foot with fat layer exposed | CPT/HCPCS: 97597 ==

== ENCOUNTER 2021-08-14 13:22 | Outpatient (CLI) | payer MEDICARE, OTHER, SELFPAY ==
--- NOTE | 2021-08-14 13:32 | USCV_ITS ---
Raine Glover Age: 80 Gender: F : 1940 Exam Date: 08/14/2021 14:45 Ordering Phys: Judson Calles MD (Andy) ([email or web address]) Technologist: Alonzo Awad [place] [facility] [place]: left leg pain/ diabetic foot ulcer Risk Factors: Previous Vascular Surgery: RIGHT LEFT BP: / BP: 183.0/ 76.00 0 Waveform Velocity (cm/s) Velocity (cm/s) Waveform Triphasic 103.6 Iliac Prox 96.2 Triphasic Triphasic 101.0 Iliac Mid 105.9 Triphasic Triphasic 174.0 Iliac Distal 102.9 Triphasic Monophasic 61.5 BANKRUPTCY PARALEGAL 95.9 Monophasic Monophasic 86.3 SFA Prox 76.1 Monophasic Monophasic 40.2 SFA Mid 93.2 Monophasic Monophasic 82.0 SFA Dist 113.6 Monophasic Monophasic 66.7 POP 83.8 Monophasic Monophasic 59.8 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 Mild to moderate diffuse plaques in the iliac and femoral arteries bilaterally CONCLUSIONS Abnormal resting FIDEL, consistent with moderate peripheral artery disease on the right side Abnormal resting FIDEL consistent with mild peripheral artery disease in the left side Mild to moderate diffuse plaques in the iliac and femoral arteries bilaterally Consider exercise FIDEL, to better evaluate the functional status, if clinically indicated Dr Cecelia Araya MD [facility] (Electronically Signed) Final Date: 17 August 2021 23:41 S
== END 2021-08-14 13:23 | disposition home or self-care (01) ==
PROVIDERS: PCP Nurse Practitioner; Visit Provider Thoracic Surgery (Cardiothoracic Vascular Surgery)
DX: E11.621 Type 2 diabetes mellitus with foot ulcer (principal); M79.662 Pain in left lower leg; I70.8 Atherosclerosis of other arteries; I96 Gangrene, not elsewhere classified; L89.622 Pressure ulcer of left heel, stage 2
CPT/HCPCS: 11042; 93925

== ENCOUNTER → 2021-08-21 09:07 | Outpatient (BNVA) | payer MEDICARE, OTHER, SELFPAY | PROVIDERS: PCP Nurse Practitioner; Visit Provider Thoracic Surgery (Cardiothoracic Vascular Surgery) | DX: E11.621 Type 2 diabetes mellitus with foot ulcer (principal); I96 Gangrene, not elsewhere classified; L97.422 Non-pressure chronic ulcer of left heel and midfoot with fat layer exposed | CPT/HCPCS: 97597 ==

== ENCOUNTER → 2021-08-24 13:37 | Outpatient (BNVA) | payer MEDICARE, OTHER, SELFPAY | PROVIDERS: PCP Nurse Practitioner; Visit Provider Internal Medicine Cardiovascular Disease | DX: I11.0 Hypertensive heart disease with heart failure (principal); I50.9 Heart failure, unspecified; B37.2 Candidiasis of skin and nail; I73.9 Peripheral vascular disease, unspecified; E11.65 Type 2 diabetes mellitus with hyperglycemia; Z79.4 Long term (current) use of insulin | CPT/HCPCS: 99215 ==

== ENCOUNTER → 2021-08-31 15:25 | Outpatient (BNVA) | payer MEDICARE, OTHER, SELFPAY | PROVIDERS: PCP Nurse Practitioner; Visit Provider Nurse Practitioner | DX: E11.65 Type 2 diabetes mellitus with hyperglycemia (principal); Z79.4 Long term (current) use of insulin | CPT/HCPCS: 83036; 85025 ==

== ENCOUNTER 2021-09-13 06:01 | Outpatient (CLI) | payer MEDICARE, OTHER, SELFPAY ==
[2021-09-11 12:23] LABS: Basophils # 0.1 10^3/uL (0.0-0.1); Basophils % 0.7 %; Eosinophils # 0.3 10^3/uL (0.0-0.8); Eosinophils % 3.4 %; Hematocrit 49.3 % (37.0-47.0); Hemoglobin 15.7 g/dL (11.5-15.3); Lymphocytes # 2.2 10^3/uL (0.8-4.8); Lymphocytes % 28.8 %; Mean Corpuscular HGB Conc 31.8 g/dL (30.0-36.0); Mean Corpuscular Hemoglobin 28.5 pg (28.0-34.0); Mean Corpuscular Volume 89.5 fl (81-99); Mean Platelet Volume 10.8 fL (7.4-10.4); Monocytes # 0.7 10^3/uL (0.2-0.9); Monocytes % 9.9 %; Neutrophils # 4.25 10^3/uL (1.8-7.7); Neutrophils % 56.9 %; Nucleated Red Blood Cells % 0 %; Platelet Count 211 10^3/cmm (130-400); Red Blood Count 5.51 10^6/uL (4.1-5.3); Red Cell Distribution Width 13.5 % (12.1-15.1); White Blood Count 7.5 10^3/uL (4.0-10.0)
[2021-09-11 12:52] LABS: INR 0.98 (0.83-1.21); Prothrombin Time (Patient) 13.2 Seconds (12.0-15.1)
[2021-09-11 12:56] LABS: Anion Gap 17.6 (5-19); Blood Urea Nitrogen 34 mg/dL (8-23); Calcium 9.5 mg/dL (8.5-10.5); Carbon Dioxide 23 mmol/L (22-29); Chloride 98 mmol/L (98-107); Glucose 199 mg/dL (65-115); Osmolality Calculated 291 mOsm/kg (285-295); Potassium 4.6 mmol/L (3.5-5.1); Sodium 134 mmol/L (136-145)
[2021-09-13] VITALS (30 sets, daily range): BP systolic 110–202; BP diastolic 53–143; PULSE 67–88; RESP 13–23; TEMP 36.4–36.9; O2SAT 92–99; BMI 33.7
--- NOTE | 2021-09-13 06:00 | XACV_ITS ---
Ht: 150 cm Wt: 76 kg BSA: 1.81 m2 Any Known Allergies: Other Gender: Female : 1940 Exam Type: Invasive Peripheral Vascular Procedure(s): Procedure Description: Peripheral Cath Diagnostic Procedure Procedure Description: Abdominal aortic angiography Procedure Description: Lower extremities' angiography Exam Priority: Routine Abdominal Diagnostic Findings The abdominal aorta, aside from some mild plaquing, is essentially normal. Lower Extremity Diagnostic Findings On the left, common iliac, external iliac, internal iliac and common femoral arteries are normal. The superficial femoral artery is normal proximally but as it moves towards the popliteal artery, there is moderate diffuse disease. In the distal SFA, there is a 50 to 60% stenosis. The distal SFA is then occluded shortly after the popliteal origin. There is essentially no runoff beyond this. There are 2 collateral branches which extend distally. Both of these are very small and fill the anterior tibial and posterior tibial very minimally. On the right, the common iliac, external iliac, internal iliac and common femoral arteries are all normal and patent. The profunda femoris is patent and provides some minor collateral flow down below the knee. The superficial femoral artery is normal proximally and as it moves distally is mildly to moderately stenosed. There is a 99% stenosis in the mid popliteal. The popliteal then extends below the knee. The distal extension of the popliteal artery is the anterior tibial artery which is seen minimally until it is occluded. There is some reconstitution of the anterior tibial from collateral flow from both the profunda femoris and the superficial femoral artery. The most distal extension of the popliteal is the peroneal artery. This is seen fairly well all the way to the ankle. The posterior tibial is occluded shortly after its origin. Conclusions Severe infrapopliteal disease on the bilateral lower extremities. On the left, no intervention is available since there is no flow below the popliteal vessel. On the right there may be the opportunity to provide balloon angioplasty of the mid popliteal as there is runoff to the peroneal below and some collateral flow to the anterior tibial. Recommendations Medical treatment. Consider intervention to the mid popliteal artery. Hemodynamic Data Phase:Rest AO : 184.0 / 59.0 ( 101.0 ) @ 8:58:00 AM Access Site Site: Right Femoral artery Sheath Size: 6 Fr Hemost... Method: Mechanical Compression Hemost... Success: Successful Procedure Details Findings Procedure Consent Obtained. Pre-Procedure Time Out. Identified patient by full name and date of as verbalized by the patient/guarantor. Does the consent match the physician's order: Yes. Accurate & Complete Informed Consent: Yes. Inpatient/Outpatient History & Physical on Chart: Yes. If H&P is completed, is and addenduem needed: N/A; If yes, is the addendum complete: N/A. Visualize and Verify Site with Patient/Guarantor: N/A. Relevant Radiology Images available: N/A. Pre-op teaching completed and patient verbalized understanding. The risks, benefits, and alternatives of sedation and/or procedure were discussed by physician. The patient agrees to continue. Procedure started. Flakeboard Line Tender Indications:PVD. Correct patient, site and procedure confirmed by cath team. Current diagnosis: PVD. PERRLA. Strong, equal hand content architect bilaterally. Lungs clear x 5 lobes. IV Site on Arrival: 22 gauge in the left anticubital. IV Fluids: 0.9% NaCl at KVO. 0 mL infused prior to rn lab. Pre Procedural Pulses: bilateral posterior tibial was Doppled. Pre Procedural Pulses: bilateral dorsalis pedis was Doppled. Oxygen started at 2liters/min via nasal canula. right groin was prepped with chloroprep then draped in the usual sterile fashion. left groin was prepped with chloroprep then draped in the usual sterile fashion. Physician notified. Baseline sample Acquired. HR: 75 BPM. Admit Source: Out Patient. Physician arrived. Physician scrubbed in. Immediate Pre-Procedure Time Out. Correct Patient: Yes; Correct Procedure: Yes; Correct Site: Yes; Correct Patient Position: Yes; Correct Supplies: Yes; Dried Flammable Prep: Yes; Blood Products Available: n/a. Lidocaine 1% infiltrated to the right groin. Arterial access obtained with micropuncture set. A 5Fr UF catheter in over wire. Abdominal aortogram performed in AGUIAR @ 10 mL/sec for a total of 30 mL. Catheter removed over the standard wire. A 5FrFr RIM catheter in over wire. Left superficial femoral selected and arteriogram with runoff performed @ 10 mL/sec for a total of 30 mL. Catheter out. Sheath injected in Right common femoral artery and runoff performed. A Mechanical Compression was successful obtaining hemostatsis at the Right Femoral artery insertion site. PERRLA. Strong, equal hand content architect bilaterally. No VTE prophylaxis required. Medication's Wasted: Lidocaine 1% = 1 mL. Medication's Wasted: Other = Fentanyl 50 mcg. Total IV fluids: 37 mL. Complications: none. Post-op diagnosis: PVD. Estimated blood loss: 5mL-10mL. Responsiveness - Normal response to verbal stimuli; alert and oriented, PERRLA. Airway - Unaffected, no intervention required; spontaneous ventilation. Circulation: W/N/L, pulses unchanged. Nausea/Vomiting: No. Procedure completed. Patient transferred by bed to CPRU. Medication's Wasted: Heparin = 1000 u. Vital chart was stopped. Procedure Medications Start: 7:45 AM Stop: 7:45 AM Medication: Fentanyl Amount: 50 mcg Route: I.V. Start: 7:45 AM Stop: 7:45 AM Medication: Versed Amount: 1 mg Route: I.V. Start: 7:45 AM Stop: 7:45 AM Medication: Benadryl Amount: 25 mg Route: I.V. Start: 8:15 AM Stop: 8:15 AM Medication: Hydralazine Amount: 10 mg Route: I.V. Start: 8:24 AM Stop: 8:24 AM Medication: Hydralazine Amount: 10 mg Route: I.V. Start: 8:32 AM Stop: 8:32 AM Medication: Lopressor (metoprolol) Amount: 5 mg Route: I.V. I, the attending physician, have reviewed and verified all procedure medications. Yes, all medications given per verbal order History/Risk Factors Hypertension: Yes Dyslipidemia: No Peripheral Arterial Disease (PAD): Yes Myocardial Infarction (CT): Yes Obesity: Yes Renal Disease: No Tobacco Use: Never Prior Interventions PCI: No CABG: No Valve Surgery: No Report Signatures Finalized by Dr. Mark Mena MD on 09/13/2021 08:37 AM
[2021-09-13 07:31] LABS: Blood Urea Nitrogen 28 mg/dL (8-23); Calcium 8.9 mg/dL (8.5-10.5); Carbon Dioxide 23 mmol/L (22-29); Chloride 102 mmol/L (98-107); Glucose 179 mg/dL (65-115); Osmolality Calculated 292 mOsm/kg (285-295); Sodium 136 mmol/L (136-145)
[2021-09-13 07:32] LABS: Anion Gap 15.4 (5-19); Potassium 4.4 mmol/L (3.5-5.1)
--- NOTE | 2021-09-13 08:45 | PC.NURSE ---
received pt from [facility] post peripheral. pt complaining of pain in left legs post procedure. pt instructed she can move it to allow relief. no relief noted. notified and received orders for Ativan. pt hooked to monitor and will be monitored per protocol. dressing in place on right groin, dry and intact. room dimmed to help with the pain and allowing distraction. meds to be administer as soon as pharmacy brings to nurse.
[2021-09-13] MEDS: LORazepam 2 mg/mL INJ 1 mL 0.5 MG IVP ×2 (09:10→09:45)
--- NOTE | 2021-09-13 10:55 | PC.NURSE ---
small bruise noted. dr notified and came to see. nurse to continue to monitor.
--- NOTE | 2021-09-13 14:42 | PC.NURSE ---
WASTED A TOTAL OF 3 MG OF LORAZEPAM WITH SHEREEN GIORDANO RN.
--- NOTE | 2021-09-13 15:10 | SUR.PHASEII ---
POST CATH AMBULATION PATIENT UP, AMBULATED AROUND THE UNIT. No change to assessment in right groin- still hemostatic. Sat up in chair. No c/o voiced at this time.Call light in reach. Informed to call for needs.
--- NOTE | 2021-09-13 15:12 | SUR.PHASEII ---
Bed not available on [facility] [employer] 256-2. Report called to med surge floor. Patient up ambulatory at this point. vs stable and set to routine. Report called to broker in charge. Taken via wheelchair. No changes in assesment or vital signs at this time. Condition stable.
--- NOTE | 2021-09-13 16:06 | SUR.PHASEII ---
TRANSFER Patient taken to [facility] pending discharge. Son arrived and requested to speak with Procedure MD about the results of today's exam. Notified MD who states that he will be in clinic for another hour, but if they want to wait he will talk with them when he is done. The patient/son are agreeable to wait. Taken to IN via wheelchair. Groin unchanged from prior assessment. Report to Telma DAILEY.
--- NOTE | 2021-09-14 06:23 | PM.MISC ---
Miscellaneous Note Note: Raine underwent lower extremity angiography on September 13. This was for the purposes of evaluating her known peripheral arterial disease. She has significant discomfort in both legs below the knee. She informs me that her left leg was worse than her right leg. The procedure was performed via the right common femoral artery. On the left, the iliacs, common femoral artery, profunda femoris and SFA were largely normal. Toward the distal end of the left SFA there was mild to moderate diffuse disease. At the origin of the popliteal vessel, the vessel was occluded. There is no flow below the popliteal. There are 2 small collateral branches which arise from the SFA that supplies some very minimal blood flow below the knee. On the right, a similar picture is noted. The iliacs, common femoral, profunda, SFA are largely normal. There is a 95% stenosis of the popliteal at the level of the knee joint. Beyond this the anterior tibial artery is occluded and the posterior tibial artery is occluded. The popliteal extends distally as the peroneal all the way down to the ankle. Patient developed a very small hematoma when the sheath was pulled. She also has significant pain and spasm in the left leg likely related to the contrast material and the lack of any significant flow below the knee. We had to treat her with benzodiazepines in order to relieve the spasm. There is clearly nothing that can be done on the left. Should significant pain, critical limb ischemia or insufficient healing of an ulcer occur on the right occur, 1 could consider doing an angioplasty of the popliteal artery at the level of the knee. Otherwise, there is no significant runoff available for a bypass. She will be seen in a week for assessment of the right groin and her kidney function as she has chronic renal insufficiency. I told her to decrease her aspirin from 325 mg daily to 81 mg daily and continue her other medications as prescribed.
== END 2021-09-13 16:35 | disposition home or self-care (01) ==
LOC: CCL 12:18 → MEDSURG 15:51
PROVIDERS: PCP Nurse Practitioner; Visit Provider Internal Medicine Cardiovascular Disease
DX: I73.9 Peripheral vascular disease, unspecified (principal); E11.65 Type 2 diabetes mellitus with hyperglycemia; Z79.4 Long term (current) use of insulin; I11.0 Hypertensive heart disease with heart failure; I50.30 Unspecified diastolic (congestive) heart failure; E11.622 Type 2 diabetes mellitus with other skin ulcer; Z85.3 Personal history of malignant neoplasm of breast; G47.33 Obstructive sleep apnea (adult) (pediatric); Z91.14 Patient's other noncompliance with medication regimen; Z86.73 Personal history of transient ischemic attack (TIA), and cerebral infarction without residual deficits
CPT/HCPCS: 36415; 51702; 75625; 75716; 80048; 85025; 85610; 96360; 96361; 99152; 99153; C1769; C1887; C1894; J0360; J1200; J1644; J2060; J2250; J3010; J3490; J7030; Q9967

== ENCOUNTER → 2021-09-22 10:00 | Outpatient (BNVA) | payer MEDICARE, OTHER, SELFPAY | PROVIDERS: PCP Nurse Practitioner; Visit Provider Nurse Practitioner Family | DX: I73.9 Peripheral vascular disease, unspecified (principal) | CPT/HCPCS: 80048; 99213; 99214 ==

== ENCOUNTER → 2021-09-26 15:29 | Outpatient (BNVA) | payer MEDICARE, OTHER, SELFPAY | PROVIDERS: PCP Nurse Practitioner; Visit Provider Nurse Practitioner | DX: E11.65 Type 2 diabetes mellitus with hyperglycemia (principal); Z79.4 Long term (current) use of insulin; I10 Essential (primary) hypertension; E03.8 Other specified hypothyroidism; I50.9 Heart failure, unspecified; F41.1 Generalized anxiety disorder | CPT/HCPCS: 80053; 80061; 83036; 84443 ==

== ENCOUNTER → 2021-10-23 12:06 | Outpatient (BNVA) | payer MEDICARE, OTHER, SELFPAY | PROVIDERS: PCP Nurse Practitioner; Visit Provider Internal Medicine Cardiovascular Disease | DX: I73.9 Peripheral vascular disease, unspecified (principal); I13.0 Hypertensive heart and chronic kidney disease with heart failure and stage 1 through stage 4 chronic kidney disease, or unspecified chronic kidney disease; I50.9 Heart failure, unspecified; N18.9 Chronic kidney disease, unspecified; E11.22 Type 2 diabetes mellitus with diabetic chronic kidney disease; Z79.4 Long term (current) use of insulin; E11.65 Type 2 diabetes mellitus with hyperglycemia; D69.6 Thrombocytopenia, unspecified | CPT/HCPCS: 99214 ==

== ENCOUNTER 2022-01-10 10:54 | Emergency (ER) | payer MEDICARE, OTHER, SELFPAY ==
[2022-01-10 11:07] VITALS: BP 120/96; PULSE 106; RESP 16; TEMP 37; O2SAT 94; BMI 35.3
[2022-01-10 11:11] VITALS: BP 118/90; PULSE 98; RESP 16; TEMP 37; O2SAT 95
--- NOTE | 2022-01-10 11:14 | XRR_ITS ---
PROCEDURE INFORMATION: Exam: XR Chest Exam date and time: 01/10/2022 11:26 AM Age: 81 years old Clinical indication: Cough and shortness of breath; Patient HX: Soreness in throat pain, crackle sounds when breathing, cough. PT was brought in because she was not answering when people were speaking to her; Additional info: SOB TECHNIQUE: Imaging protocol: Radiologic exam of the chest. Views: 1 view. COMPARISON: CR XR chest 1V portable [id number] 05/31/2021 10:56 PM FINDINGS: Lungs: Unremarkable. No consolidation. Pleural spaces: Unremarkable. No pleural effusion. No pneumothorax. Heart/Mediastinum: Unremarkable. No cardiomegaly. Bones/joints: Unremarkable. XR/XR chest 1V [id number] IMPRESSION: No acute findings.
[2022-01-10] MEDS: sodium chloride 0.9% 500 ML 999 ML IV (11:40)
[2022-01-10 11:41] VITALS: O2SAT 94
--- NOTE | 2022-01-10 11:43 | ED_ITS ---
HPI - COVID General: Chief Complaint: COVID symptoms Stated Complaint: weakness Time Seen by Provider: 01/10/22 11:07 Triage information: Has fever, cough or shortness of breath . No known COVID + exposure last 14 days History of Present Illness: 81-year-old female who is COVID-positive presenting today with fever cough body aches and shortness of breath. Patient notes over all symptoms for about 48 hours. Symptoms have been constant. She notes that she has difficulty breathing secondary to the pain she feels with deep inhalation. She has no history of blood clots. She denies pain or swelling her lower extremities. She denies recent travel or recent surgeries. COVID Results: SARS-CoV-2 Antigen (Rapid) Negative (Negative) 05/18/20 12:01 SARS-CoV-2 (PCR) Not detected (NOT DETECT) 06/01/21 05:00 Coronavirus Type 229E (PCR) Not detected (NOT DETECT) 06/01/21 05:00 Review of Systems General: Reports: 10 or more systems reviewed and unremarkable except in HPI and below PFSH ED PFSH: Medical History Adult onset hypothyroidism CHF (congestive heart failure) Diabetes mellitus with hyperglycemia, with long-term current use of insulin Diabetic feet Generalized anxiety disorder GERD (gastroesophageal reflux disease) Gout Hearing loss right ear History of breast cancer HTN (hypertension) Non compliance w medication regimen XIOMARA (obstructive sleep apnea) PAD (peripheral artery disease) Status post angioplasty of lower extremities bilaterally as per the patient Urinary bladder disorder wears attends Vitamin D deficiency Surgical History S/P cataract extraction S/P hysterectomy S/P lumpectomy of breast Right Family History Grandmother Cancer BREAST Social History Smoking and tobacco status: never smoked Second hand smoke exposure: No Smoking risk assessment/counseling performed?: No Alcohol intake: never Desire information about alcohol rehabilitation?: No Counseling given: No Desire information about substance/drug rehabilitation?: No Counseling given: No Adopted: No Caregiver/support person: No Lives independently: Yes Household members: none Housing: House Marital status: / Number of children: 1 Number of grandchildren: 1 Highest education level completed: High School Graduate service: No Current occupational status: retired Pets and animals: Yes Pets & animals: dog(s) History of recent travel: No Current gender identity: Female Special sydnie needs: No Physical Exam Const: COMMON NORMALS: no acute distress, patient oriented x3 and alert GENERAL APPEARANCE: cooperative ORIENTATION/CONSCIOUSNESS: Yes awake, Yes oriented to person, Yes oriented to place and Yes oriented to time HENMT: COMMON NORMALS: normocephalic, atraumatic, external ears normal, Normal external nose present and moist oral mucous membranes HEAD & SCALP: normal to inspection, normocephalic and atraumatic NOSE: Normal external nose present GENERAL EAR: hearing grossly impaired EXTERNAL EAR: Yes external ears normal Eye: COMMON NORMALS: Equal, round and reactive pupils present, EOMs intact bilaterally, conjunctivae normal and no scleral icterus GENERAL EYE: appearance normal, both eyes and all related structures EYELID: eyelids normal CONJUNCTIVA: Yes conjunctivae normal SCLERA: sclerae normal PUPIL: Yes Equal, round and reactive pupils present Neck/C-Spine: COMMON NORMALS: full ROM, supple and no JVD GENERAL: Yes normal visual inspection Lymph: LYMPHATIC: no lymphadenopathy noted and no lymphedema noted Chest: COMMONS NORMALS: normal inspection of the chest Resp: COMMON NORMALS: normal respiratory effort, No retractions and No use of accessory muscles Cardio: COMMON NORMALS: no JVD, regular rate and regular rhythm RATE: regular rate RHYTHM: regular rhythm GI: COMMON NORMALS: Normal to inspection, nondistended, normoactive bowel sounds present : COMMON NORMALS: Yes no CVA tenderness BLADDER/KIDNEY EXAM: Yes no CVA tenderness Back/Pelvis: COMMON NORMALS: no CVA tenderness and thoracic and lumbar spine normal to inspection Extremity: COMMON NORMALS: normal to inspection, full ROM and capillary refill normal GENERAL: Yes normal exam except as noted Neuro: COMMON NORMALS: patient oriented x3, CN's II-XII intact bilaterally, moves all extremities, no focal motor deficits, no sensory deficits noted and gait normal SENSORIUM/ORIENTATION: Yes alert, Yes oriented to person, Yes oriented to place and Yes oriented to time Psych: COMMON NORMALS: mental status grossly normal, Normal thought process present, cooperative and normal affect THOUGHT PROCESS: Normal thought process present Skin: COMMON NORMALS: no rashes or lesions noted and no wounds GENERAL SKIN EXAM: no rashes or lesions noted Course Vital Signs: Vital signs: Vital Signs Temperature 98.6 F 01/10/22 11:11 Pulse Rate 98 01/10/22 11:11 Respiratory Rate 16 01/10/22 11:11 Blood Pressure 118/90 01/10/22 11:11 Pulse Oximetry 94 01/10/22 11:41 Oxygen Delivery Me thod 01/10/22 11:41 MDM - COVID Medical Decision Making 81-year-old female presenting today with shortness of breath known COVID- positive. Chest x-ray is unremarkable. Patient's vital signs are within normal limits. No need for accessory oxygen. CBC with leukocytosis but no significant anemia.. CMP with slight hyponatremia. Otherwise unremarkable. Patient was given strict return precautions and expected course of COVID symptoms. And recommended routine outpatient follow-up Lab Data : 01/10/22 13:00 01/10/22 13:00 Radiology Impressions Chest X-Ray 01/10/22 11:14 IMPRESSION: No acute findings. Laboratory Results WBC 8.3 10^3/uL (4.0-10.0) 01/10/22 13:00 RBC 5.51 10^6/uL (4.1-5.3) H 01/10/22 13:00 Hgb 15.6 g/dL (11.5-15.3) H 01/10/22 13:00 Hct 48.3 % (37.0-47.0) H 01/10/22 13:00 MCV 87.7 fl (81-99) 01/10/22 13:00 MCH 28.3 pg (28.0-34.0) 01/10/22 13:00 MCHC 32.3 g/dL (30.0-36.0) 01/10/22 13:00 RDW 13.6 % (12.1-15.1) 01/10/22 13:00 Plt Count 174 10^3/cmm (130-400) 01/10/22 13:00 MPV 11.1 fL (7.4-10.4) H 01/10/22 13:00 Neut % (Auto) 75.0 % 01/10/22 13:00 Lymph % (Auto) 14.6 % 01/10/22 13:00 Tyler % (Auto) 10.1 % 01/10/22 13:00 Eos % (Auto) 0.0 % 01/10/22 13:00 Baso % (Auto) 0.2 % 01/10/22 13:00 Neut # (Auto) 6.23 10^3/uL (1.8-7.7) 01/10/22 13:00 Lymph # (Auto) 1.2 10^3/uL (0.8-4.8) 01/10/22 13:00 Tyler # (Auto) 0.8 10^3/uL (0.2-0.9) 01/10/22 13:00 Eos # (Auto) 0.0 10^3/uL (0.0-0.8) 01/10/22 13:00 Baso # (Auto) 0.0 10^3/uL (0.0-0.1) 01/10/22 13:00 Nucleated RBC % (auto) 0 % 01/10/22 13:00 Nucleated RBCs # 0.0 /100WBC 01/10/22 13:00 D-Dimer 0.93 ug/mIFEU (0-0.59) H 01/10/22 13:00 Sodium 130 mmol/L (136-145) L 01/10/22 13:00 Potassium 4.5 mmol/L (3.5-5.1) 01/10/22 13:00 Chloride 90 mmol/L (98-107) L 01/10/22 13:00 Carbon Dioxide 28 mmol/L (22-29) 01/10/22 13:00 Anion Gap 16.5 (5-19) 01/10/22 13:00 BUN 12 mg/dL (8-23) 01/10/22 13:00 Creatinine 0.9 mg/dL (0.5-0.9) 01/10/22 13:00 GFR Calculation Not Reportable 01/10/22 13:00 Glucose 221 mg/dL (65-115) H 01/10/22 13:00 Calculated Osmolality 277 mOsm/kg (285-295) L 01/10/22 13:00 Lactic Acid 1.7 mmol/L (0.5-2.2) 01/10/22 13:00 Calcium 9.2 mg/dL (8.5-10.5) 01/10/22 13:00 Total Bilirubin 0.4 mg/dL (0.15-1.2) 01/10/22 13:00 AST 38 U/L (0-32) H 01/10/22 13:00 ALT 32 U/L (0-33) 01/10/22 13:00 Alkaline Phosphatase 69 U/L (35-105) 01/10/22 13:00 C-Reactive Protein 9.1 mg/L (0.0-4.9) H 01/10/22 13:00 Total Protein 7.8 g/dL (6.6-8.7) 01/10/22 13:00 Albumin 4.0 g/dL (3.5-5.2) 01/10/22 13:00 Globulin 3.8 g/dL (1.3-4.6) 01/10/22 13:00 SARS-CoV-2 Antigen (Rapid) Negative (Negative) 05/18/20 12:01 SARS-CoV-2 (PCR) Not detected (NOT DETECT) 06/01/21 05:00 Coronavirus Type 229E (PCR) Not detected (NOT DETECT) 06/01/21 05:00 Discharge Plan Discharge Patient Disposition: Home Clinical Impression: COVID Condition: Stable Prescriptions: No Action cholecalciferol (vitamin D3) 125 mcg (5,000 unit) capsule 125 mcg PO DAILY Qty: 90 0RF (DME) pen needle, diabetic 33 gauge x 5/32 needle See Rx Instructions .ROUTE .MEDSUPPLY Qty: 100 5RF Rx Instructions: 1 time day (DME) Diabetic shoes with inserts See Rx Instructions .Route .MEDSUPPLY Qty: 1 0RF Rx Instructions: As directed nystatin 100,000 unit/gram powder 1 applic topical TID PRN (Reason: yeast dermatitis) Rx Instructions: large area, bilateral breasts, pannus for 30 days, dated 03/24/21 Plavix 75 mg tablet 75 mg PO DAILY Qty: 90 0RF hydralazine 10 mg tablet 10 mg PO BID Qty: 180 0RF glipizide 10 mg tablet 10 mg PO BID Qty: 180 0RF levothyroxine 88 mcg tablet 88 mcg PO DAILY Qty: 90 0RF losartan 100 mg tablet 100 mg PO DAILY Qty: 90 0RF Lantus Solostar U-100 Insulin 100 unit/mL (3 mL) insulin pen 40 unit SUBCUT QAM Qty: 15 2RF metoprolol tartrate 50 mg tablet 50 mg PO BID Qty: 180 0RF potassium chloride 10 mEq tablet,ER particles/crystals 10 meq PO DAILY Qty: 90 0RF Rx Instructions: take with lasix venlafaxine 37.5 mg capsule,extended release 24hr 75 mg PO DAILY Qty: 180 0RF furosemide [Lasix] 20 mg tablet 20 mg PO DAILY Qty: 90 0RF aspirin [Adult Aspirin Regimen] 81 mg tablet,delayed release (DR/EC) 81 mg PO DAILY Qty: 90 0RF (DME) nebulizers Misc See Rx Instructions .ROUTE .MEDSUPPLY Qty: 1 0RF Rx Instructions: As directed albuterol sulfate 2.5 mg /3 mL (0.083 %) solution for nebulization 2.5 mg inhalation Q6H PRN (Reason: shortness of breath or wheezing) Qty: 75 3RF atorvastatin 40 mg tablet 20 mg PO DAILY ferrous sulfate 325 mg (65 mg iron) tablet 325 mg PO DAILY Discharge Orders: Discharge ED (Routine); Ordered 01/10/22 Ordered By: Saleem Bales Referrals: Jamie Brock, [employer] [Primary Care Provider] - Discharge Diet: Advance as tolerated Discharge Activity: Resume usual activity Patient Instructions: COVID-19 (Coronavirus Disease 2019) (ED) Coding Level of Care Code ED [employer] for Kenny Fwd Exam Comprehensive
[2022-01-10 14:04] LABS: Basophils % 0.2 %; Hematocrit 48.3 % (37.0-47.0); Hemoglobin 15.6 g/dL (11.5-15.3); Lymphocytes # 1.2 10^3/uL (0.8-4.8); Lymphocytes % 14.6 %; Mean Corpuscular HGB Conc 32.3 g/dL (30.0-36.0); Mean Corpuscular Hemoglobin 28.3 pg (28.0-34.0); Mean Corpuscular Volume 87.7 fl (81-99); Mean Platelet Volume 11.1 fL (7.4-10.4); Monocytes # 0.8 10^3/uL (0.2-0.9); Monocytes % 10.1 %; Neutrophils # 6.23 10^3/uL (1.8-7.7); Nucleated Red Blood Cells % 0 %; Platelet Count 174 10^3/cmm (130-400); Red Blood Count 5.51 10^6/uL (4.1-5.3); Red Cell Distribution Width 13.6 % (12.1-15.1); White Blood Count 8.3 10^3/uL (4.0-10.0)
[2022-01-10 14:09] LABS: D Dimer 0.93 ug/mIFEU (0-0.59)
[2022-01-10 14:12] LABS: Alanine Aminotransferase 32 U/L (0-33); Alkaline Phosphatase 69 U/L (35-105); Anion Gap 16.5 (5-19); Aspartate Amino Transferase 38 U/L (0-32); Blood Urea Nitrogen 12 mg/dL (8-23); C Reactive Protein 9.1 mg/L (0.0-4.9); Calcium 9.2 mg/dL (8.5-10.5); Carbon Dioxide 28 mmol/L (22-29); Chloride 90 mmol/L (98-107); Creatinine Clr Calc Pharmacy 63.5154; Globulin 3.8 g/dL (1.3-4.6); Glucose 221 mg/dL (65-115); Lactic Sepsis W/Reflex 1.7 mmol/L (0.5-2.2); Osmolality Calculated 277 mOsm/kg (285-295); Potassium 4.5 mmol/L (3.5-5.1); Sodium 130 mmol/L (136-145); Total Bilirubin 0.4 mg/dL (0.15-1.2); Total Protein 7.8 g/dL (6.6-8.7)
[2022-01-10 16:02] VITALS: BP 128/75; PULSE 83; O2SAT 94
== END 2022-01-10 16:08 | disposition home or self-care (01) ==
PROVIDERS: Emergency Provider Emergency Medicine; PCP Nurse Practitioner
DX: U07.1 COVID-19 (principal); I11.0 Hypertensive heart disease with heart failure; I50.9 Heart failure, unspecified; E11.9 Type 2 diabetes mellitus without complications; Z79.4 Long term (current) use of insulin
CPT/HCPCS: 71045; 80053; 83605; 85025; 85378; 86140; 96360; 99284; J7040

== ENCOUNTER → 2022-02-12 10:08 | Outpatient (BNVA) | payer MEDICARE, OTHER, SELFPAY | PROVIDERS: PCP Nurse Practitioner; Visit Provider Nurse Practitioner | DX: I50.9 Heart failure, unspecified (principal); E11.65 Type 2 diabetes mellitus with hyperglycemia; I10 Essential (primary) hypertension; E03.8 Other specified hypothyroidism; Z79.4 Long term (current) use of insulin | CPT/HCPCS: 80053; 80061; 81000; 83036; 83880; 85025 ==

== ENCOUNTER → 2022-03-06 07:54 | Outpatient (BNVA) | payer MEDICARE, OTHER, SELFPAY | PROVIDERS: PCP Nurse Practitioner; Visit Provider Podiatrist Foot & Ankle Surgery | DX: I73.9 Peripheral vascular disease, unspecified (principal); E11.42 Type 2 diabetes mellitus with diabetic polyneuropathy; L60.3 Nail dystrophy; Z79.4 Long term (current) use of insulin | CPT/HCPCS: 11721; 99203; 99204 ==

== ENCOUNTER 2022-03-15 10:26 | Outpatient (CLI) | payer MEDICARE, OTHER, SELFPAY ==
--- NOTE | 2022-03-15 11:00 | USCV_ITS ---
Raine Glover Age: 81 Gender: F : 1940 Exam Date: 03/15/2022 10:44 Ordering Phys: Judson Calles MD (Andy) ([email or web address] [place]) Technologist: Alonzo Awad Exam Location: [facility] [place] Indication: carotid stenosis Risk Factors: Previous Vascular Surgery: Right Brachial BP: / Left Brachial BP: / Right Left Velocity (cm/s) Spectral Plaque Velocity (cm/s) Spectral Plaque Syst/Diast Broadening Syst/Diast Broadening 51.50/ 6.40 Prox CCA 77.20 / 17.60 41.40/ 10.50 Mid CCA 56.70 / 10.90 53.90/ 11.80 Distal CCA 47.40 / 11.70 101.70/15.40 Prox ICA 129.00/ 34.20 82.00/ 19.70 Mid ICA 147.20/ 30.20 74.30/ 20.50 Distal ICA 96.90 / 24.70 108.50 ECA 132.10 1.98 ICA/CCA 2.60 Antegrade Vertebral Antegrade 24.40/ 6.00 cm/s 63.60/ 15.40 cm/s Bi Subclavian Tri 109.2 57.60 0 FINDINGS Comparison: none available. Diffuse, mild bilateral scattered calcified plaque and intimal thickening throughout the common carotid arteries and extending through the bifurcation. Mild tortuosity and increase velocity left ICA. Antegrade vertebral arteries. CONCLUSIONS Bilateral ICA stenosis less than 50%. Mild carotid atherosclerosis, left greater than right. Dr. Pavithra Snyder DO (Electronically Signed) Final Date: 15 March 2022 11:14 S
== END 2022-03-15 10:27 | disposition home or self-care (01) ==
LOC: RAD 10:27
PROVIDERS: PCP Nurse Practitioner; Visit Provider Thoracic Surgery (Cardiothoracic Vascular Surgery)
DX: I65.23 Occlusion and stenosis of bilateral carotid arteries (principal)
CPT/HCPCS: 93880

== ENCOUNTER 2022-03-22 11:59 | Outpatient (CLI) | payer MEDICARE, OTHER, SELFPAY ==
[2022-03-22 13:29] LABS: Anion Gap 15.3 (5-19); Blood Urea Nitrogen 20 mg/dL (8-23); Calcium 10.6 mg/dL (8.5-10.5); Carbon Dioxide 31 mmol/L (22-29); Chloride 88 mmol/L (98-107); Glucose 189 mg/dL (65-115); NT Pro B Type Natriuretic Pept 1489 pg/mL (0-450); Osmolality Calculated 280 mOsm/kg (285-295); Potassium 3.3 mmol/L (3.5-5.1); Sodium 131 mmol/L (136-145)
== END 2022-03-22 12:00 | disposition home or self-care (01) ==
LOC: LAB 12:02
PROVIDERS: PCP Nurse Practitioner; Visit Provider Nurse Practitioner
DX: I73.9 Peripheral vascular disease, unspecified (principal); I77.9 Disorder of arteries and arterioles, unspecified; I50.9 Heart failure, unspecified
CPT/HCPCS: 80048; 83880; 99213

== ENCOUNTER → 2022-05-04 11:58 | Outpatient (BNVA) | payer MEDICARE, OTHER, SELFPAY | PROVIDERS: PCP Nurse Practitioner; Visit Provider Nurse Practitioner | DX: E11.65 Type 2 diabetes mellitus with hyperglycemia (principal); Z79.4 Long term (current) use of insulin; M79.10 Myalgia, unspecified site; I10 Essential (primary) hypertension; E03.8 Other specified hypothyroidism; I50.9 Heart failure, unspecified; K59.01 Slow transit constipation; F41.1 Generalized anxiety disorder | CPT/HCPCS: 80053; 85025 ==

== ENCOUNTER → 2022-05-07 13:56 | Outpatient (BNVA) | payer MEDICARE, OTHER, SELFPAY | PROVIDERS: PCP Nurse Practitioner; Visit Provider Internal Medicine Cardiovascular Disease | DX: I73.9 Peripheral vascular disease, unspecified (principal); R00.2 Palpitations; Z86.73 Personal history of transient ischemic attack (TIA), and cerebral infarction without residual deficits; E11.65 Type 2 diabetes mellitus with hyperglycemia; Z79.4 Long term (current) use of insulin; D69.6 Thrombocytopenia, unspecified; I11.0 Hypertensive heart disease with heart failure; I50.30 Unspecified diastolic (congestive) heart failure | CPT/HCPCS: 99214 ==

== ENCOUNTER 2022-07-04 23:14 | Emergency (ER) | payer MEDICARE, OTHER, SELFPAY ==
[2022-07-04 23:26] VITALS: BP 128/53; PULSE 74; RESP 18; TEMP 36.8; O2SAT 96; BMI 30.7
[2022-07-04 23:32] VITALS: BP 151/76; PULSE 72; RESP 16; O2SAT 97
--- NOTE | 2022-07-04 23:47 | W.ED.EXTPRO ---
Documented by User: STEPHANIE Hagan 07/05/22 03:17 HPI - Extremity Problem General: Chief complaint: Extremity Problem,Nontraumatic Stated complaint: right foot pain, redness Time Seen by Provider: 07/04/22 23:18 Source: patient and family Mode of arrival: wheelchair Limitations: no limitations History of Present Illness: Patient presents emergency department today accompanied by her family for evaluation and treatment of worsening redness, pain, and wounds to her right lower extremity. Patient reports she has had wounds for months but has recently noticed them getting worse. She was seen by her primary care doctor on Saturday and was given mupirocin cream and started on Augmentin. Family indicates the patient has been taking these medications. They are concerned as they have marked the spreading redness up the leg and it has continued to track upwards. Patient is also complaining of upper medial thigh pain at the location of her arterial stent which was placed approximately 1 year ago. Patient has a history of peripheral vascular disease and family indicates she has near full occlusion of several peripheral vessels that were unable to be stented or treated due to their size. Patient is anticoagulated on Plavix and aspirin. She is a diabetic and gets recurrent diabetic wounds. Patient's chart review shows she has had a left calcaneal wound requiring wound care management and treatment diagnosed as gangrene. Patient today has draining and macerated skin in the webspaces-especially the webspace between the first and second digits and fourth and fifth digits as well as a right-sided calcaneal heel ulcer. Review of Systems General: Reports: 10 or more systems reviewed and unremarkable except in HPI and below Musc: Reports: extremity pain Skin/Breast: Reports: erythema, skin pain, sores and non-healing lesions PFSH ED PFSH: Medical History Adult onset hypothyroidism CHF (congestive heart failure) Diabetes mellitus with hyperglycemia, with long-term current use of insulin Diabetic feet Generalized anxiety disorder GERD (gastroesophageal reflux disease) Gout Hearing loss right ear History of breast cancer HTN (hypertension) Non compliance w medication regimen XIOMARA (obstructive sleep apnea) PAD (peripheral artery disease) Status post angioplasty of lower extremities bilaterally as per the patient Urinary bladder disorder wears attends Vitamin D deficiency Surgical History S/P cataract extraction S/P hysterectomy S/P lumpectomy of breast Right Family History Grandmother Cancer BREAST Social History Smoking and tobacco status: never smoked Second hand smoke exposure: No Smoking risk assessment/counseling performed?: No Alcohol intake: never Desire information about alcohol rehabilitation?: No Counseling given: No Desire information about substance/drug rehabilitation?: No Counseling given: No Adopted: No Caregiver/support person: Yes Lives independently: No Household members: family Housing: House Marital status: / Number of children: 1 Number of grandchildren: 1 Highest education level completed: High School Graduate service: No Current occupational status: retired Current occupational exposures/hazards: No Pets and animals: Yes Pets & animals: dog(s) History of recent travel: No Current gender identity: Female Special sydnie needs: No Physical Exam Const: COMMON NORMALS: no acute distress, patient oriented x3 and alert HENMT: COMMON NORMALS: normocephalic, atraumatic and hearing grossly normal bilaterally HEAD & SCALP: normocephalic and atraumatic Eye: COMMON NORMALS: Equal, round and reactive pupils present, EOMs intact bilaterally and conjunctivae normal CONJUNCTIVA: Yes conjunctivae normal PUPIL: Yes Equal, round and reactive pupils present Neck/C-Spine: COMMON NORMALS: full ROM and no JVD Lymph: LYMPHATIC: no lymphadenopathy noted Resp: COMMON NORMALS: normal respiratory effort, No retractions and No use of accessory muscles Cardio: COMMON NORMALS: no JVD and regular rate RATE: regular rate Extremity: NARRATIVE EXTREMITY EXAM: Patient has erythema starting approximately right mid garcia extending down to the right toes. Severity of erythema worsens the more distally down the extremity. Patient has maceration and breakdown noted in the webspaces across all toes with the worst being between digits 1 and 2 and 4 and 5. There is cotton balls stuck in between these areas. Patient also has a right heel wound present with some overlying purulent accumulation and maceration noted. Patient's extremity is cool however, it does appear to be the same temperature as the left lower extremity. Patient is tender to palpation of the toes and the feet. She still demonstrates full flexion extension of the right hip and right ankle. Patient is tender to the right medial mid and upper thigh. Neuro: COMMON NORMALS: patient oriented x3 SENSORIUM/ORIENTATION: Yes alert Psych: COMMON NORMALS: mental status grossly normal, Normal thought process present, cooperative and normal affect THOUGHT PROCESS: Normal thought process present Skin: COMMON NORMALS: no rashes or lesions noted and turgor normal GENERAL SKIN EXAM: no rashes or lesions noted and turgor normal Course Vital Signs: Vital signs: Vital Signs Temperature 98.3 F 07/04/22 23:26 Pulse Rate 53 L 07/05/22 02:00 Respiratory Rate 16 07/05/22 01:03 Blood Pressure 151/62 07/05/22 03:10 Pulse Oximetry 97 07/05/22 03:10 Oxygen Delivery Me thod 07/05/22 01:03 MDM - Extremity (Nontraumatic) Medical Decision Making Patient presented to the emergency department today accompanied by her family for evaluation and treatment of continuing spreading redness of the right lower extremity and increasing pain. Patient has a long history of diabetic wounds and foot ulcers for which she has been seen for by wound care. Patient was seen by her primary care doctor on Saturday and there was concerns for cellulitis secondary to development of these wounds on the right foot and heel. Patient started antibiotics on Saturday as well as topical antibiotics. She comes in today she is continuing to have pain and discomfort. Patient's lab work is otherwise unremarkable however, with increasing pain and spreading redness without concerns for a worsening infection, we did check peripheral arterial blood flow which on ultrasound was found to have loss of flow in the infrapopliteal vasculature of the right lower extremity. Discussed the case with Dr. Anderson who has assumed transfer of care and discussion with patient regarding need for likely transfer to a higher level of care facility that has vascular surgery for her condition. Lab Data 07/04/22 23:36 07/04/22 23:36 Radiology Impressions Duplex Scan Lower Extremity Artery 07/05/22 23:40 IMPRESSION: No detectable flow in the infrapopliteal arteries. Monophasic waveforms throughout right thigh. Laboratory Results WBC 10.8 10^3/uL (4.0-10.0) H 07/04/22 23:36 RBC 4.96 10^6/uL (4.1-5.3) 07/04/22 23:36 Hgb 11.8 g/dL (11.5-15.3) 07/04/22 23: Hct 37.7 % (37.0-47.0) 07/04/22 23: MCV 76.0 fl (81-99) L 07/04/22 23: MCH 23.8 pg (28.0-34.0) L 07/04/22: MCHC 31.3 g/dL (30.0-36.0) 07/04/22 23: RDW 18.5 % (12.1-15.1) H 07/04/22 23:36 Plt Count 303 10^3/cmm (130-400) 07/04/22: MPV 10.3 fL (7.4-10.4) 07/04/22 23: Neut % (Auto) 65.8 % 07/04/22 23: Lymph % (Auto) 20.6 % 07/04/22: Kerr % (Auto) 10.7 % 07/04/22 23:36 Eos % (Auto) 2.0 % 07/04/22 23: Baso % (Auto) 0.7 % 07/04/22: Neut # (Auto) 7.09 10^3/uL (1.8-7.7) 07/04/22 23: Lymph # (Auto) 2.2 10^3/uL (0.8-4.8) 07/04/22 23:36 Kerr # (Auto) 1.2 10^3/uL (0.2-0.9) H 07/04/22 23: Eos # (Auto) 0.2 10^3/uL (0.0-0.8) 07/04/22 23: Baso # (Auto) 0.1 10^3/uL (0.0-0.1) 07/04/22: Nucleated RBC % (auto) 0 % 07/04/22: Nucleated RBCs # 0.0 /100WBC 07/04/22 23: Sodium 136 mmol/L (136-145) 07/04/22: Potassium 4.5 mmol/L (3.5-5.1) 07/04/22 23:36 Chloride 100 mmol/L (98-107) 07/04/22 23:36 Carbon Dioxide 24 mmol/L (22-29) 07/04/22 23:36 Anion Gap 16.5 (5-19) 07/04/22 23:36 BUN 32 mg/dL (8-23) H 07/04/22 23:36 Creatinine 1.2 mg/dL (0.5-0.9) H 07/04/22 23:36 GFR Calculation Not Reportable 07/04/22 23:36 Glucose 156 mg/dL (65-115) H 07/04/22 23:36 Calculated Osmolality 292 mOsm/kg (285-295) 07/04/22 23:36 Lactic Acid 1.1 mmol/L (0.5-2.2) 07/04/22 23:36 Calcium 9.4 mg/dL (8.5-10.5) 07/04/22 23:36 Total Bilirubin 0.3 mg/dL (0.15-1.2) 07/04/22 23:36 AST 24 U/L (0-32) 07/04/22 23:36 ALT 19 U/L (0-33) 07/04/22 23:36 Alkaline Phosphatase 81 U/L (35-105) 07/04/22 23:36 Total Protein 7.0 g/dL (6.6-8.7) 07/04/22 23:36 Albumin 3.8 g/dL (3.5-5.2) 07/04/22 23:36 Globulin 3.2 g/dL (1.3-4.6) 07/04/22 23:36 Urine Color Yellow (Yellow) 07/04/22 23:58 Urine Appearance Clear (CLEAR) 07/04/22 23:58 Urine pH 5 (5-7) 07/04/22 23:58 Ur Specific [place] 1.020 (1.005-1.030) 07/04/22 23:58 Urine Protein Not Reportable 07/04/22 23:58 Urine Glucose (UA) Trace (Normal) H 07/04/22 23:58 Urine Ketones Not Reportable 07/04/22 23:58 Urine Blood Not Reportable 07/04/22 23:58 Urine Nitrate Not Reportable 07/04/22 23:58 Urine Bilirubin Not Reportable 07/04/22 23:58 Urine Urobilinogen Not Reportable 07/04/22 23:58 Ur Leukocyte Esterase 1+ (Negative) H 07/04/22 23:58 Urine RBC Not Reportable 07/04/22 23:58 Urine WBC 15-25 /hpf (0-5) H 07/04/22 23:58 Ur Squamous Epith Cells 10-15 /hpf (0-5) H 07/04/22 23:58 Ur Transition Epith Cell 0-4 /hpf 07/04/22 23:58 Amorphous Sediment Not Reportable 07/04/22 23:58 Urine Bacteria 1+ /hpf (NONE) H 07/04/22 23:58 Discharge Plan Discharge Patient Disposition: Xfer Short-Term Hosp Clinical Impression: Critical limb ischemia of right lower extremity Condition: Stable Prescriptions: No Action cholecalciferol (vitamin D3) 125 mcg (5,000 unit) capsule 125 mcg PO DAILY Qty: 90 0RF (DME) Diabetic shoes with inserts See Rx Instructions .Route .MEDSUPPLY Qty: 1 0RF Rx Instructions: As directed nystatin 100,000 unit/gram powder 1 applic topical TID PRN (Reason: yeast dermatitis) Rx Instructions: large area, bilateral breasts, pannus for 30 days, dated 03/24/21 aspirin [Adult Aspirin Regimen] 81 mg tablet,delayed release (DR/EC) 81 mg PO DAILY Qty: 90 0RF tizanidine 2 mg tablet 2 mg PO BID PRN (Reason: muscle spasticity) Qty: 60 0RF hydralazine 10 mg tablet 10 mg PO BID Qty: 180 0RF glipizide 10 mg tablet 10 mg PO BID Qty: 180 0RF Plavix 75 mg tablet 75 mg PO DAILY Qty: 90 0RF atorvastatin 40 mg tablet 20 mg PO DAILY Qty: 90 0RF Lantus Solostar U-100 Insulin 100 unit/mL (3 mL) insulin pen 40 unit SUBCUT QAM Qty: 15 2RF levothyroxine 88 mcg tablet 88 mcg PO DAILY Qty: 90 0RF metolazone 2.5 mg tablet 2.5 mg PO DAILY Qty: 30 2RF metoprolol tartrate 50 mg tablet 50 mg PO BID Qty: 180 0RF potassium chloride 10 mEq tablet,ER particles/crystals 10 meq PO DAILY Qty: 90 0RF Hold Instructions: Doctor's Order Entresto 49-51 mg tablet 1 tab PO BID Qty: 60 2RF Senna Plus 8.6-50 mg capsule 1 tab-cap PO BID PRN (Reason: constipation) Qty: 60 2RF spironolactone 25 mg tablet 25 mg PO BID Qty: 180 0RF venlafaxine 75 mg capsule,extended release 24hr See Rx Instructions .ROUTE .COMPLEX Qty: 90 0RF Dose Instruction: Take 1 capsule by mouth once daily Rx Instructions: Take 1 capsule by mouth once daily mupirocin 2 % ointment 1 applic topical BID Qty: 22 0RF amoxicillin-pot clavulanate 875-125 mg tablet 1 tab PO BID 10 Days Qty: 20 0RF (DME) pen needle, diabetic 33 gauge x 5/32 needle See Rx Instructions .ROUTE .MEDSUPPLY Qty: 100 5RF Rx Instructions: 1 time day Referrals: Jamie Brock, [facility] [Primary Care Provider] - Coding Level of Care Code ED Pediatric Oncology Nurse for Chg Fwd Documented by User: Kelvin Anderson MD 07/05/22 03:36 HPI - Extremity Problem General: Chief complaint: Extremity Problem,Nontraumatic Stated complaint: right foot pain, redness Time Seen by Provider: 07/04/22 23:18 PFS ED PFSH: Medical History Adult onset hypothyroidism CHF (congestive heart failure) Diabetes mellitus with hyperglycemia, with long-term current use of insulin Diabetic feet Generalized anxiety disorder GERD (gastroesophageal reflux disease) Gout Hearing loss right ear History of breast cancer HTN (hypertension) Non compliance w medication regimen XIOMARA (obstructive sleep apnea) PAD (peripheral artery disease) Status post angioplasty of lower extremities bilaterally as per the patient Urinary bladder disorder wears attends Vitamin D deficiency Surgical History S/P cataract extraction S/P hysterectomy S/P lumpectomy of breast Right Family History Grandmother Cancer BREAST Social History Smoking and tobacco status: never smoked Second hand smoke exposure: No Smoking risk assessment/counseling performed?: No Alcohol intake: never Desire information about alcohol rehabilitation?: No Counseling given: No Desire information about substance/drug rehabilitation?: No Counseling given: No Adopted: No Caregiver/support person: Yes Lives independently: No Household members: family Housing: House Marital status: / Number of children: 1 Number of grandchildren: 1 Highest education level completed: High School Graduate service: No Current occupational status: retired Current occupational exposures/hazards: No Pets and animals: Yes Pets & animals: dog(s) History of recent travel: No Current gender identity: Female Special sydnie needs: No Physical Exam Extremity: NARRATIVE EXTREMITY EXAM: Patient has erythema starting approximately right mid garcia extending down to the right toes. Severity of erythema worsens the more distally down the extremity. Patient has maceration and breakdown noted in the webspaces across all toes with the worst being between digits 1 and 2 and 4 and 5. There is cotton balls stuck in between these areas. Patient also has a right heel wound present with some overlying purulent accumulation and maceration noted. Patient's extremity is cool however, it does appear to be the same temperature as the left lower extremity. Patient is tender to palpation of the toes and the feet. She still demonstrates full flexion extension of the right hip and right ankle. Patient is tender to the right medial mid and upper thigh. Patient's right foot is cold to touch pulses are not dopplerable Course Vital Signs: Vital signs: Vital Signs Temperature 98.3 F 07/04/22 23:26 Pulse Rate 53 L 07/05/22 02:00 Respiratory Rate 16 07/05/22 01:03 Blood Pressure 151/62 07/05/22 03:10 Pulse Oximetry 97 07/05/22 03:10 Oxygen Delivery Me thod 07/05/22 01:03 MDM - Extremity (Nontraumatic) Medical Decision Making Patient presented to the emergency department today accompanied by her family for evaluation and treatment of continuing spreading redness of the right lower extremity and increasing pain. Patient has a long history of diabetic wounds and foot ulcers for which she has been seen for by wound care. Patient was seen by her primary care doctor on Saturday and there was concerns for cellulitis secondary to development of these wounds on the right foot and heel. Patient started antibiotics on Saturday as well as topical antibiotics. She comes in today she is continuing to have pain and discomfort. Patient's lab work is otherwise unremarkable however, with increasing pain and spreading redness without concerns for a worsening infection, we did check peripheral arterial blood flow which on ultrasound was found to have loss of flow in the infrapopliteal vasculature of the right lower extremity. Discussed the case with Dr. Anderson who has assumed transfer of care and discussion with patient regarding need for likely transfer to a higher level of care facility that has vascular surgery for her condition. Patient presents here with likely acute ischemic limb she has been having increasing right calf pain and foot pain over the last [address] Mccoy shows no pulses past the popliteal artery I spoke to Dr. Mena cardiology who feels this needs vascular surgery he is knows the patient well did speak to vascular surgery at [facility] will transfer patient ER to ER for higher level of care Lab Data 07/04/22 23:36 07/04/22 23:36 Radiology Impressions Duplex Scan Lower Extremity Artery 07/05/22 23:40 IMPRESSION: No detectable flow in the infrapopliteal arteries. Monophasic waveforms throughout right thigh. Laboratory Results WBC 10.8 10^3/uL (4.0-10.0) H 07/04/22:36 RBC 4.96 10^6/uL (4.1-5.3) 07/04/22:36 Hgb 11.8 g/dL (11.5-15.3) 07/04/22: Hct 37.7 % (37.0-47.0) 07/04/22: MCV 76.0 fl (81-99) L 07/04/22:36 MCH 23.8 pg (28.0-34.0) L 07/04/22: MCHC 31.3 g/dL (30.0-36.0) 07/04/22: RDW 18.5 % (12.1-15.1) H 07/04/22 23:36 Plt Count 303 10^3/cmm (130-400) 07/04/22 23:36 MPV 10.3 fL (7.4-10.4) 07/04/22 23:36 Neut % (Auto) 65.8 % 07/04/22 23:36 Lymph % (Auto) 20.6 % 07/04/22 23:36 Kerr % (Auto) 10.7 % 07/04/22 23:36 Eos % (Auto) 2.0 % 07/04/22 23:36 Baso % (Auto) 0.7 % 07/04/22 23:36 Neut # (Auto) 7.09 10^3/uL (1.8-7.7) 07/04/22 23:36 Lymph # (Auto) 2.2 10^3/uL (0.8-4.8) 07/04/22 23:36 Kerr # (Auto) 1.2 10^3/uL (0.2-0.9) H 07/04/22 23:36 Eos # (Auto) 0.2 10^3/uL (0.0-0.8) 07/04/22 23:36 Baso # (Auto) 0.1 10^3/uL (0.0-0.1) 07/04/22 23:36 Nucleated RBC % (auto) 0 % 07/04/22 23:36 Nucleated RBCs # 0.0 /100WBC 07/04/22 23:36 Sodium 136 mmol/L (136-145) 07/04/22 23:36 Potassium 4.5 mmol/L (3.5-5.1) 07/04/22 23:36 Chloride 100 mmol/L (98-107) 07/04/22 23:36 Carbon Dioxide 24 mmol/L (22-29) 07/04/22 23:36 Anion Gap 16.5 (5-19) 07/04/22 23:36 BUN 32 mg/dL (8-23) H 07/04/22 23:36 Creatinine 1.2 mg/dL (0.5-0.9) H 07/04/22 23:36 GFR Calculation Not Reportable 07/04/22 23:36 Glucose 156 mg/dL (65-115) H 07/04/22 23:36 Calculated Osmolality 292 mOsm/kg (285-295) 07/04/22 23:36 Lactic Acid 1.1 mmol/L (0.5-2.2) 07/04/22 23:36 Calcium 9.4 mg/dL (8.5-10.5) 07/04/22 23:36 Total Bilirubin 0.3 mg/dL (0.15-1.2) 07/04/22 23:36 AST 24 U/L (0-32) 07/04/22 23:36 ALT 19 U/L (0-33) 07/04/22 23:36 Alkaline Phosphatase 81 U/L (35-105) 07/04/22 23:36 Total Protein 7.0 g/dL (6.6-8.7) 07/04/22 23:36 Albumin 3.8 g/dL (3.5-5.2) 07/04/22 23:36 Globulin 3.2 g/dL (1.3-4.6) 07/04/22 23:36 Urine Color Yellow (Yellow) 07/04/22 23:58 Urine Appearance Clear (CLEAR) 07/04/22 23:58 Urine pH 5 (5-7) 07/04/22 23:58 Ur Specific [place] 1.020 (1.005-1.030) 07/04/22 23:58 Urine Protein Not Reportable 07/04/22 23:58 Urine Glucose (UA) Trace (Normal) H 07/04/22 23:58 Urine Ketones Not Reportable 07/04/22 23:58 Urine Blood Not Reportable 07/04/22 23:58 Urine Nitrate Not Reportable 07/04/22 23:58 Urine Bilirubin Not Reportable 07/04/22 23:58 Urine Urobilinogen Not Reportable 07/04/22 23:58 Ur Leukocyte Esterase 1+ (Negative) H 07/04/22 23:58 Urine RBC Not Reportable 07/04/22 23:58 Urine WBC 15-25 /hpf (0-5) H 07/04/22 23:58 Ur Squamous Epith Cells 10-15 /hpf (0-5) H 07/04/22 23:58 Ur Transition Epith Cell 0-4 /hpf 07/04/22 23:58 Amorphous Sediment Not Reportable 07/04/22 23:58 Urine Bacteria 1+ /hpf (NONE) H 07/04/22 23:58 Critical Care Time Critical Care Time: Critical Care Time: Yes Total Critical Care Time: 50 Attestation: The high probability of a clinically significant, sudden or life threatening deterioration of the patient's vasc system(s) required my full and direct attention, intervention and personal management. The critical care time is as shown. This time is in addition to time spent performing any reported procedures but includes the following: [x] Data and vital sign review and interpretation [x] Patient assessment, examination and intervention [x] Documentation [x] Medication orders and management Discharge Plan Discharge Patient Disposition: Xfer Short-Term Hosp Clinical Impression: Critical limb ischemia of right lower extremity Condition: Stable Prescriptions: No Action cholecalciferol (vitamin D3) 125 mcg (5,000 unit) capsule 125 mcg PO DAILY Qty: 90 0RF (DME) Diabetic shoes with inserts See Rx Instructions .Route .MEDSUPPLY Qty: 1 0RF Rx Instructions: As directed nystatin 100,000 unit/gram powder 1 applic topical TID PRN (Reason: yeast dermatitis) Rx Instructions: large area, bilateral breasts, pannus for 30 days, dated 03/24/21 aspirin [Adult Aspirin Regimen] 81 mg tablet,delayed release (DR/EC) 81 mg PO DAILY Qty: 90 0RF tizanidine 2 mg tablet 2 mg PO BID PRN (Reason: muscle spasticity) Qty: 60 0RF hydralazine 10 mg tablet 10 mg PO BID Qty: 180 0RF glipizide 10 mg tablet 10 mg PO BID Qty: 180 0RF Plavix 75 mg tablet 75 mg PO DAILY Qty: 90 0RF atorvastatin 40 mg tablet 20 mg PO DAILY Qty: 90 0RF Lantus Solostar U-100 Insulin 100 unit/mL (3 mL) insulin pen 40 unit SUBCUT QAM Qty: 15 2RF levothyroxine 88 mcg tablet 88 mcg PO DAILY Qty: 90 0RF metolazone 2.5 mg tablet 2.5 mg PO DAILY Qty: 30 2RF metoprolol tartrate 50 mg tablet 50 mg PO BID Qty: 180 0RF potassium chloride 10 mEq tablet,ER particles/crystals 10 meq PO DAILY Qty: 90 0RF Hold Instructions: Doctor's Order Entresto 49-51 mg tablet 1 tab PO BID Qty: 60 2RF Senna Plus 8.6-50 mg capsule 1 tab-cap PO BID PRN (Reason: constipation) Qty: 60 2RF spironolactone 25 mg tablet 25 mg PO BID Qty: 180 0RF venlafaxine 75 mg capsule,extended release 24hr See Rx Instructions .ROUTE .COMPLEX Qty: 90 0RF Dose Instruction: Take 1 capsule by mouth once daily Rx Instructions: Take 1 capsule by mouth once daily mupirocin 2 % ointment 1 applic topical BID Qty: 22 0RF amoxicillin-pot clavulanate 875-125 mg tablet 1 tab PO BID 10 Days Qty: 20 0RF (DME) pen needle, diabetic 33 gauge x 5/32 needle See Rx Instructions .ROUTE .MEDSUPPLY Qty: 100 5RF Rx Instructions: 1 time day Referrals: Jamie Brock, [employer] [Primary Care Provider] - Coding Level of Care Code ED Pediatric Oncology Nurse for Kenny Hurley
[2022-07-04 23:59] VITALS: BP 140/80; PULSE 72; O2SAT 98
[2022-07-04 23:59] LABS: Basophils # 0.1 10^3/uL (0.0-0.1); Basophils % 0.7 %; Eosinophils # 0.2 10^3/uL (0.0-0.8); Hematocrit 37.7 % (37.0-47.0); Hemoglobin 11.8 g/dL (11.5-15.3); Lymphocytes # 2.2 10^3/uL (0.8-4.8); Lymphocytes % 20.6 %; Mean Corpuscular HGB Conc 31.3 g/dL (30.0-36.0); Mean Corpuscular Hemoglobin 23.8 pg (28.0-34.0); Mean Platelet Volume 10.3 fL (7.4-10.4); Monocytes # 1.2 10^3/uL (0.2-0.9); Monocytes % 10.7 %; Neutrophils # 7.09 10^3/uL (1.8-7.7); Neutrophils % 65.8 %; Nucleated Red Blood Cells % 0 %; Platelet Count 303 10^3/cmm (130-400); Red Blood Count 4.96 10^6/uL (4.1-5.3); Red Cell Distribution Width 18.5 % (12.1-15.1); White Blood Count 10.8 10^3/uL (4.0-10.0)
[2022-07-05] VITALS (7 sets, daily range): BP systolic 113–151; BP diastolic 54–93; PULSE 53–67; RESP 16; O2SAT 95–98
[2022-07-05 00:02] LABS: Charge for UA Resulting for Rev
[2022-07-05 00:11] LABS: Glucose Urine UA Trace (Normal); Urine Appearance Clear (CLEAR); Urine Color Yellow (Yellow); pH Urine 5 (5-7)
[2022-07-05 00:12] LABS: Add Urine Microscopic? YES; Leukocyte Esterase Urine 1+ (Negative)
[2022-07-05 00:20] LABS: Alanine Aminotransferase 19 U/L (0-33); Albumin Level 3.8 g/dL (3.5-5.2); Alkaline Phosphatase 81 U/L (35-105); Anion Gap 16.5 (5-19); Aspartate Amino Transferase 24 U/L (0-32); Calcium 9.4 mg/dL (8.5-10.5); Carbon Dioxide 24 mmol/L (22-29); Chloride 100 mmol/L (98-107); Creatinine Clr Calc Pharmacy 41.3756; Globulin 3.2 g/dL (1.3-4.6); Lactic Sepsis W/Reflex 1.1 mmol/L (0.5-2.2); Osmolality Calculated 292 mOsm/kg (285-295); Potassium 4.5 mmol/L (3.5-5.1); Sodium 136 mmol/L (136-145); Total Bilirubin 0.3 mg/dL (0.15-1.2)
[2022-07-05 00:20] LABS: Bacteria Urine 1+ /hpf
[2022-07-05] MEDS: tizanidine 4 mg Tablet 2 MG PO (00:22)
[2022-07-05 00:24] LABS: Transitional Epi Cells Urine 0-4 /hpf; WBC Urine 15-25 /hpf (0-5)
[2022-07-05 00:25] LABS: Add Urine Culture? No
[2022-07-05 00:41] LABS: Blood Urea Nitrogen 32 mg/dL (8-23); Glucose 156 mg/dL (65-115)
[2022-07-05] MEDS: HYDROmorphone 1 mg/mL INJ 1 mL 0.4 MG IVP (00:58)
[2022-07-05] MEDS: heparin drip 25,000 UNIT/500 ML PREMIX 16.55 UNIT IV (03:21)
[2022-07-05] MEDS: heparin 5,000 unit/mL INJ 1 mL 4000 UNIT IVP (03:21)
[2022-07-05] MEDS: HYDROmorphone 1 mg/mL INJ 1 mL 0.5 MG IVP (03:54)
[2022-07-05] MEDS: ondansetron 2 mg/ML SDV 2 mL 4 MG IVP (03:54)
--- NOTE | 2022-07-05 04:13 | PC.NURSE ---
Report called to Lizzy DAILEY at [facility] in [facility]. Patient being transferred due to occlusion in right leg. Family at bedside, and patient updated on transfer.
--- NOTE | 2022-07-05 23:40 | USR_ITS ---
PROCEDURE INFORMATION: Exam: US Duplex Right Lower Extremity Arteries Or Arterial Bypass Grafts Exam date and time: 07/05/2022 12:45 AM Age: 81 years old Clinical indication: Leg, upper and leg, lower and foot and toes; Patient HX: Right thigh pain, HX of stenting, pvd, redness and pain of rle TECHNIQUE: Imaging protocol: Right Real-time duplex scan of the arteries or arterial bypass grafts of the right lower extremity with 2-D chery scale, color Doppler flow and spectral waveform analysis. Images documented and saved. COMPARISON: No relevant prior studies available. FINDINGS: Monophasic waveforms are seen in the common femoral, superficial femoral, and popliteal arteries. Flow at distal popliteal artery becomes markedly dampened. No detectable flow in the infrapopliteal arteries. US/[place] [id number] IMPRESSION: No detectable flow in the infrapopliteal arteries. Monophasic waveforms throughout right thigh.
== END 2022-07-05 04:46 | disposition short-term general hospital (02) ==
PROVIDERS: Emergency Provider Physician Assistant; PCP Nurse Practitioner
DX: I70.221 Atherosclerosis of native arteries of extremities with rest pain, right leg (principal); E11.621 Type 2 diabetes mellitus with foot ulcer; L97.419 Non-pressure chronic ulcer of right heel and midfoot with unspecified severity
CPT/HCPCS: 80053; 81001; 81003; 83605; 85025; 87040; 93926; 96374; 96375; 96376; 99284; J1170; J1644; J2405

== ENCOUNTER → 2022-08-01 13:12 | Outpatient (BNVA) | payer MEDICARE, OTHER, SELFPAY | PROVIDERS: PCP Nurse Practitioner; Visit Provider Podiatrist Foot & Ankle Surgery | DX: I73.9 Peripheral vascular disease, unspecified (principal); E11.65 Type 2 diabetes mellitus with hyperglycemia; Z79.4 Long term (current) use of insulin; I50.9 Heart failure, unspecified | CPT/HCPCS: 99214 ==